=== PATIENT | male | born 1950 | race Caucasian/White ===

== ENCOUNTER 2018-03-05 10:30 | Outpatient (RCR) | payer MEDICARE, BC, SELFPAY ==
--- NOTE | 2018-02-27 09:00 | IE_ITS ---
Date: February 27, 2018 Referring: Shellie Jean DO M.D. Diagnosis: Osteoarthritis R hip, s/p CRISTAL P.T. Diagnosis: Same SUBJECTIVE: History of Present Illness: Adin complains of intermittent discomfort throughout the anteromedial aspect of the R hip. This generally occurs with prolonged weight bearing activities, minimally symptomatic with sitting or lying. He has some mild a.m. stiffness for a few mins and his symptoms improve with walking. More noticeable towards the latter part of an active day. A 67 year old male with osteoarthritis of the knees and R hip, s/p bilateral TKA 's. Most recent on the R in October 2016. He underwent a R CRISTAL on 02/02/18. Doing well post op the first 10 days, then he jumped on his lawn tractor and aggravated his condition. Symptoms increased significantly, then settled back down, but not quite back to where they were. He underwent a CT scan recently to rule out damage to the recent hip and apparently was (-) according to Adin. Pain Ratin-5/10 Pain Location: Throughout the anterolateral aspect of the R hip. Prior Level of Function: Had difficulty standing or walking for any prolonged periods due to R knee pain. Current Level of Function: Is limited to walking a couple 100 yards before fatigue with the sense of his R knee buckling, etc. . . Social: , retired. Comorbidities: BPH, hyperlipidemia and anxiety. S/p bilateral TKAs. Falls in the last year: __X__ No ____Yes - How many? ____ - (if over 2, balance SM needs to be completed) Reported hospitalizations in the last year - ____ No __X__ Yes - Dates of admission/reason: Recent CRISTAL. Medications: Simvastatin, Flomax, Prozac Quality of Life: ____ Excellent __X__ Good ____ Fair ____ Poor Standardized Measures: LEFS score: 72% OBJECTIVE: Posture: Stands slightly anteroflexed, R foot forward to the L. More weight shifted on the L more than R. Observation: (behavior, atrophy, skin color, etc.) Pleasant, no abnormal pain behavior noted. Gait: Enters the clinic using a cane. He was using a walker up until yesterday and is now back to a cane and many times without now since being encouraged to do so by Dr. Jean. When walking with a cane, he places it in his R hand. I change this to improve his gait technique by using it in the L hand. His antalgia is really no different whether he uses the can or not. Gait is characterized by antalgia on the R from mid stance to toe off with poor R knee and hip extension from mid stance to push off, along with excessive pelvic rotation posteriorly on the R. He is able to walk on his heel and toes without weakness. Palpation: Has some mild thickening and tenderness throughout the scar. His incision is healing well. Has eschar throughout the entire length, (-) erythema or odor. ROM: His lumbar movements in the upright position flexion able to touch fingertips to floor with end range drawing throughout the hamstrings. Extension is limited to approximately 0 to 10 degrees with a drawing throughout the anterior aspect of the R hip. He flexes his R hip and knee, he is able to extend 15-20 degrees. His sidebending and sidegliding are non-painful. L hip motion is full and painless with movement. R hip flexion is limited to 105 degrees, abduction initially 30-35 degrees, but with some gentle stretching and muscle energy techniques, and light traction I can get him close to 40-55 degrees. His IR in prone position is at 35-40 degrees and ER is at 30 degrees. His L hip extension is at +20 degrees, R 0 degrees with end range drawing throughout the anterior aspect of the hip. His R knee motion is at -10 to 15 degrees of extension with end range drawing throughout the popliteal fossa. Talocrural, subtalar movements are non-irritable with good functional range. Strength: Has some subtle weakness with performing SLR on the in supine position, lesser degree to abduction in sidelying position. His L hip extension in prone position is 5/5, R 2-3/5. He has decreased muscle tone through the R glut compared to L with glut set, along with poor pelvic stability with compensatory movements when extending the R hip. His external rotators are 2-3/5. Neuro: (-) SLR bilaterally with hamstring length at 60-70 degrees, (-) femoral nerve stretch. Sensation intact and has full Motor control. Special Tests: (-) SLR bilaterally, (-) slump test. Treatment: Consisted of the evaluation along with some gait training, issuing him a written and illustrated home program consisting of strengthening exercises to the R gluts and external rotators along with gentle stretching to the R hip flexor and anterior capsule. Also have him self massage the scar region. Will see him 2x a week for the next 6 weeks for gait training, core and R LE strengthening exercises with emphasis on the hip and knee musculature, stretching the anterior capsule/ hip flexor as well as the R knee. IE: [id number] Therapeutic procedures ([id number]). Direct treatment time: 60 MINS Total treatment time: 60 MINS ASSESSMENT: Patient is a 67-year-old male, referred for PT services with the diagnosis of recent R CRISTAL. Patient presents with clinical signs and symptoms consistent with this diagnosis, following a flare up of being too active, as demonstrated by the following impairment level findings: Limited ROM of R hip into extension, poor R knee extension, weakness of hip external rotators and extensors on the R. Impairments are contributing to the following functional limitations: Gait abnormalities, particularly from mid stance to toe off, along with poor ambulatory endurance and intermittent anterolateral hip discomfort. Patient is assessed as: __X__ Low 80465 ____ Moderate 35126 ____ High 24855 complexity, based on the following: History: (list): Recent R CRISTAL with resolution of his referred R knee pain. See comorbidities and social history. Examination: (list): X See above for functional limitations and impairments. Presentation: Stable . X Evolving Unstable Decision-Making: Low complexity X Moderate complexity X High complexity % Disability based on LEFS of 72% __X__ Patient requires skilled PT intervention to remediate the above functional limitations to return to: __X__ Return to full functional mobility Prognosis: __X__ Excellent __X__ Good ____ Fair ____ Poor G-Codes (fill in modifier after appropriate code): Patient's primary functional limitation is in the category of: __x__ Mobility - walking and moving around : [id number] Projected goal: __x__ Mobility - walking and moving around: [id number] STG: __6__ weeks. 1: Improve gait mechanics. 2: Stretch the anterior capsule and hip flexors to increase dynamic stability of R hip/knee. LTG: __12__ weeks. 1: Return to full, pain-free, functional mobility. 2: Independent with self-maintenance program. PLAN: Treatment: Consisted of the evaluation along with some gait training, issuing him a written and illustrated home program consisting of strengthening exercises to the R gluts and external rotators along with gentle stretching to the R hip flexor and anterior capsule. Also have him self massage the scar region. Will see him 2x a week for the next 6 weeks for gait training, core and R LE strengthening exercises with emphasis on the hip and knee musculature, stretching the anterior capsule/ hip flexor as well as the R knee. Thank you for this referral. Please do not hesitate to contact me with any questions or concerns regarding this patient's plan of care. *Dr. Jean, please sign this evaluation if you are in agreement with the above stated plan of care. cc: Shellie Jean,
--- NOTE | 2018-03-03 10:34 | PTTR_ITS ---
DATE: 03/03/18 SUBJECTIVE: Adin stating he had a fall yesterday when installing a hot water heater. He states that the heater and himself went over forward in slow motion. He did not hurt himself although he was sore throughout the day. He woke up stiff this morning but did feel better after doing his exercises. OBJECTIVE: Pt walking with antalgic gait pattern. I do recommend utilizing his cane if he is sore from his fall until he can normalize his gait some. Pt in agreement with this. We review gait mechanics with the cane in left UE. Manual therapy: ([id number]). Perform scar mobilizations right anterior hip followed by mobilization of the hip into all planes. Provide light distraction with mobilization into hip flexion to approx. 100 degrees. In prone he was stretched into internal and external rotation followed by stretching of his quads and hip flexors. Also provide overpressure stretching into right knee extension where he continues to lack a couple of degrees here. Therapeutic procedures ([id number]). * X HEP review: Review current program and progress to including standing hip flexion strengthening, clam shells, SL hip abduction, SLR and knee extension. Pt does note some discomfort through the anterior hip with SLR and he will hold on these at home if they are bothersome. See scanned documents for the list of exercises. He ends with bicycle x 6 minutes and he can add this to his home program. Direct treatment time: 35 minutes Total treatment time: 35 minutes Bhavana Mathew, PBX REPAIRER
--- NOTE | 2018-03-05 10:30 | PTTR_ITS ---
DATE: 03/05/18 SUBJECTIVE: Adin feels he is making progress each day. Continues to have some intermittent discomfort throughout the anterior aspect of the R hip with stretch and weight bearing. OBJECTIVE: Enters the clinic with a cane, but he is able to walk without. He has some mild antalgia on the R with altered R hip and knee extension from mid stance to toe off. We focused on the proper gait mechanics. His AA R hip motion is non-irritable. Flexion is at around 90 degrees and he tends to externally rotate, so I have him try and keep his leg in neutral position as he is flexing his hip. Rotation is non-irritable. He has some mild weakness with his external rotators when tested in supine position. Hip flexion is non-painful in sitting. I do not have him do a SLR in supine position yet, it causes discomfort throughout the anterior aspect of the hip and also puts added pressure on the prosthetic device, etc. He has mild tenderness to palpation throughout the anterior aspect of the R hip. (+) Alexandre test on the R at about 20 degrees. I add this to his HEP also. Therapeutic procedures ([id number]). Direct treatment time: 30 mins Total treatment time: 30 mins A: Doing well, still has some tightness throughout the anterior capsule/hip flexor resulting in some gait abnormality, but certainly better than it was last week. Will show him some additional stretches for the hip mechanism. P: Upgraded his HEP given him a written and illustrated copy. He as a follow up next week. DLW/dl
--- NOTE | 2018-03-05 14:31 | PTTR_ITS ---
03/05/18 Co-treatment with Mateo Albright PT. Please see his note for specifics: Therapeutic Procedures [id number]: Initiate a therex routine here in the clinic for gentle hip girdle strengthening exercises and general LE strengthening. Provided skilled instruction in exercise performance and proper muscle activation throughout. See flow sheet for specifics. Direct time: 20 minutes Total time: 20 minutes Bhavana Mathew , RUST PROOFER
== END 2018-03-06 23:59 | disposition home or self-care (01) ==
LOC: PT 10:30
PROVIDERS: PCP Family Medicine; Referring Provider Family Medicine; Visit Provider Family Medicine
DX: M25.561 Pain in right knee (principal); M25.551 Pain in right hip; M16.11 Unilateral primary osteoarthritis, right hip; R26.89 Other abnormalities of gait and mobility; Z96.653 Presence of artificial knee joint, bilateral
CPT/HCPCS: 97110; 97140; 97161; G8978

== ENCOUNTER 2018-07-30 15:58 | Inpatient (IN) | payer MEDICARE, BC, SELFPAY ==
[2018-07-30] VITALS (48 sets, daily range): BP systolic 132–158; BP diastolic 56–92; PULSE 66–89; RESP 20–83; TEMP 37; O2SAT 88–96
--- NOTE | 2018-07-30 16:22 | DI.CT_ITS ---
SYMPTOM/DIAGNOSIS: ? FX, TRAUMA, PAIN NONCONTRAST HEAD AND FACIAL CT: The ventricles and sulci are consistent with the patient's age. The ventricles are intact. The basilar cisterns are patent. There is a normal cabrales white matter differentiation. No intracranial hemorrhage, acute midline shift or mass effect is identified. No calvarial fracture is seen. There is a nondisplaced fracture of the right zygomatic arch. There is a minimally depressed fracture involving the lateral wall of the right maxillary sinus and a mildly depressed fracture involving the medial wall of the right maxillary sinus. There is a nondisplaced fracture involving the anterior wall of the right maxillary sinus which extends superiorly medial to the infra- orbital foramen into the floor of the right orbit. No depression is seen. No muscle entrapment is identified. The orbital and retro-orbital soft tissues are unremarkable on the right. There is a fluid level seen in the right maxillary sinus. The remaining visualized paranasal sinuses are clear except for a small fluid level in the sphenoid sinuses. The mastoid air cells are well pneumatized. Post surgical changes are seen in the right globe. IMPRESSION: 1. No acute intracranial process. 2. Fractures involving the right zygoma, the lateral and medial adrian of the right maxilla. 3. Nondisplaced fracture involving the anterior wall of the right maxilla with extension superiorly into the right orbital floor. No orbital floor depression or muscle entrapment is identified. CERVICAL SPINE CT: Multiple contiguous axial images of the cervical spine were obtained. Sagittal and coronal reformatted images were evaluated on the [employer] work station. No acute fracture or subluxation is seen in the cervical spine. There are degenerative changes present. The soft tissues are unremarkable. IMPRESSION: No acute fracture or subluxation in the cervical spine.
--- NOTE | 2018-07-30 16:29 | W.ED.GENAD ---
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 Mr. Mccracken was brought in to the ED by his neighbor after presumably sustaining a fall on the ice. Patient was actually unsure regarding potential transient loss of consciousness as he has had no memory of the event. The fall caused a subsequent trauma to the right side of his face, as well as with an initially noted irregular and unresponsive right pupil. 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 Imaging with a CT of his head, neck and face demonstrated no acute intracranial findings, but a non-displaced fracture of his right zygoma, right lateral orbital wall and anterior and medial right maxillary sinsus adrian were demonstrated. [place] [facility] [place] and advised beginning Augmentin due to the fracture through the maxillary sinus, and to have the patient follow up with ENT as an outpatient, with no surgical needs at this time. However, because of continued nausea and vomiting the patient was admitted. Since his admission a repeat CT was obtained on 07/31 showing no acute IC hemorrhage, including a SDH. Patient appears improved overall, now reported resolved nausea and headache since yesterday. No other events reported. Remains afebrile. Hospital Course: (1) Unwitnessed fall: No evidence of abnormalities by tele again overnight with the exception of mild bradycardia, and ECHO essentially normal. Cardiac Biomarkers checked and negative. Will recommend carotid ultrasound as an outpatient to complete work-up for possible syncope - however, potentially with fall on the ice and post-concussive symptoms that include loss of memory of event. Bradycardia has been intermittent and longstanding per review of prior vitals, going back to minimum of 2010. Will obtain a Zio patch for a more prolonged monitoring. Will also check an EEG per neuro recommendations, but doubt seizure activity as etiology for patient's fall without classic features. Repeat CT unchanged and without acute pathology. (2) Postconcussive syndrome: Noted. Currently nausea appears resolved, as are headaches for over 24 hours. Patient advised to return to the ED or call his doctor's office if symptoms recur or persist. (3) Facial fracture due to fall: Follow-up ENT as outpatient. Continue Augmentin for another 7 days. Currently on modified diet. (4) Head injury, closed, with concussion: Repeat Head CT negative for IC Hemorrhage. (5) Disposition: Patient discharged home with follow-up to be planned for ENT and PCP within 1 week of discharge. An outpatient EEG and Carotid ultrasound will be scheduled as well. Discharge Instructions Instructions: Syncope (DC), Fall Prevention (DC) Forms: Nursing Discharge Form Referrals: Nolvia Lam MD [ [facility] STAFF PHYSICIAN] - (Please call to schedule an appointment with Neurology.) Discharge Data Discharge Date/Time-TO BE ENTERED AT DEPARTURE: 07/30/18 23:45 Medical Decision Making Patient 67-year-old male, brought in by his , with chief complaint of facial trauma. He reports that around 1430, he fell forward striking his face. Patient does not remember the fall. Unknown if loss of consciousness. Patient was with neighbors at 1430 and then contacted his , sounding confused at 1500 making the fall between that span of time. Patient does have a history of stroke, believes this affected his left side. Denies pain elsewhere. feels that his confusion has been improving. Remembers being with neighbors, remembers lunch. A&O at this time. On exam, patient has dried blood in the nares, ecchymosis on the inferior aspect of the right eye around the orbit. The right pupil appears blown, is irregular and unresponsive. The eye is otherwise normal-appearing. Left pupil is round and responsive. Will send patient immediately to CT. Will scan head, face, neck. Strength equal in bilateral upper and lower extremities. No focal deficit noted elsewhere at this time. Patient in a collar, placed by nursing staff. I reviewed the CT quickly, and not do appreciate any large area of bleed I am waiting for radiology report. I did note changes in the left eye, questioning post surgical changes, most consistent with buckle placement. contacted his opthalmologist, she reports he has had 6 surgeries, primarily for retinal detachment. reports that right pupil is typically irregularly shaped, 6mm and fixed. This is consistent with what I am seeing on exam. EKG reviewed by Dr. Shepard. He advised inverted T waves, compared to previous, notes that this is unchanged. No acute ischemic changes noted. NSR rate 72. At the end of my shift, care transitioned to Dr. Shepard with CT and laboratory evaluation pending. HPI General Mode of arrival: ambulatory. Date/Time Provider Initiated Documentation: 07/30/18 16:22. Limitations to Documentation: no limitations. Information obtained by: patient and family (brought in by ). History of Present Illness 67 year old M presents to the emergency department with the chief complaint of head injury, described as moderate, with intensity rated at 5. Quality is described as aching, and is localized to the head and face. Patient reports no radiation. Patient started experiencing this hour(s) (1) and it has been constant. No relieving factors improve symptom(s), No exacerbating factors reported . Patient notes confusion, headaches, rash (ecchymosis), shortness of breath (chronic, reports unchanged) and syncope (unknown if LOC); denies chest pain, cough, fever/chills, malaise and nausea/vomiting. Patient did receive the following treatments prior to arrival, none Related Data Home Medications Medication Instructions Recorded Confirmed acyclovir 400 mg PO BID #180 tab-cap 05/21/16 07/30/18 Durezol 1 drp OPHTHALMIC QID drp 10/03/16 07/30/18 aspirin 325 mg PO DAILY #90 tab-cap 07/10/17 07/30/18 fluoxetine [Prozac] 20 mg PO DAILY #90 tab-cap 12/12/17 07/30/18 simvastatin 1 tab PO HS #90 tab-cap 12/12/17 07/30/18 tamsulosin 0.4 mg capsule 0.8 mg PO HS #180 tab-cap 05/21/18 07/30/18 finasteride 5 mg tablet 5 mg PO HS #90 tab-cap 06/19/18 07/30/18 acetaminophen-codeine 1 - 2 tab PO Q4H PRN PRN #20 tab 08/02/18 [Tylenol-Codeine #3] amoxicillin-pot clavulanate 1 tab PO BID #14 tab 08/02/18 Previous Rx's Medication Instructions Recorded aspirin 325 mg PO DAILY #90 tab-cap 07/10/17 fluoxetine [Prozac] 20 mg PO DAILY #90 tab-cap 12/12/17 simvastatin 1 tab PO HS #90 tab-cap 12/12/17 tamsulosin 0.4 mg capsule 0.8 mg PO HS #180 tab-cap 05/21/18 finasteride 5 mg tablet 5 mg PO HS #90 tab-cap 06/19/18 acetaminophen-codeine 1 - 2 tab PO Q4H PRN PRN #20 tab 08/02/18 [Tylenol-Codeine #3] amoxicillin-pot clavulanate 1 tab PO BID #14 tab 08/02/18 Allergies Allergy/AdvReac Type Severity Reaction Status Date / Time Sulfa (Sulfonamide Allergy Unknown Unverified 07/30/18 16:20 Antibiotics) General Stated Complaint: AMS/LOC SUSAN: 3 Review of Systems Constitutional Reports as per HPI, Denies chills, Reports fatigue, Denies fever(s), Reports headache(s) and Denies weakness Eyes Reports as per HPI, Denies change in vision (chronic right eye visual changes), Denies diplopia and Denies eye discharge ENT Denies ear discharge, Denies otalgia, Reports facial pain (around right eye), Reports headache(s), Denies hearing loss, Denies lip swelling, Reports epistaxis (since resolved), Denies mouth lesions, Denies mouth pain and Denies sore throat Cardiovascular Reports as per HPI, Denies chest pain and Reports dyspnea (chronic, unchanged) Respiratory Denies cough, Denies pain on inspiration, Denies pain with cough and Reports dyspnea (chronic, unchanged) Gastrointestinal Reports as per HPI, Denies abdominal pain, Denies nausea and Denies vomiting Genitourinary Reports as per HPI and Denies urinary incontinence Musculoskeletal Reports as per HPI Integumentary/Breasts Reports as per HPI and Denies rash Neurologic Reports headache(s) and Denies weakness Endocrine Reports fatigue Allergic/Immunologic Denies lip swelling [facility] Medical History Hyperlipidemia (Chronic) BPH (benign prostatic hyperplasia) (Chronic) Osteoarthritis, hip, bilateral (Chronic) Osteoarthritis, knee (Chronic) History of CVA (cerebrovascular accident) (Resolved) History of CVA (cerebrovascular accident) (Resolved) Surgical History H/O cystoscopy (Resolved) H/O: vasectomy (Resolved) History of bilateral knee arthroplasty (Resolved) History of detached retina repair (Resolved) History of tonsillectomy and adenoidectomy (Resolved) History of total right hip arthroplasty (Resolved) Status post removal of Zenker's diverticulum (Resolved) Arthroplasty of knee Cystoscopy Replacement of total knee joint (11/27/16) Tonsillectomy and adenoidectomy Vasectomy Family History Mother Essential hypertension Father Neoplasm Sister No problems noted. Grandfather Cancer Son No problems noted. Daughter No problems noted. Daughter No problems noted. Social History Smoking/Tobacco Use Status: Never Exam Const General: cooperative, healthy appearing, comfortable, no acute distress and well developed Nutritional Appearance: average body habitus and well nourished Orientation: alert, awake and oriented x3 HENMT Head: normal to inspection, no palpable skull fracture, normocephalic and atraumatic Ears: hearing grossly normal bilaterally, external ears normal and TM's normal bilaterally (no hemotympanum noted) General nose exam: nares abnormal (both filled with dried blood, no polyps noted, no active bleeding) Mouth: oral mucosae normal, lip normal and tongue normal Throat: posterior oropharynx normal Eyes General: appearance normal, both eyes and all related structures Alignment and Position: alignment normal Periorbital: periorbital findings normal Eyelids: eyelids normal Conjunctivae: conjunctivae normal Pupils: pupils not ERRL (right pupil is fixed, dialated and irregularly shaped) EOM: EOM intact bilaterally Chest Chest: normal inspection of the chest, normal palpation of entire chest wall, no crepitus and no localized rib tenderness Resp Effort & Inspection: normal respiratory effort, able to speak in complete sentences and no respiratory distress Auscultation: clear to auscultation bilaterally, no rales, no rhonchi and no wheezes Cardio Rate: regular rate Rhythm: regular rhythm Heart Sounds: S1 normal and S2 normal GI Inspection: normal to inspection, no abdominal wall ecchymosis, no edema and non-distended Palpation: soft, no hepatosplenomegaly, not firm, no guarding, no pulsatile masses, not rigid and nontender Auscultation: normal bowel sounds Back/Spine/Pelvis Back: no CVA tenderness Cervical Spine: collar present Thoracic/Lumbar Spine: thoracic and lumbar spine normal to inspection, thoraco-lumbar ROM normal, No thoraco-lumbar ROM limited, No thoraco-lumbar spasm and No thoracic spinal tenderness Pelvis: no pain with anterior-posterior compression and no pain with lateral compression Skin General skin exam: ecchymosis (around right eye) Neuro General: alert, awake, oriented x3, gait normal, tone normal and moves all extremities Cranial Nerves: CN's II-XI intact bilaterally Cognition: normal cognition Speech: speech normal Motor: muscle tone normal throughout, strength 5/5 throughout, no pronator drift and no fasciculations Sensory Exam: no sensory deficits noted (no saddle paresthesias) Extrem General: normal to inspection, full ROM, normal capillary refill, no pedal edema and no calf tenderness Psych Appearance: grossly normal and well kempt Mental Status: mental status grossly normal Speech and Movement: speech and movement normal Course Vital Signs Temperature 37 C 07/30/18 16:18 Pulse 83 07/30/18 16:18 Respiratory Rate 83 H 07/30/18 16:18 Blood Pressure 138/84 07/30/18 16:18 Pulse Oximetry 92 L 07/30/18 16:18 Temperature 37 C 07/30/18 16:18 Temperature Source Skin 07/30/18 16:18 Pulse 83 07/30/18 16:18 Respiratory Rate 83 H 07/30/18 16:18 Blood Pressure 138/84 07/30/18 16:18 Blood Pressure Position Supine 07/30/18 16:18 Pulse Oximetry 92 L 07/30/18 16:18 Oxygen Delivery Method Room Air 07/30/18 16:18 Oxygen Flow Rate 0 07/30/18 16:18 Pain Level 5 07/30/18 16:18
[2018-07-30 17:08] LABS: Absolute Basophil Count 0.03 k/cumm (0.0-0.2); Absolute Eosinophil Count 0.09 k/cumm (0.0-0.7); Absolute Lymphocyte Count 1.29 k/cumm (1.2-3.4); Absolute Monocyte Count 0.65 k/cumm (0.11-0.7); Absolute Neutrophil Count 3.49 k/cumm (1.2-6.7); Basophils % 0.5; Eosinophils % 1.6; HCT 43.7 % (40.0-50.0); HGB 14.8 g/dL (13.5-17.5); Lymphocytes % 23.2; Mean Corp. HGB Concentration 33.9 g/dL (32.0-36.0); Mean Corpuscular Hemoglobin 31.1 pg (27.0-33.0); Mean Corpuscular Volume 91.8 fL (80-95); Mean Platelet Volume 8.6 fL (8.0-11.0); Monocytes % 11.7; Platelet Count 197 x1000/uL (130-400); RBC 4.76 m/cumm (4.50-6.00); RBC Distribution Width 13.1 % (11.8-14.1); White Blood Cell Count 5.55 k/cumm (4.4-10.8)
[2018-07-30] MEDS: Normal Saline 1,000 ML 150 ML IV (17:14)
[2018-07-30 17:23] LABS: ALT 37 U/L (12-78); AST 28 U/L (15-37); Albumin 3.8 g/dL (3.4-5.0); Alkaline Phosphatase 65 U/L (46-116); Anion Gap 7.3 mmol/L (3-11); BUN 22 mg/dL (7-18); Bilirubin, Total 0.4 mg/dL (0.2-1.0); CO2 31.7 mmol/L (21.0-32.0); CREATININE 1.01 mg/dL (0.70-1.30); Calcium 8.9 mg/dL (8.5-10.1); Chloride 103 mmol/L (98-107); Glucose 113 mg/dL (70-100); Magnesium 2.3 mg/dL (1.8-2.4); Potassium 3.9 mmol/L (3.5-5.1); Sodium 142 mmol/L (136-145); Total Protein 7.7 g/dL (6.4-8.2); Troponin I 0.03 ng/mL (0.00-0.06)
--- NOTE | 2018-07-30 17:33 | DI.VRAD_ITS ---
EXAM: CT Head Without Contrast EXAM DATE/TIME: 07/30/2018 4:33 PM CLINICAL HISTORY: 67 years old, male; Pain; Other: Pain trauma; Other: Just facial bones; Other: R/O FX TECHNIQUE: Axial computed tomography images of the head/brain without contrast. COMPARISON: CT CERVICAL SPINE WITHOUT CONTRA 04/08/2014 6:37 AM FINDINGS: Brain: Mild age-related involutional changes. No hemorrhage, mass or other acute findings. Ventricles: Normal. No ventriculomegaly. Bones/joints: Normal. No acute fracture. Sinuses: An air-fluid level is present in the maxillary sinus. Please see the facial bone CT report. Mastoid air cells: Normal as visualized. No mastoid effusion. Orbits: Postsurgical changes of the right globe. Soft tissues: Normal. IMPRESSION: No acute intracranial findings. EXAM: CT Maxillofacial Without Contrast EXAM DATE/TIME: 07/30/2018 4:33 PM CLINICAL HISTORY: 67 years old, male; Pain; Other: Pain trauma; Other: Just facial bones; Other: R/O FX TECHNIQUE: Axial computed tomography images of the face without intravenous contrast. COMPARISON: CT CERVICAL SPINE WITHOUT CONTRA 04/08/2014 6:37 AM FINDINGS: Orbits: No acute intraorbital abnormality. Postsurgical changes of the right globe. Sinuses: Right maxillary sinus air fluid level suggestive of hemorrhage given the fractures. Bones/joints: There is a nondisplaced right zygomatic fracture with minimally displaced fracture of the right lateral orbital wall. A nondisplaced fracture is seen to involve the anterior right maxillary sinus with extension into the adjacent nasal cavity involving the medial right maxillary sinus wall. No significant displacement. Nasal septal deviation is present. Soft tissues: No significant facial soft tissue swelling. IMPRESSION: Nondisplaced fractures involving the right zygoma, right lateral orbital wall, anterior and medial right maxillary sinus adrian. EXAM: CT Cervical Spine Without Contrast EXAM DATE/TIME: 07/30/2018 4:33 PM CLINICAL HISTORY: 67 years old, male; Pain; Other: Pain trauma; Other: Just facial bones; Other: R/O FX TECHNIQUE: Axial computed tomography images of the cervical spine without intravenous contrast. COMPARISON: CT CERVICAL SPINE WITHOUT CONTRA 04/08/2014 6:37 AM FINDINGS: Vertebrae: No acute fracture. Normal alignment. Discs/Spinal canal/Neural foramina: Moderate degenerative changes without severe canal stenosis. Soft tissues: Unremarkable. Lungs: Lung apices are normal. IMPRESSION: No acute findings. Dictated and Authenticated by: Timothy Diaz MD. Ordering:CHIN Henning MD
[2018-07-30] MEDS: HYDROmorphone 2 MG/ML VIAL 1 MG IVP (17:39)
[2018-07-30 17:49] LABS: PTT Activated 21.3 sec (21.0-31.4); Prothrombin Time 9.7 sec (9.3-11.0)
[2018-07-30] MEDS: Ondansetron 4 MG/2 ML VIAL (18:39)
--- NOTE | 2018-07-30 18:55 | DI.RAD_ITS ---
SYMPTOMS/DIAGNOSIS: FALL, RT HIP PAIN RIGHT HIP AND PELVIS: No acute fracture or dislocation is seen. There is a right hip prosthesis which appears stable. IMPRESSION: No acute fracture or dislocation.
--- NOTE | 2018-07-30 19:39 | DI.VRAD_ITS ---
EXAM: XR Right Hip with Pelvis when Performed, 2 or 3 Views EXAM DATE/TIME: 07/30/2018 7:04 PM CLINICAL HISTORY: 67 years old, male; Pain; Hip pain; Right hip; Prior surgery; Surgery date: 6+ months; Surgery type: Hip replacement. Right hip pain. TECHNIQUE: XR Right hip with pelvis when performed, 2 or 3 views COMPARISON: CR RT HIP COMPLETE AP PELVIS 03/14/2015 10:09 AM FINDINGS: Bones/joints: Patient status post complete right hip arthroplasty with satisfactory anatomic alignment. No discrete evidence for hardware complications. No acute skeletal pathology otherwise noted. Soft tissues: Unremarkable. Vasculature: Pelvic phleboliths incidentally seen. IMPRESSION: Status post complete right hip arthroplasty with satisfactory anatomic alignment and no discrete evidence of complications at this time. Dictated and Authenticated by: Roque Villanueva MD. Ordering:CHIN Henning MD
[2018-07-30] MEDS: Metoclopramide 10 MG/2 ML VIAL (21:03)
--- NOTE | 2018-07-30 21:10 | DI.RAD_ITS ---
SYMPTOMS/DIAGNOSIS: MILD HYPOXEMIA PORTABLE AP CHEST: Comparison is 03/22/11. The heart size is difficult to evaluate due to the elevated right hemidiaphragm and patient positioning. The pulmonary vasculature appears within normal limits. There is marked elevation of the right hemidiaphragm. No definite focal consolidating infiltrates, effusions or pneumothoraces are identified. There are increased interstitial lung markings which may be due to crowding of the pulmonary vasculature due to the low lung volumes. Mild interstitial infiltrate/edema can not be excluded. IMPRESSION: 1. Low lung volumes and marked elevation of the right hemidiaphragm. 2. Prominent interstitial markings. This may be due to crowding of the pulmonary vasculature due to the low lung volumes. Interstitial infiltrate/edema can not be excluded. Please correlate clinically.
--- NOTE | 2018-07-30 21:24 | DI.VRAD_ITS ---
EXAM: XR Chest, 1 View EXAM DATE/TIME: 07/30/2018 8:59 PM CLINICAL HISTORY: 67 years old, male; Signs and symptoms; Other: Mild hypoxia; Patient HX: Mild hypoxia. PT sts diaphragm issue diagnosed 10 yrs ago. TECHNIQUE: XR of the chest, 1 view. COMPARISON: CTA THORAX 09/17/2016 12:28 PM FINDINGS: Lungs: There is poor ventilation of the lungs, accounting for mild diffuse increase in pulmonary parenchymal density. Increased haziness in the left lung base is favored to be related to superimposition of soft tissues. Slight prominence of interstitial markings diffusely could be related to low lung volumes, however early acute interstitial disease is also a possibility. Elevation of the right hemidiaphragm with associated compressive atelectasis. Pleural space: Unremarkable. No pleural effusion. No pneumothorax. Heart/Mediastinum: Cardiomediastinal silhouette is difficult to evaluate due to silhouetting. Bones/joints: No acute skeletal abnormality. IMPRESSION: Low lung volumes causes crowding of the bronchovascular structures, however mild acute interstitial disease (interstitial edema) could be present as well. Increased haziness in the left lung base is felt to be related to superimposition of soft tissues. Followup advised. Dictated and Authenticated by: Roque Villanueva MD. Ordering:CHIN Henning MD
--- NOTE | 2018-07-30 21:35 | W.ED.GENAD ---
Discharge Plan Disposition Patient Disposition: [facility] INPATIENT Condition: Good Discharge Details Chief Complaint: Trauma Clinical Impression: Concussion, Vomiting, Zygoma fracture, Fracture of maxillary sinus, Closed fracture of lateral wall of orbit Primary Care Provider: Tiago Demarco ED Provider: Juvencio Shepard Home Meds and New Rx's Prescriptions: No Action acyclovir 400 MG tablet 400 mg PO BID Qty: 180 RF: 4 difluprednate [Durezol] 5 ML drops 1 drp Ophthalmic QID RF: 0 aspirin 325 MG tablet 325 mg PO DAILY Qty: 90 RF: 4 simvastatin 40 MG tablet 1 tab PO HS Qty: 90 RF: 4 fluoxetine [Prozac] 20 MG capsule 20 mg PO DAILY Qty: 90 RF: 4 tamsulosin 0.4 mg capsule 0.8 mg PO HS Qty: 180 RF: 3 finasteride 5 mg tablet 5 mg PO HS Qty: 90 RF: 4 Medical Decision Making The patient was signed out to be my my colleague Lata Gardner. We are pending CT results at that time. CT results have returned of the face and demonstrate evidence of a nondisplaced fracture involving the right zygoma, right lateral orbital wall, anterior and medial right maxillary sinus adrian. I did go and reevaluate the patient myself, the patient demonstrates consistent chronic vision in his right eye, a consistently chronic oblong and unreactive pupil secondary to multiple surgeries in his right eye, and normal planes of vision, with no clinical evidence of entrapment. I did contact ENT/OMFS at [facility] and spoke with Dr. Perez, he reviewed the CT scan images, and felt that there was no need for surgical intervention, especially in regards to the absence of clinical signs of entrapment. OMFS recommends discharge, follow-up with ENT, and antibiotics/Augmentin. I did go in and reassessed the patient again, at this time he was complaining of slight hip pain which she was not endorsing previously. Hip and pelvis is stable on exam, negative logroll, no evidence of significant abnormality. Additionally his oxygen saturations are between 88-92. He has no history of tobacco abuse or oxygen use. Lung sounds are clear my exam. We will get an x-ray though. 9:46 PM X-ray results of the hip have returned and is negative for any acute process, the patients chest x-ray does demonstrate a notable right-sided hemidiaphragm, which is chronic. Minimal atelectasis, no signs of significant focal pneumonia. Unfortunately in spite of the benign imaging workup aside for the CT face the patient has had persistent nausea and vomiting here. Repeat abdominal exam demonstrates no abdominal tenderness or distention. Laboratory workup demonstrates no significant abnormality, electrolyte abnormalities, renal function abnormalities, he has a normal bilirubin, normal AST and ALT, and no white count. Patient's vomiting was resistant to Zofran, and seems to be slightly better controlled with Reglan however he does have consistent nausea, and occasional gagging. I feel the symptoms are most likely secondary to a relatively severe concussion. Repeat neurologic exam is normal and included below his mental status has improved, he still does have a mild confusion, however with the patient's multiple facial fractures, persistent nausea and vomiting in spite of antiemetics, the nature of his symptoms, in addition to the fact that family does not feel comfortable with him at this time I do feel that 24-hour observation is indicated. Initially there were no beds available here at the hospital as we have been told, we did contact [facility], in [facility], none of which were available to accept the patient. A room did open up here at the hospital and we have contacted hospitalist for potential admission. 10:04 PM I discussed the case with Dr. Mercado. I have extensively reviewed the treatment plan and discharge instructions with the patient. I have addressed all patient concerns at this time. The patient was made aware of what symptoms to monitor for that would warrant a return to the emergency department. Discussed the plan with the patient, they demonstrate verbal understanding and agreement with our assessment and plan at this time. FINDINGS: Brain: Mild age-related involutional changes. No hemorrhage, mass or other acute findings. Ventricles: Normal. No ventriculomegaly. Bones/joints: Normal. No acute fracture. Sinuses: An air-fluid level is present in the maxillary sinus. Please see the facial bone CT report. Mastoid air cells: Normal as visualized. No mastoid effusion. Orbits: Postsurgical changes of the right globe. Soft tissues: Normal. IMPRESSION: No acute intracranial findings. FINDINGS: Orbits: No acute intraorbital abnormality. Postsurgical changes of the right globe. Sinuses: Right maxillary sinus air fluid level suggestive of hemorrhage given the fractures. Bones/joints: There is a nondisplaced right zygomatic fracture with minimally displaced fracture of the right lateral orbital wall. A nondisplaced fracture is seen to involve the anterior right maxillary sinus with extension into the adjacent nasal cavity involving the medial right maxillary sinus wall. No significant displacement. Nasal septal deviation is present. Soft tissues: No significant facial soft tissue swelling. IMPRESSION: Nondisplaced fractures involving the right zygoma, right lateral orbital wall, anterior and medial right maxillary sinus adrian. FINDINGS: Vertebrae: No acute fracture. Normal alignment. Discs/Spinal canal/Neural foramina: Moderate degenerative changes without severe canal stenosis. Soft tissues: Unremarkable. Lungs: Lung apices are normal. IMPRESSION: No acute findings. Thank you for allowing us to participate in the care of your patient. Dictated and Authenticated by: Timothy Diaz MD FINDINGS: Lungs: There is poor ventilation of the lungs, accounting for mild diffuse increase in pulmonary parenchymal density. Increased haziness in the left lung base is favored to be related to superimposition of soft tissues. Slight prominence of interstitial markings diffusely could be related to low lung volumes, however early acute interstitial disease is also a possibility. Elevation of the right hemidiaphragm with associated compressive atelectasis. Pleural space: Unremarkable. No pleural effusion. No pneumothorax. Heart/Mediastinum: Cardiomediastinal silhouette is difficult to evaluate due to silhouetting. Bones/joints: No acute skeletal abnormality. IMPRESSION: Low lung volumes causes crowding of the bronchovascular structures, however mild acute interstitial disease (interstitial edema) could be present as well. Increased haziness Dictated and Authenticated by: Roque Lazaro MD COMPARISON: CR RT HIP COMPLETE AP PELVIS 03/14/2015 10:09 AM FINDINGS: Bones/joints: Patient status post complete right hip arthroplasty with satisfactory anatomic alignment. No discrete evidence for hardware complications. No acute skeletal pathology otherwise noted. Soft tissues: Unremarkable. Vasculature: Pelvic phleboliths incidentally seen. IMPRESSION: Status post complete right hip arthroplasty with satisfactory anatomic alignment and no discrete evidence of complications at this time. Thank you for allowing us to participate in the care of your patient. Dictated and Authenticated by: Roque Lazaro MD [facility] General Mode of arrival: ambulatory. Date/Time Provider Initiated Documentation: 07/30/18 16:22. Limitations to Documentation: no limitations. Information obtained by: patient and family (brought in by ). History of Present Illness with intensity rated at 5. Quality is described as aching, and is localized to the head and face. No relieving factors improve symptom(s), No exacerbating factors reported . Patient notes confusion, headaches, rash (ecchymosis), shortness of breath (chronic, reports unchanged) and syncope (unknown if LOC); denies chest pain, cough, fever/chills, malaise and nausea/vomiting. Patient did receive the following treatments prior to arrival, none Related Data Home Medications Medication Instructions Recorded Confirmed acyclovir 400 mg PO BID #180 tab-cap 05/21/16 difluprednate [Durezol] 1 drp OPHTHALMIC QID drp 10/03/16 aspirin 325 mg PO DAILY #90 tab-cap 07/10/17 fluoxetine [Prozac] 20 mg PO DAILY #90 tab-cap 12/12/17 simvastatin 1 tab PO HS #90 tab-cap 12/12/17 tamsulosin 0.4 mg capsule 0.8 mg PO HS #180 tab-cap 05/21/18 finasteride 5 mg tablet 5 mg PO HS #90 tab-cap 06/19/18 Previous Rx's Medication Instructions Recorded aspirin 325 mg PO DAILY #90 tab-cap 07/10/17 fluoxetine [Prozac] 20 mg PO DAILY #90 tab-cap 12/12/17 simvastatin 1 tab PO HS #90 tab-cap 12/12/17 tamsulosin 0.4 mg capsule 0.8 mg PO HS #180 tab-cap 18 finasteride 5 mg tablet 5 mg PO HS #90 tab-cap 18 Allergies Allergy/AdvReac Type Severity Reaction Status Date / Time Sulfa (Sulfonamide Allergy Unknown Unverified 07/30/18 16:20 Antibiotics) General Stated Complaint: AMS/LOC SUSAN: 3 PFSH Surgical History Arthroplasty of knee Cystoscopy Replacement of total knee joint (11/27/16) Tonsillectomy and adenoidectomy Vasectomy Family History Mother Essential hypertension Father Neoplasm Sister No problems noted. Grandfather Cancer Son No problems noted. Daughter No problems noted. Daughter No problems noted. Social History Smoking/Tobacco Use Status: Never Course Vital Signs Temperature 37 C 07/30/18 16:18 Pulse 83 07/30/18 16:18 Respiratory Rate 83 H 07/30/18 16:18 Blood Pressure 138/84 07/30/18 16:18 Pulse Oximetry 92 L 07/30/18 16:18 Temperature 37 C 07/30/18 16:18 Temperature Source Skin 07/30/18 16:18 Pulse 68 07/30/18 20:41 Respiratory Rate 83 H 07/30/18 16:18 Respiratory Effort 07/30/18 18:16 Blood Pressure 158/87 H 07/30/18 20:41 Blood Pressure Mean 105 07/30/18 20:41 Blood Pressure Position Supine 07/30/18 16:18 Pulse Oximetry 95 07/30/18 21:10 Oxygen Delivery Method Room Air 07/30/18 16:18 Oxygen Flow Rate 0 07/30/18 16:18 Pain Level 5 07/30/18 16:18 Lab/Test Results Lab/Test Results: Laboratory Tests Range/Units 07/30/18 07/30/18 07/30/18 16:50 16:50 16:50 WBC (4.4-10.8) k/cumm 5.55 RBC (4.50-6.00) m/cumm 4.76 Hgb (13.5-17.5) g/dL 14.8 Hct (40.0-50.0) % 43.7 MCV (80-95) fL 91.8 MCH (27.0-33.0) pg 31.1 MCHC (32.0-36.0) g/dL 33.9 RDW (11.8-14.1) % 13.1 Plt Count (130-400) x1000/uL 197 MPV (8.0-11.0) fL 8.6 Immature Gran % 0.0 Neutrophils % 63.0 Lymphocytes % 23.2 Monocytes % 11.7 Eosinophils % 1.6 Basophils % 0.5 Absolute Neutrophils (1.2-6.7) k/cumm 3.49 Absolute Lymphocytes (1.2-3.4) k/cumm 1.29 Absolute Monocytes (0.11-0.7) k/cumm 0.65 Absolute Eosinophils (0.0-0.7) k/cumm 0.09 Absolute Basophils (0.0-0.2) k/cumm 0.03 PT (9.3-11.0) sec 9.7 INR (0.9-1.1) 1.0 APTT (21.0-31.4) sec 21.3 Sodium (136-145) mmol/L 142 Potassium (3.5-5.1) mmol/L 3.9 Chloride (98-107) mmol/L 103 Carbon Dioxide (21.0-32.0) mmol/L 31.7 Anion Gap (3-11) mmol/L 7.3 BUN (7-18) mg/dL 22 H Creatinine (0.70-1.30) mg/dL 1.01 Estimated GFR/1.73 m2 (mL/min/1.73m2) >= 60.00 Glucose (70-100) mg/dL 113 H Calcium (8.5-10.1) mg/dL 8.9 Magnesium (1.8-2.4) mg/dL 2.3 Total Bilirubin (0.2-1.0) mg/dL 0.4 AST (15-37) U/L 28 ALT (12-78) U/L 37 Alkaline Phosphatase (46-116) U/L 65 Troponin I (0.00-0.06) ng/mL 0.03 Total Protein (6.4-8.2) g/dL 7.7 Albumin (3.4-5.0) g/dL 3.8
--- NOTE | 2018-07-30 21:39 | ED.GENADUL_ITS ---
Discharge Plan Disposition Patient Disposition: [facility] INPATIENT Condition: Good Discharge Details Chief Complaint: Trauma Clinical Impression: Concussion, Vomiting, Zygoma fracture, Fracture of maxillary sinus, Closed fracture of lateral wall of orbit Primary Care Provider: Tiago Demarco ED Provider: Juvencio Shepard Home Meds and New Rx's Prescriptions: No Action acyclovir 400 MG tablet 400 mg PO BID Qty: 180 RF: 4 difluprednate [Durezol] 5 ML drops 1 drp Ophthalmic QID RF: 0 aspirin 325 MG tablet 325 mg PO DAILY Qty: 90 RF: 4 simvastatin 40 MG tablet 1 tab PO HS Qty: 90 RF: 4 fluoxetine [Prozac] 20 MG capsule 20 mg PO DAILY Qty: 90 RF: 4 tamsulosin 0.4 mg capsule 0.8 mg PO HS Qty: 180 RF: 3 finasteride 5 mg tablet 5 mg PO HS Qty: 90 RF: 4 Medical Decision Making The patient was signed out to be my my colleague Lata Gardner. We are pending CT results at that time. CT results have returned of the face and demonstrate evidence of a nondisplaced fracture involving the right zygoma, right lateral orbital wall, anterior and medial right maxillary sinus adrian. I did go and reevaluate the patient myself, the patient demonstrates consistent chronic vision in his right eye, a consistently chronic oblong and unreactive pupil secondary to multiple surgeries in his right eye, and normal planes of vision, with no clinical evidence of entrapment. I did contact ENT/OMFS at [facility] and spoke with Dr. Perez, he reviewed the CT scan images, and felt that there was no need for surgical intervention, especially in regards to the absence of clinical signs of entrapment. OMFS recommends discharge, follow-up with ENT, and antibiotics/Augmentin. I did go in and reassessed the patient again, at this time he was complaining of slight hip pain which she was not endorsing previously. Hip and pelvis is stable on exam, negative logroll, no evidence of significant abnormality. Additionally his oxygen saturations are between 88-92. He has no history of tobacco abuse or oxygen use. Lung sounds are clear my exam. We will get an x-ray though. 9:46 PM X-ray results of the hip have returned and is negative for any acute process, the patients chest x-ray does demonstrate a notable right-sided hemidiaphragm, which is chronic. Minimal atelectasis, no signs of significant focal pneumonia. Unfortunately in spite of the benign imaging workup aside for the CT face the patient has had persistent nausea and vomiting here. Repeat abdominal exam demonstrates no abdominal tenderness or distention. Laboratory workup demonstrates no significant abnormality, electrolyte abnormalities, renal function abnormalities, he has a normal bilirubin, normal AST and ALT, and no white count. Patient's vomiting was resistant to Zofran, and seems to be slightly better controlled with Reglan however he does have consistent nausea, and occasional gagging. I feel the symptoms are most likely secondary to a relatively severe concussion. Repeat neurologic exam is normal and included below his mental status has improved, he still does have a mild confusion, however with the patient's multiple facial fractures, persistent nausea and vomiting in spite of antiemetics, the nature of his symptoms, in addition to the fact that family does not feel comfortable with him at this time I do feel that 24-hour observation is indicated. Initially there were no beds available here at the hospital as we have been told, we did contact [facility], in [facility], none of which were available to accept the patient. A room [facility] and we have contacted hospitalist for potential admission. 10:04 PM I discussed the case with Dr. Mercado. I have extensively reviewed the t reatment plan and discharge instructions with the patient. I have addressed all patient concerns at this time. The patient was made aware of what symptoms to monitor for that would warrant a return to the emergency department. Discussed the plan with the patient, they demonstrate verbal understanding and agreement with our assessment and plan at this time. FINDINGS: Brain: Mild age-related involutional changes. No hemorrhage, mass or other acute findings. Ventricles: Normal. No ventriculomegaly. Bones/joints: Normal. No acute fracture. Sinuses: An air-fluid level is present in the maxillary sinus. Please see the facial bone CT report. Mastoid air cells: Normal as visualized. No mastoid effusion. Orbits: Postsurgical changes of the right globe. Soft tissues: Normal. IMPRESSION: No acute intracranial findings. FINDINGS: Orbits: No acute intraorbital abnormality. Postsurgical changes of the right globe. Sinuses: Right maxillary sinus air fluid level suggestive of hemorrhage given the fractures. Bones/joints: There is a nondisplaced right zygomatic fracture with minimally displaced fracture of the right lateral orbital wall. A nondisplaced fracture is seen to involve the anterior right maxillary sinus with extension into the adjacent nasal cavity involving the medial right maxillary sinus wall. No significant displacement. Nasal septal deviation is present. Soft tissues: No significant facial soft tissue swelling. IMPRESSION: Nondisplaced fractures involving the right zygoma, right lateral orbital wall, anterior and medial right maxillary sinus adrian. FINDINGS: Vertebrae: No acute fracture. Normal alignment. Discs/Spinal canal/Neural foramina: Moderate degenerative changes without severe canal stenosis. Soft tissues: Unremarkable. Lungs: Lung apices are normal. IMPRESSION: No acute findings. Thank you for allowing us to participate in the care of your patient. Dictated and Authenticated by: Timothy Diaz MD FINDINGS: Lungs: There is poor ventilation of the lungs, accounting for mild diffuse increase in pulmonary parenchymal density. Increased haziness in the left lung base is favored to be related to superimposition of soft tissues. Slight prominence of interstitial markings diffusely could be related to low lung volumes, however early acute interstitial disease is also a possibility. Elevation of the right hemidiaphragm with associated compressive atelectasis. Pleural space: Unremarkable. No pleural effusion. No pneumothorax. Heart/Mediastinum: Cardiomediastinal silhouette is difficult to evaluate due to silhouetting. Bones/joints: No acute skeletal abnormality. IMPRESSION: Low lung volumes causes crowding of the bronchovascular structures, however mild acute interstitial disease (interstitial edema) could be present as well. Increased haziness Dictated and Authenticated by: Roque Lazaro MD COMPARISON: CR RT HIP COMPLETE AP PELVIS 03/14/2015 10:09 AM FINDINGS: Bones/joints: Patient status post complete right hip arthroplasty with satisfactory anatomic alignment. No discrete evidence for hardware complications. No acute skeletal pathology otherwise noted. Soft tissues: Unremarkable. Vasculature: Pelvic phleboliths incidentally seen. IMPRESSION: Status post complete right hip arthroplasty with satisfactory anatomic alignment and no discrete evidence of complications at this time. Thank you for allowing us to participate in the care of your patient. Dictated and Authenticated by: Roque Lazaro MD [facility] General Mode of arrival: ambulatory . Date/Time Provider Initiated Documentation: 07/30/18 16:22 . Limitations to Documentation: no limitations . Information obtained by: patient and family (brought in by ) . History of Present Illness with intensity rated at 5. Quality is described as aching, and is localized to the head and face. No relieving factors improve symptom(s), No exacerbating factors reported . Patient notes confusion, headaches, rash (ecchymosis), shortness of breath (chronic, reports unchanged) and syncope (unknown if LOC); denies chest pain, cough, fever/chills, malaise and nausea/vomiting. Patient did receive the following treatments prior to arrival, none Related Data Home Medications Medication Instructions Recorded Confirmed acyclovir 400 mg PO BID #180 tab-cap 05/21/16 difluprednate [Durezol] 1 drp OPHTHALMIC QID drp 10/03/16 aspirin 325 mg PO DAILY #90 tab-cap 07/10/17 fluoxetine [Prozac] 20 mg PO DAILY #90 tab-cap 12/12/17 simvastatin 1 tab PO HS #90 tab-cap 12/12/17 tamsulosin 0.4 mg capsule 0.8 mg PO HS #180 tab-cap 05/21/18 finasteride 5 mg tablet 5 mg PO HS #90 tab-cap 06/19/18 Previous Rx's Medication Instructions Recorded aspirin 325 mg PO DAILY #90 tab-cap 07/10/17 fluoxetine [Prozac] 20 mg PO DAILY #90 tab-cap 12/12/17 simvastatin 1 tab PO HS #90 tab-cap 12/12/17 tamsulosin 0.4 mg capsule 0.8 mg PO HS #180 tab-cap 18 finasteride 5 mg tablet 5 mg PO HS #90 tab-cap 06/19/18 Allergies Allergy/AdvReac Type Severity Reaction Status Date / Time Sulfa (Sulfonamide Allergy Unknown Unverified 07/30/18 16:20 Antibiotics) General Stated Complaint: AMS/LOC SUSAN: 3 PFSH Surgical History Arthroplasty of knee Cystoscopy Replacement of total knee joint (11/27/16) Tonsillectomy and adenoidectomy Vasectomy Family History Mother Essential hypertension Father Neoplasm Sister No problems noted. Grandfather Cancer Son No problems noted. Daughter No problems noted. Daughter No problems noted. Social History Smoking/Tobacco Use Status: Never Course Vital Signs Temperature 37 C 07/30/18 16:18 Pulse 83 07/30/18 16:18 Respiratory Rate 83 H 07/30/18 16:18 Blood Pressure 138/84 07/30/18 16:18 Pulse Oximetry 92 L 07/30/18 16:18 Temperature 37 C 07/30/18 16:18 Temperature Source Skin 07/30/18 16:18 Pulse 68 07/30/18 20:41 Respiratory Rate 83 H 07/30/18 16:18 Respiratory Effort 07/30/18 18:16 Blood Pressure 158/87 H 07/30/18 20:41 Blood Pressure Mean 105 07/30/18 20:41 Blood Pressure Position Supine 07/30/18 16:18 Pulse Oximetry 95 07/30/18 21:10 Oxygen Delivery Method Room Air 07/30/18 16:18 Oxygen Flow Rate 0 07/30/18 16:18 Pain Level 5 07/30/18 16:18 Lab/Test Results Lab/Test Results: Laboratory Tests Range/Units 07/30/18 07/30/18 07/30/18 16:50 16:50 16:50 WBC (4.4-10.8) k/cumm 5.55 RBC (4.50-6.00) m/cumm 4.76 Hgb (13.5-17.5) g/dL 14.8 Hct (40.0-50.0) % 43.7 MCV (80-95) fL 91.8 MCH (27.0-33.0) pg 31.1 MCHC (32.0-36.0) g/dL 33.9 RDW (11.8-14.1) % 13.1 Plt Count (130-400) x1000/uL 197 MPV (8.0-11.0) fL 8.6 Immature Gran % 0.0 Neutrophils % 63.0 Lymphocytes % 23.2 Monocytes % 11.7 Eosinophils % 1.6 Basophils % 0.5 Absolute Neutrophils (1.2-6.7) k/cumm 3.49 Absolute Lymphocytes (1.2-3.4) k/cumm 1.29 Absolute Monocytes (0.11-0.7) k/cumm 0.65 Absolute Eosinophils (0.0-0.7) k/cumm 0.09 Absolute Basophils (0.0-0.2) k/cumm 0.03 PT (9.3-11.0) sec 9.7 INR (0.9-1.1) 1.0 APTT (21.0-31.4) sec 21.3 Sodium (136-145) mmol/L 142 Potassium (3.5-5.1) mmol/L 3.9 Chloride (98-107) mmol/L 103 Carbon Dioxide (21.0-32.0) mmol/L 31.7 Anion Gap (3-11) mmol/L 7.3 BUN (7-18) mg/dL 22 H Creatinine (0.70-1.30) mg/dL 1.01 Estimated GFR/1.73 m2 (mL/min/1.73m2) >= 60.00 Glucose (70-100) mg/dL 113 H Calcium (8.5-10.1) mg/dL 8.9 Magnesium (1.8-2.4) mg/dL 2.3 Total Bilirubin (0.2-1.0) mg/dL 0.4 AST (15-37) U/L 28 ALT (12-78) U/L 37 Alkaline Phosphatase (46-116) U/L 65 Troponin I (0.00-0.06) ng/mL 0.03 Total Protein (6.4-8.2) g/dL 7.7 Albumin (3.4-5.0) g/dL 3.8
[2018-07-30] MEDS: Amoxicillin 875/Clav. 125 TAB PO (21:50)
--- NOTE | 2018-07-30 23:20 | HPE_ITS ---
Date of service: 07/30/18 Time of Service: 23:17 Assessment and Plan (1) Head injury, closed, with concussion: Current visit: Yes Status: Acute monitor neurologic status overnight; treat symptoms of concussion i.e. nausea, vomting and headache. Avoid NSAID/ASA due to closed head injury, increased risk of bleeding. Will give prn reglan and zofran for nausea. treat headache w/ Tylenol or Tylenol #3. refer to ENT upon discharge and continue oral Augmentin for prevention of infection from maxillary sinus fracture. Qualifiers: Encounter type: initial encounter Loss of consciousness presence/dur ation: with LOC of unspecified duration Qualified Code(s): S06.0X9A - Concussion with loss of consciousness of unspecified duration, initial encounter (2) Facial fracture due to fall: Current visit: Yes Status: Acute as above. May also need follow up holter monitoring but sounds like probably mechanical fall rather than arrhythmia and none were seen on prolonged monitoring in the ER Qualifiers: Encounter type: initial encounter Fracture type: closed Qualified Code(s): S02.92XA - Unspecified fracture of facial bones, initial encounter for closed fracture; W19.XXXA - Unspecified fall, initial encounter History of Present Illness Chief Complaint: facial trauma Narrative: 67 yr old male brought to the ER by his nieghbor after he sustained a fall on ice between 1430 and 1500 today. Patient unsure if he lost consciousness or not and has been amnestic to the details of the fall. Patient had been with neighbors around 1430 and called his at 1500 sounding confused. She called the neighbor with whom he had just visited and had the neighbor check on the patient and bring him to the ER. The was away with a friend at a cond in [place] at the time of the patient's fall. The patient denies any feelings of dizziness or palpitations or chest pain prior to the fall and thinks that he slipped on ice in his drive. He sustained trauma to the right side of his face with ecchymosis over right inferior orbit with dried blood from his nares. He was noted to have irregular and unresponsive right pupil. However notes that he has had multiple surgeries to right eye including treatment of detached retina and confirmation with his opthalmologist confirmed that his right pupil is irregularly shaped, [address] of his head, neck and face demonstrated no acute intracranial findings, but non- displaced fractures of his right zygoma, right lateral orbital wall and anterior and medial right maxillary sinsus adrian. Xrays of his right hip and pelvis showed prior right hip arthroplasty with normal alignment and no fractures. CXR demonstrated mild diffuse pulmonary parenchymal density and haziness of left lung base, possible early interstitial lung disease. Dr. Juvencio Shepard, emergency room attending, spoke with ENT at [facility] who advised beginning Augmentin due to the fracture through the maxillary sinus and to have the patient follow up with ENT. However, because of repeated nausea and vomiting requiring multiple medications in the ER, Dr. Shepard felt it best that the pat ient be observed overnight in the hospital and given iv fluids and antiemetics and monitored due to the concussion. If worsening neurologic signs develope then it would be appropriate to repeat his CT of his head to rule out subdural bleed. According to his he is now talking normal and seems to be back to his baseline of cognition. Review of Systems Review of Systems All systems reviewed & are unremarkable except as noted in HPI and below PFSH Medical History Hyperlipidemia (Chronic) BPH (benign prostatic hyperplasia) (Chronic) Osteoarthritis, hip, bilateral (Chronic) Osteoarthritis, knee (Chronic) History of CVA (cerebrovascular accident) (Resolved) History of CVA (cerebrovascular accident) (Resolved) Surgical History H/O cystoscopy (Resolved) H/O: vasectomy (Resolved) History of bilateral knee arthroplasty (Resolved) History of detached retina repair (Resolved) History of tonsillectomy and adenoidectomy (Resolved) History of total right hip arthroplasty (Resolved) Status post removal of Zenker's diverticulum (Resolved) Arthroplasty of knee Cystoscopy Replacement of total knee joint (11/27/16) Tonsillectomy and adenoidectomy Vasectomy Family History Mother Essential hypertension Father Neoplasm Sister No problems noted. Grandfather Cancer Son No problems noted. Daughter No problems noted. Daughter No problems noted. Social History Smoking/Tobacco Use Status: Never Meds Home Medications Medication Instructions Recorded Confirmed Type acyclovir 400 mg PO BID #180 tab-cap 05/21/16 07/30/18 History difluprednate [Durezol] 1 drp OPHTHALMIC QID drp 10/03/16 07/30/18 History aspirin 325 mg PO DAILY #90 tab-cap 07/10/17 07/30/18 Rx fluoxetine [Prozac] 20 mg PO DAILY #90 tab-cap 12/12/17 07/30/18 Rx simvastatin 1 tab PO HS #90 tab-cap 12/12/17 07/30/18 Rx tamsulosin 0.4 mg capsule 0.8 mg PO HS #180 tab-cap 05/21/18 07/30/18 Rx finasteride 5 mg tablet 5 mg PO HS #90 tab-cap 06/19/18 07/30/18 Rx Allergies Allergy/AdvReac Type Severity Reaction Status Date / Time Sulfa (Sulfonamide Allergy Unknown Unverified 07/30/18 16:20 Antibiotics) Exam Const General: cooperative and ill appearing acutely Nutritional Appearance: overweight Orientation: alert, awake and oriented x3 HENMT Head: no Farooq's sign, contusion right temporal and no raccoon eyes Ears: TM's normal bilaterally General nose exam: epistaxis bilaterally dried blood present Face and sinus: ecchymosis on the right periorbital and maxilla and tenderness on the right maxilla Mouth: oral mucosae normal and oropharynx normal Teeth and gingiva: dentition normal Throat: posterior oropharynx normal Eyes Alignment and Position: alignment normal Periorbital: periorbital findings abnormal right periorbital tenderness and periorbital ecchymosis Eyelids: eyelids normal Conjunctivae: conjunctivae normal Sclera: sclerae normal Cornea: corneas normal Pupils: anisocoria (6 mm irregular and nonreactive) right pupil size greater than left, irregular on the right and not reactive on the right EOM: EOM intact bilaterally Neck Neck: full ROM, no lymphadenopathy, trachea midline, supple and other (scar over left base of anterior neck) Thyroid: thyroid normal Carotids: normal carotid upstroke Chest Chest: normal inspection of the chest and normal palpation of entire chest wall Resp Effort & Inspection: normal respiratory effort and able to speak in complete se ntences Auscultation: clear to auscultation bilaterally Cardio Jugular venous pressure: no JVD Palpation: normal PMI Rate: regular rate Rhythm: regular rhythm Heart Sounds: S1 normal, S2 normal and normal, physiologic split S2 Pulses: normal peripheral pulses GI Inspection: normal to inspection Palpation: soft and no hepatosplenomegaly Percussion: normal to percussion Auscultation: normal bowel sounds Back/Spine/Pelvis Back: no CVA tenderness Cervical Spine: normal cervical lordosis Thoracic/Lumbar Spine: thoracic and lumbar spine normal to inspection Pelvis: no pain with anterior-posterior compression Skin General skin exam: ecchymosis (right face; periorbital) Trauma: abrasion (right temporal) Neuro General: alert, awake, oriented x3, moves all extremities and no focal motor deficits Cranial Nerves: EOM intact bilaterally, no nystagmus, gag reflex normal and able to elevate shoulders bilaterally Cognition: normal cognition Speech: speech normal Motor: muscle tone normal throughout, strength 5/5 throughout and no movement abnormalities noted Sensory Exam: no sensory deficits noted Pupils: Normal pupillary reactivity/response: left, Dilated: right and Fixed/non-reactive: right (6 mm) Extrem General: normal to inspection, full ROM, normal capillary refill, no joint enlargement, no clubbing, cyanosis or edema and no calf tenderness Psych Appearance: grossly normal and well kempt Mental Status: mental status grossly normal Speech and Movement: speech and movement normal Mood: congruent mood Affect: normal affect Attitude: cooperative Thought Process: normal Thought Content: normal Insight: insight good Judgment: judgment good Results Imaging Additional studies: Noncontrast CT scan of the head and cervical spine and maxillofacial bones: FINDINGS: Brain: Mild age-related involutional changes. No hemorrhage, mass or other acute findings. Ventricles: Normal. No ventriculomegaly. Bones/joints: Normal. No acute fracture. Sinuses: An air-fluid level is present in the maxillary sinus. Please see the facial bone CT report. Mastoid air cells: Normal as visualized. No mastoid effusion. Orbits: Postsurgical changes of the right globe. Soft tissues: Normal. IMPRESSION: No acute intracranial findings. FINDINGS: Orbits: No acute intraorbital abnormality. Postsurgical changes of the right globe. Sinuses: Right maxillary sinus air fluid level suggestive of hemorrhage given the fractures. Bones/joints: There is a nondisplaced right zygomatic fracture with minimally displaced fracture of the right lateral orbital wall. A nondisplaced fracture is seen to involve the anterior right maxillary sinus with extension into the adjacent nasal cavity involving the medial right maxillary sinus wall. No significant displacement. Nasal septal deviation is present. Soft tissues: No significant facial soft tissue swelling. IMPRESSION: Nondisplaced fractures involving the right zygoma, right lateral orbital wall, anterior and medial right maxillary sinus adrian. FINDINGS: Vertebrae: No acute fracture. Normal alignment. Discs/Spinal canal/Neural foramina: Moderate degenerative changes without severe canal stenosis. Soft tissues: Unremarkable. Lungs: Lung apices are normal. IMPRESSION: No acute findings. Dictated and Authenticated by: Timothy Diaz MD. Labs : 07/30/18 16:50 07/30/18 16:50 Laboratory Results - last 24 hr 07/30/18 07/30/18 07/30/18 16:50 16:50 16:50 WBC 5.55 RBC 4.76 Hgb 14.8 Hct 43.7 MCV 91.8 MCH 31.1 MCHC 33.9 RDW 13.1 Plt Count 197 MPV 8.6 Immature Gran % 0.0 Neutrophils % 63.0 Lymphocytes % 23.2 Monocytes % 11.7 Eosinophils % 1.6 Basophils % 0.5 Absolute Neutrophils 3.49 Absolute Lymphocytes 1.29 Absolute Monocytes 0.65 Absolute Eosinophils 0.09 Absolute Basophils 0.03 PT 9.7 INR 1.0 APTT 21.3 Sodium 142 Potassium 3.9 Chloride 103 Carbon Dioxide 31.7 Anion Gap 7.3 BUN 22 H Creatinine 1.01 Estimated GFR/1.73 m2 >= 60.00 Glucose 113 H Calcium 8.9 Magnesium 2.3 Total Bilirubin 0.4 AST 28 ALT 37 Alkaline Phosphatase 65 Troponin I 0.03 Total Protein 7.7 Albumin 3.8 Last Vital Signs Temp 37 C 07/30/18 22:49 Pulse 68 07/30/18 22:49 Resp 83 H 07/30/18 22:49 BP 132/58 L 07/30/18 22:49 Pulse Ox 94 L 07/30/18 22:49
--- NOTE | 2018-07-30 23:32 | NUR.NOTE ---
Patient was brought to the unit from the ER accompanied by the nurse, and . The patient and his gave history of patient falling in the drive way at home. They are uncertain if he slide on the ice. On assessment pt state he is dizzy and having a very mild headache 1/10 at the moment, he denies any chest pain. On examination male in no CP distress at this time, utilizing 2L oxygen via nasal canula. Right eye is non accommodative to light due to patient previous history of retinal defect. Left eye accommodative. Chest clear throughout on the left side but diminishes on the right side. Abdomen soft and non-tender when palpated with active bowel sounds. No abnormalities noted to the lower extremities and good pedal pulses felt. 18G noted to the right AC. Patient placed in bed with the upper rails elevated for safety, bed alarms
[2018-07-31] VITALS (11 sets, daily range): BP systolic 115–144; BP diastolic 70–78; PULSE 57–80; RESP 18–19; TEMP 36.7–37.3; O2SAT 90–98
[2018-07-31] MEDS: Ondansetron 4 MG/2 ML VIAL IVP (01:09)
[2018-07-31] MEDS: Metoclopramide 10 MG/2 ML VIAL IVP (01:10)
[2018-07-31] MEDS: Normal Saline Flush 10 ML SYR IVP (01:10)
[2018-07-31] MEDS: Normal Saline 1,000 ML 85 ML IV ×2 (01:20→13:24)
[2018-07-31] MEDS: Amoxicillin 875/Clav. 125 TAB PO ×2 (08:48→20:24)
[2018-07-31] MEDS: Acetaminophen 325 MG TAB PO ×3 (08:59→23:18)
--- NOTE | 2018-07-31 12:13 | PHARADMIT ---
Admission Pharmacy Clinical Review Concussion, Facial, orbit fracture, rib bruising from fall on ice Code Status full Current Weight Wgt- 107.1 kg Renally Cleared and Narrow Therapeutic Index Meds CrCl~ 83mL/min Meds-OK QTc Value / Action Taken QTc-451 na BP Control, Fever BP- 129/75 Tmax- 37.0C Electrolytes reviewed Na- 142 K+3.9 Mag-2.3 DVT Prophylaxis none ( head trauma (??Bleed) Opiate Usage / Scheduled Bowel Regimen Ordered Yes Yes Plt/SCr for Heparin / Enoxaparin Plts-197 SCr-1.01 INR for Warfarin inr-1.1 H/H stable, WBC/Bands H&H- 14.8/43.7 WBC- 5.55 Antibiotic appropriateness Augmentin Cultures and Sensitivities none Surgical ABX d/c within 24 hr na DM control / Insulin Dosing BG- 113 Heart Failure (Check EF%) (RICHARD's, B-Block, Diuretics) none IV to PO Switch no Home Meds Reviewed Yes Home Meds Not Ordered Acyclovir, ASA, Finaseride, Prozac, Zoocor, Flomax, Durezol eye drops Comments
--- NOTE | 2018-07-31 15:20 | MERGE_ITS ---
*[facility]* *[facility]* [address] [place] [address] Date of study: 07/31/2018 Transthoracic Echocardiography M-mode, complete 2D, complete spectral Doppler, and color Doppler *STUDY CONCLUSIONS* Summary: 1. Left ventricle: The cavity size was normal. Systolic function was normal. The estimated ejection fraction was 60-65%. There was no evidence of elevated ventricular filling pressure by Doppler parameters. 2. Aortic valve: There was very mild stenosis. Peak velocity (S): 1.9m/sec. Mean gradient (S): 7.4mm Hg. VTI ratio of LVOT to aortic valve: 0.67. Valve area (VTI): 1.8cm^2. 3. Mitral valve: There was mild regurgitation. 4. Right ventricle: The cavity size was normal. Wall thickness was normal. Systolic function was normal. 5. Pulmonary arteries: Pulmonary systolic pressure was >= 30mm Hg. 6. Inferior vena cava: Poorly visualized. *PATIENT PRESENTATION* Height: 188cm ((74in) ) S/D Pressure: 124 / 70 Weight: 107kg ((235.5lb) ) BSA: 2.39m^2 Test start time: 03:20 PM. Test stop time: 04:20 PM. PERFORMING Unknown CONSULTING Tiago Demarco SIDE GUIDER Sera Burnett [facility] ORDERING Kogan, Yelena A REFERRING Kogan, Yelena A *PROCEDURE DATA* Procedure information: This study was interpreted by [facility]. Pertinent images and digital data are archived for permanent storage and are available for subsequent review. Comparison was made to the study of 09/18/2016. Study status: Routine. Transthoracic echocardiography. M-mode, complete 2D, complete spectral Doppler, and color Doppler. A Transthoracic Echocardiogram was performed. Scanning was performed from the parasternal, apical, subcostal, and suprasternal notch acoustic windows. Images were obtained using an [id number] cardiac ultrasound machine. Image quality was poor. Study completion: The patient tolerated the procedure well. History: PMH: Syncope. *CARDIAC ANATOMY* Left ventricle: The cavity size was normal. Systolic function was normal. The estimated ejection fraction was 60-65%. There was no evidence of elevated ventricular filling pressure by Doppler parameters. Aortic valve: Doppler: There was very mild stenosis. There was no regurgitation. VTI ratio of LVOT to aortic valve: 0.67. Valve area (VTI): 1.8cm^2. Indexed valve area (VTI): 0.8cm^2/m^2. Peak velocity ratio of LVOT to aortic valve: 0.63. Valve area (Vmax): 1.7cm^2. Indexed valve area (Vmax): 0.7cm^2/m^2. Mean velocity ratio of LVOT to aortic valve: 0.63. Valve area (Vmean): 1.7cm^2. Indexed valve area (Vmean): 0.7cm^2/m^2. Mean gradient (S): 7.4mm Hg. Peak gradient (S): 15mm Hg. Aorta: Aortic root: The aortic root was normal in size. Mitral valve: Doppler: There was no evidence for stenosis. There was mild regurgitation. Valve area by pressure half-time: 4cm^2. Indexed valve area by pressure half-time: 1.7cm^2/m^2. Peak gradient (D): 3.5mm Hg. Left atrium: Poorly visualized. Atrial septum: Poorly visualized. Right ventricle: The cavity size was normal. Wall thickness was normal. Systolic function was normal. Pulmonic valve: Doppler: There was no evidence for stenosis. There was no significant regurgitation. Tricuspid valve: Poorly visualized. Pulmonary artery: Poorly visualized. Pulmonary systolic pressure was >= 30mm Hg. Right atrium: Poorly visualized. Pericardium: There was no significant pericardial effusion. Systemic veins: Inferior vena cava: Poorly visualized. Measurements Left ventricle Value 09/18/2016 Reference LV ID, ED, PLAX 5.6 cm 5.5 3.5 - 6.0 LV ID, ES, PLAX 3.7 cm 3.8 2.1 - 4.0 LV PW thickness, ED, PLAX 1.1 cm 1.6 LV e', lateral 0.097 m/sec LV E/e', lateral 10 LV e', medial 0.088 m/sec LV E/e', medial 11 LV e', average 0.092 m/sec LV E/e', average 10 Ventricular septum Value 09/18/2016 Reference IVS thickness, ED, PLAX 1.1 cm 1.4 LVOT Value 09/18/2016 Reference LVOT ID, A-P 1.9 cm 2.3 LVOT area 2.7 cm^2 4 LVOT peak velocity, S 1.23 m/sec 1.14 LVOT mean velocity, S 0.8 m/sec LVOT VTI, S 24.7 cm 25.3 LVOT peak gradient, S 6 mm Hg 5.2 LVOT mean gradient, S 3 mm Hg 2.7 Stroke volume (SV), LVOT 67 ml DP Stroke index (SV/bsa), 28 ml/m^2 LVOT DP Aortic valve Value 09/18/2016 Reference Aortic valve peak 1.9 m/sec velocity, S Aortic valve mean 1.27 m/sec velocity, S Aortic valve VTI, S 37.0 cm Aortic mean gradient, S 7.4 mm Hg 5 Aortic peak gradient, S 15 mm Hg 16 VTI ratio, LVOT/AV 0.67 0.7 Aortic valve area, VTI 1.8 cm^2 Velocity ratio, peak, 0.63 0.84 LVOT/AV Aortic valve area, peak 1.7 cm^2 velocity Velocity ratio, mean, 0.63 LVOT/AV Aortic valve area, mean 1.7 cm^2 velocity Aortic valve area/bsa, 0.7 cm^2/m^2 mean velocity Aorta Value 09/18/2016 Reference Aortic root ID, ED 2.9 cm 3.2 Left atrium Value 09/18/2016 Reference LA ID, A-P, ES 4.3 cm LA ID/bsa, A-P 1.8 cm/m^2 <=2.2 LA area, ES, A4C 21.4 cm^2 17 8.8 - 23.4 LA area, ES, A2C 20 cm^2 LA volume, ES, 2-p 61 ml LA volume/bsa, ES, 2-p 25 ml/m^2 LA/aortic root ratio 1.49 Mitral valve Value 09/18/2016 Reference Mitral E-wave peak 0.93 m/sec 0.56 velocity Mitral A-wave peak 0.87 m/sec 1 velocity Mitral deceleration time 191 ms 150 - 230 Mitral pressure half-time 55 ms 105 Mitral peak gradient, D 3.5 mm Hg Mitral E/A ratio, peak 1.07 0.56 Mitral valve area, PHT, DP 4 cm^2 Tricuspid valve Value 09/18/2016 Reference Tricuspid regurg peak 2.9 m/sec 2.3 velocity Tricuspid peak RV-RA 33.7 mm Hg 20.8 gradient Legend: (L) and (H) amado values outside specified reference range. I have personally reviewed the images and have reviewed and edited the reported findings. Electronically signed by Ernst Corbett MD 07/31/2018 17:55
--- NOTE | 2018-07-31 15:38 | CHAPLAIN ---
Adin's and other friends/relatives were with him when I stopped in this morning. I introduced myself, explained my role and offered support. Adin said he is feeling much better than yesterday.
[2018-07-31 16:29] LABS: Troponin I 0.02 ng/mL (0.00-0.06)
--- NOTE | 2018-07-31 19:11 | DI.CT_ITS ---
SYMPTOM/DIAGNOSIS: CONCUSSION, HEAD TRAUMA, R/O HEAD BLEED NONCONTRAST HEAD CT: Comparison is made with 30 July 2018. No intracranial hemorrhage, or skull fracture is seen. The ventricles remain normal in size. Mild atrophy is again noted. There has been previous surgery on the right globe. There is mild sinus disease. IMPRESSION: No acute abnormality.
--- NOTE | 2018-07-31 19:33 | DI.VRAD_ITS ---
EXAM: CT Head Without Contrast EXAM DATE/TIME: 07/31/2018 6:27 PM CLINICAL HISTORY: 67 years old, male; Injury or trauma; Injury history: Concussion, head trauma, R/O head blled TECHNIQUE: Axial computed tomography images of the head/brain without contrast. Coronal and sagittal reformatted images were created and reviewed. COMPARISON: CT Head^HEAD ROUTINE (Adult) 09/17/2016 11:08 AM FINDINGS: Brain: No acute intracranial hemorrhage. There is mild diffuse heterogeneity of the white matter attenuation, consistent with chronic white matter ischemic changes. Mild cerebral atrophy Ventricles: Normal. No ventriculomegaly. Bones/joints: Normal. No acute fracture. Sinuses: Mucosal thickening in the ethmoid sinuses, right maxillary sinus, and sphenoid sinuses may represent sinusitis Mastoid air cells: Normal as visualized. No mastoid effusion. Orbits: Surgery of the right globe Soft tissues: Normal. IMPRESSION: No acute intracranial hemorrhage. Dictated and Authenticated by: Susanna Escobar MD. Ordering:ARIELLE Santo MD
--- NOTE | 2018-07-31 20:17 | PDOC.CMIN ---
Care Management Initial Assess REASON FOR HOSPITALIZATION:: Concussion (fall on ice) PAST MEDICAL HISTORY/PAST SURGICAL HISTORY:: BPH, CVA, Hyperlipidemia, Ostarthritis, bilat TKA, cystoscopy, vasectomy, detached retina repair, T&A, R CRISTAL, removal of Zenker's diverticulum PREVIOUS FUNCTIONAL STATUS/SOCIAL/FAMILY SUPPORTS:: Adin resides with his , Bud Quinonez in [place], [place]. They have several adult children. 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 He states it was a good job and shares that since retiring he has struggled with multiple health issues. He is independent with ADLs in the community. He does not remember falling or calling his from his cell phone afterward. CURRENT FUNCTIONAL STATUS:: Adin was pleasant in interaction and fully engaged with this press writer. His and friend were at his bedside. They used good humor when answering questions and Adin shared he was feeling better at this time and was only curious about discharge timing; notified MD. ADVANCE DIRECTIVES:: On file at [facility], Bud as agent, Evelio as alternate. Has patient been provided with information about the portal?: Yes Did the patient sign up for the portal?: Yes CODE STATUS:: Full Code INSURANCE COVERAGE / FINANCIAL ISSUES:: Medicare, BC/BS CURRENT HOME/COMMUNITY SERVICES/EQUIPMENT:: Adin shares having past equipment, but none at this time. PRIMARY CARE PHYSICIAN:: Dr. Tiago Demarco POTENTIAL DISCHARGE NEEDS:: Follow up appointment. PATIENT/FAMILY EDUCATION NEEDS:: Discharge instructions, activity limitations. ANTICIPATED BARRIERS TO DISCHARGE:: None identified. TRANSPORTATION:: Via private vehicle with his . PLAN:: Adin will continue to be monitored at this time. Anticipate he will discharge home with no additional services and follow up with his PCP. He will transport via private vehicle.
--- NOTE | 2018-07-31 20:32 | INITIAL_ITS ---
Care Management Initial Assess REASON FOR HOSPITALIZATION:: Concussion (fall on ice) PAST MEDICAL HISTORY/PAST SURGICAL HISTORY:: BPH, CVA, Hyperlipidemia, Ostarthritis, bilat TKA, cystoscopy, vasectomy, detached retina repair, T&A, R CRISTAL, removal of Zenker's diverticulum PREVIOUS FUNCTIONAL STATUS/SOCIAL/FAMILY SUPPORTS:: Adin resides with his , Bud Quinonez in [place], [place]. They have several adult children. 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 He states it was a good job and shares that since retiring he has struggled with multiple health issues. He is independent with ADLs in the community. He does not remember falling or calling his from his cell phone afterward. CURRENT FUNCTIONAL STATUS:: Adin was pleasant in interaction and fully engaged with this publications writer. His and friend were at his bedside. They used good humor when answering questions and Adin shared he was feeling better at this time and was only curious about discharge timing; notified MD. ADVANCE DIRECTIVES:: On file at [facility], Bud as agent, Evelio as alternate. Has patient been provided with information about the portal?: Yes Did the patient sign up for the portal?: Yes CODE STATUS:: Full Code INSURANCE COVERAGE / FINANCIAL ISSUES:: Medicare, BC/BS CURRENT HOME/COMMUNITY SERVICES/EQUIPMENT:: Adin shares having past equipment, but none at this time. PRIMARY CARE PHYSICIAN:: Dr. Tiago Demarco POTENTIAL DISCHARGE NEEDS:: Follow up appointment. PATIENT/FAMILY EDUCATION NEEDS:: Discharge instructions, activity limitations. ANTICIPATED BARRIERS TO DISCHARGE:: None identified. TRANSPORTATION:: Via private vehicle with his . PLAN:: Adin will continue to be monitored at this time. Anticipate he will discharge home with no additional services and follow up with his PCP. He will transport via private vehicle.
--- NOTE | 2018-07-31 21:33 | W.PM.PROGNOT ---
Date of Service Date of service: 07/31/18 Time of Service: 15:00 Assessment and Plan (1) Unwitnessed fall: Current visit: Yes Status: Acute Will monitor on tele overnight. Echo done - of note, there is some degree of pulmonary hypertension, but no other significant abnormalities. Troponin negative. Would recommend outpatient carotid ultrasound to complete a possible syncope workup and to monitor on tele overnight. (2) Postconcussive syndrome: Current visit: Yes Status: Acute Already improving. Can likely be discharged home tomorrow. (3) Facial fracture due to fall: Current visit: Yes Status: Acute Follow up with ENT/OMFS. Continue prophylactic augmentin (maxillary fx). Soft diet. Qualifiers: Encounter type: initial encounter Fracture type: closed Fracture healing: Qualified Code(s): S02.92XA - Unspecified fracture of facial bones, initial encounter for closed fracture; W19.XXXA - Unspecified fall, initial encounter (4) Head injury, closed, with concussion: Current visit: Yes Status: Acute Improving. Continue neuro checks. Can likely be discharged home tomorrow. Repeat CT head is negative for a bleed. Qualifiers: Encounter type: initial encounter Loss of consciousness presence/duration: with LOC of unspecified duration Qualified Code(s): S06.0X9A - Concussion with loss of consciousness of unspecified duration, initial encounter (5) BPH (benign prostatic hyperplasia): Current visit: No Status: Chronic Continue flomax. (6) Hyperlipidemia: Current visit: No Status: Chronic F/u as outpatient (7) Osteoarthritis, knee: Current visit: No Status: Chronic Avoid NSAIDs (8) Osteoarthritis, hip, bilateral: Current visit: No Status: Chronic Avoid NSAIDs Subjective Interval history since last seen: Feels a lot better today and actually requests to go home. However, then he tells me that he does not remember the circumstances of his fall, and his fall was unwitnessed. He denies pain, dizziness, chest pressure, shortness of breath, nausea, vomiting (n/v overnight, but now resolved). Exam Narrative Exam Narrative: General: very pleasant male, laying comfortably in bed, in a good mood, conversant/appropriate; A&Ox3 HEENT: EOMI with slight horizontal nystagmus B; MMM; ecchymoses R side of the face Heart: RRR, no m/r/g Lungs: CTAB GI: abdomen is soft, nontender, nondistended Extremities: no e/c/c BLE's Objective Objective Clinical Data: Vital Signs Temperature 37.3 C 07/31/18 19:00 Temperature Source Tympanic 07/31/18 19:00 Pulse 64 07/31/18 19:00 Pulse Rhythm Regular 07/31/18 08:50 Respiratory Rate 18 07/31/18 19:00 Respiratory Effort Non-Labored 07/31/18 08:50 Respiratory Depth Normal 07/31/18 08:50 Respiratory Pattern Normal 07/31/18 08:50 Blood Pressure 136/76 07/31/18 19:00 Blood Pressure Mean 74 07/30/18 22:21 Blood Pressure Position Supine 07/30/18 16:18 Pulse Oximetry 92 L 07/31/18 19:00 Oxygen Delivery Method Room Air 07/31/18 19:00 Oxygen Flow Rate 0 07/31/18 19:00 Pain Level 1 07/31/18 17:24 Comment 07/30/18 23:04 Intake & Output 07/30/18 07/31/18 07/31/18 23:59 11:59 23:59 Intake Total 1000 / 1000 386 / 2464.500 2078.500 / 2464.500 Output Total 475 / 475 Balance 1000 / 1000 -89 / 1115.470 3188.500 / 1989.500 Weight 108.5 kg 107.1 kg Intake: IV 1000 / 1000 26 / 5938.998 3649.500 / 1504.500 Oral 360 / 960 600 / 960 Output: Urine 475 / 475 Other: Urine Color Yellow Urine Appearance Clear Urine Odor Normal Voiding Methods Urinal Toilet Laboratory Results WBC 5.55 k/cumm (4.4-10.8) 07/30/18 16:50 RBC 4.76 m/cumm (4.50-6.00) 07/30/18 16:50 Hgb 14.8 g/dL (13.5-17.5) 07/30/18 16:50 Hct 43.7 % (40.0-50.0) 07/30/18 16:50 MCV 91.8 fL (80-95) 07/30/18 16:50 MCH 31.1 pg (27.0-33.0) 07/30/18 16:50 MCHC 33.9 g/dL (32.0-36.0) 07/30/18 16:50 RDW 13.1 % (11.8-14.1) 07/30/18 16:50 Plt Count 197 x1000/uL (130-400) 07/30/18 16:50 MPV 8.6 fL (8.0-11.0) 07/30/18 16:50 Immature Gran % 0.0 07/30/18 16:50 Neutrophils % 63.0 07/30/18 16:50 Lymphocytes % 23.2 07/30/18 16:50 Monocytes % 11.7 07/30/18 16:50 Eosinophils % 1.6 07/30/18 16:50 Basophils % 0.5 07/30/18 16:50 Absolute Neutrophils 3.49 k/cumm (1.2-6.7) 07/30/18 16:50 Absolute Lymphocytes 1.29 k/cumm (1.2-3.4) 07/30/18 16:50 Absolute Monocytes 0.65 k/cumm (0.11-0.7) 07/30/18 16:50 Absolute Eosinophils 0.09 k/cumm (0.0-0.7) 07/30/18 16:50 Absolute Basophils 0.03 k/cumm (0.0-0.2) 07/30/18 16:50 PT 9.7 sec (9.3-11.0) 07/30/18 16:50 INR 1.0 (0.9-1.1) 07/30/18 16:50 APTT 21.3 sec (21.0-31.4) 07/30/18 16:50 Sodium 142 mmol/L (136-145) 07/30/18 16:50 Potassium 3.9 mmol/L (3.5-5.1) 07/30/18 16:50 Chloride 103 mmol/L (98-107) 07/30/18 16:50 Carbon Dioxide 31.7 mmol/L (21.0-32.0) 07/30/18 16:50 Anion Gap 7.3 mmol/L (3-11) 07/30/18 16:50 BUN 22 mg/dL (7-18) H 07/30/18 16:50 Creatinine 1.01 mg/dL (0.70-1.30) 07/30/18 16:50 Estimated GFR/1.73 m2 >= 60.00 (mL/min/1.73m2) 07/30/18 16:50 Glucose 113 mg/dL (70-100) H 07/30/18 16:50 Calcium 8.9 mg/dL (8.5-10.1) 07/30/18 16:50 Magnesium 2.3 mg/dL (1.8-2.4) 07/30/18 16:50 Total Bilirubin 0.4 mg/dL (0.2-1.0) 07/30/18 16:50 AST 28 U/L (15-37) 07/30/18 16:50 ALT 37 U/L (12-78) 07/30/18 16:50 Alkaline Phosphatase 65 U/L (46-116) 07/30/18 16:50 Troponin I 0.02 ng/mL (0.00-0.06) 07/31/18 16:05 Total Protein 7.7 g/dL (6.4-8.2) 07/30/18 16:50 Albumin 3.8 g/dL (3.4-5.0) 07/30/18 16:50 CT head: No acute intracranial hemorrhage.
--- NOTE | 2018-07-31 22:55 | NUR.NOTE ---
Nursing Note: Report received from off-going nurse, patient is currently sitting up in bed with no report of pain or discomfort at this time, the bed is in the low and locked position, side rails up x2, call light within reach.
[2018-07-31] MEDS: Normal Saline 1,000 ML 125 ML IV (23:14)
[2018-08-01] VITALS (14 sets, daily range): BP systolic 125–163; BP diastolic 71–94; PULSE 50–76; RESP 17–20; TEMP 36.3–37.5; O2SAT 90–95
[2018-08-01 06:38] LABS: Abs Immature Grans 0.01 k/cumm (0.0-0.09); Absolute Basophil Count 0.02 k/cumm (0.0-0.2); Absolute Eosinophil Count 0.09 k/cumm (0.0-0.7); Absolute Lymphocyte Count 1.47 k/cumm (1.2-3.4); Absolute Monocyte Count 0.49 k/cumm (0.11-0.7); Basophils % 0.4; Eosinophils % 1.8; HCT 40.7 % (40.0-50.0); HGB 13.6 g/dL (13.5-17.5); Immature Grans % 0.2; Lymphocytes % 28.9; Mean Corp. HGB Concentration 33.4 g/dL (32.0-36.0); Mean Corpuscular Volume 92.7 fL (80-95); Mean Platelet Volume 8.7 fL (8.0-11.0); Monocytes % 9.6; Neutrophils % 59.1; Platelet Count 169 x1000/uL (130-400); RBC 4.39 m/cumm (4.50-6.00); RBC Distribution Width 12.9 % (11.8-14.1); White Blood Cell Count 5.08 k/cumm (4.4-10.8)
[2018-08-01 06:46] LABS: Anion Gap 3.8 mmol/L (3-11); BUN 15 mg/dL (7-18); CO2 30.2 mmol/L (21.0-32.0); CREATININE 0.81 mg/dL (0.70-1.30); Chloride 106 mmol/L (98-107); Glucose 103 mg/dL (70-100); Magnesium 1.9 mg/dL (1.8-2.4); Potassium 4.1 mmol/L (3.5-5.1); Sodium 140 mmol/L (136-145)
--- NOTE | 2018-08-01 06:51 | NUR.NOTE ---
Nursing Note: Called to bedside by patient, small amount of blood tinged sputum in tissue. Vitals taken and are stable, will report to day shift nurse.
[2018-08-01] MEDS: Normal Saline 1,000 ML 125 ML IV ×2 (07:16→15:18)
[2018-08-01] MEDS: Ondansetron 4 MG/2 ML VIAL IVP ×2 (08:01→16:51)
[2018-08-01] MEDS: Polyethylene Glycol 3350 17 GM PACKET PO (08:02)
[2018-08-01] MEDS: Amoxicillin 875/Clav. 125 TAB PO ×2 (09:53→21:38)
[2018-08-01] MEDS: Milk of Magnesia 30 ML CUP PO (09:53)
[2018-08-01] MEDS: Docusate Sodium 100 MG CAP PO ×2 (09:53→17:10)
[2018-08-01] MEDS: Normal Saline Flush 10 ML SYR IVP (16:52)
--- NOTE | 2018-08-01 17:26 | PDOC.CMPRO ---
- If Service Date Differs Date of service: 08/01/18 Time of Service: 17:26 Care Management Progress Note S/O: CM met with Adin and his spouse at the bedside. He is alert he complains of little sleep and constipation. CM educated Adin on post concussion and treatment related to supportive care. CM reviewed plan for discharged including self management after discharge. Plan will be for Adin to spend an additional night for nausea, pain control and symptom management. Spouse will plan to be here around 0900 to meet with provider on Friday. A: Adin is a 67 year old male admitted after a fall on the ice resulting in a concussion, and facial fracture P: Adin will continue to be monitored at this time. He is being treated for nausea, and headache. He remains on telemetry. Anticipate he will discharge home with no additional services and follow up with his PCP. He will transport via private vehicle.
[2018-08-01] MEDS: Acetaminophen 325 MG TAB PO (21:38)
--- NOTE | 2018-08-01 21:54 | PGE_ITS ---
Date of Service Date of service: 08/01/18 Time of Service: 21:40 Assessment and Plan (1) Unwitnessed fall: Current visit: Yes Status: Acute No evidence of abnormalities by tele overnight, and ECHO essentially normal. Cardiac Biomarkers checked and negative. Will recommend carotid ultrasound, potentially as an outpatient to complete work-up for possible syncope - however, potentially with fall on the ice and post-concussive symptoms that include loss of memory of event. Monitor. (2) Postconcussive syndrome: Current visit: Yes Status: Acute Noted. However, with continued nausea - given facial fractures will monitor an additional day to ensure symptoms do not worsen prior to discharge. (3) Facial fracture due to fall: Current visit: Yes Status: Acute Follow-up ENT as outpatient. Continue Augmentin, modified diet. Qualifiers: Encounter type: initial encounter Fracture type: closed Fracture healing: Qualified Code(s): S02.92XA - Unspecified fracture of facial bones, initial encounter for closed fracture; W19.XXXA - Unspecified fall, initial encounter (4) Head injury, closed, with concussion: Current visit: Yes Status: Acute Repeat Head CT negative for IC Hemorrhage. Qualifiers: Encounter type: initial encounter Loss of consciousness presence/duration: with LOC of unspecified duration Qualified Code(s): S06.0X9A - Concussion with loss of consciousness of unspecified duration, initial encounter (5) Hyperlipidemia: Current visit: No Status: Chronic Continue statin therapy. Subjective Interval history since last seen: 67 year old man with a past history significant for dyslipidemia, BPH, and OA, and potential prior TIA in 2017, admitted from [facility] Emergency Department on 07/30 with a diagnosis of facial fracture. Mr. Mccracken was brought in to the ED by his nieghbor after presumably sustaining a fall on the ice. Patient was actually unsure regarding potential transient loss of consciousness as he has had no memory of the event. The fall caused a subsequent trauma to the right side of his face with an initially noted irregular and unresponsive right pupil. 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 Imaging with a CT of his head, neck and face demonstrated no acute intracranial findings, but a non-displaced fracture of his right zygoma, right lateral orbital wall and anterior and medial right maxillary sinsus adrian were shown. ENT at [facility] was initially consulted and advised beginning Augmentin due to the fracture through the maxillary sinus, and to have the patient follow up with ENT as an outpatient. However, because of continued nausea and vomiting the patient was admitted. Since his admission a repeat CT was obtained on 07/31 showing no acute IC hemorrhage, including a SDH. Patient appears improved overall, but with continued nausea this morning. No other events reported. Remains afebrile. Exam Narrative Exam Narrative: General: Patient appears comfortable, AAOX3, NAD Neck: Supple Skin: Noted Ecchymosis overlying the right eye and upper face CV: Regular, nontachycardic, S1S2, No rubs, murmurs, or gallops. Pulmonary: Clear to auscultation bilaterally, no crackles, wheezing, or rhonchi Abdomen: + Bowel Sounds, soft, nontender, nondistended Vascular: No lower extremity edema Neurologic: CN II-XII grossly intact. No focal deficits. Psych: Normal mood and affect. Objective Objective Clinical Data: Abnormal lab results 08/01/18 08/01/18 Range/Units 06:10 06:10 RBC 4.39 L (4.50-6.00) m/cumm Glucose 103 H (70-100) mg/dL Calcium 8.0 L (8.5-10.1) mg/dL Vital Signs Temperature 36.6 C 08/01/18 15:16 Temperature Source Tympanic 08/01/18 15:16 Pulse 51 L 08/01/18 15:22 Pulse Rhythm Regular 08/01/18 08:20 Respiratory Rate 18 08/01/18 15:16 Respiratory Effort Non-Labored 08/01/18 08:20 Respiratory Depth Normal 08/01/18 08:20 Respiratory Pattern Normal 08/01/18 08:20 Blood Pressure 125/74 08/01/18 15:16 Blood Pressure Mean 74 07/30/18 22:21 Blood Pressure Position Supine 07/30/18 16:18 Pulse Oximetry 93 L 08/01/18 15:16 Oxygen Delivery Method Room Air 08/01/18 15:16 Oxygen Flow Rate 0 08/01/18 15:16 Pain Level 4 08/01/18 08:01 Comment 07/30/18 23:04 Intake & Output 07/31/18 08/01/18 08/01/18 23:59 11:59 23:59 Intake Total 207.500 / 2464.500 1300 / 3087.5 1787.5 / 3087.5 Output Total 900 / 900 Balance 8.500 / 1989.500 400 / 2187.5 1787.5 / 2187.5 Weight 108.7 kg Intake: IV 1478.500 / 0662.689 5055 / 2787.5 1787.5 / 2787.5 Oral 600 / 960 300 / 300 Output: Urine 900 / 900 Other: Urine Color Yellow Urine Appearance Clear Clear Urine Odor Normal Comment pt voiding independently in toilet Voiding Methods Toilet Urinal Toilet Laboratory Results WBC 5.08 k/cumm (4.4-10.8) 08/01/18 06:10 RBC 4.39 m/cumm (4.50-6.00) L 08/01/18 06:10 Hgb 13.6 g/dL (13.5-17.5) 08/01/18 06:10 Hct 40.7 % (40.0-50.0) 08/01/18 06:10 MCV 92.7 fL (80-95) 08/01/18 06:10 MCH 31.0 pg (27.0-33.0) 08/01/18 06:10 MCHC 33.4 g/dL (32.0-36.0) 08/01/18 06:10 RDW 12.9 % (11.8-14.1) 08/01/18 06:10 Plt Count 169 x1000/uL (130-400) 08/01/18 06:10 MPV 8.7 fL (8.0-11.0) 08/01/18 06:10 Immature Gran % 0.2 08/01/18 06:10 Neutrophils % 59.1 08/01/18 06:10 Lymphocytes % 28.9 08/01/18 06:10 Monocytes % 9.6 08/01/18 06:10 Eosinophils % 1.8 08/01/18 06:10 Basophils % 0.4 08/01/18 06:10 Absolute Neutrophils 3.00 k/cumm (1.2-6.7) 08/01/18 06:10 Absolute Lymphocytes 1.47 k/cumm (1.2-3.4) 08/01/18 06:10 Absolute Monocytes 0.49 k/cumm (0.11-0.7) 08/01/18 06:10 Absolute Eosinophils 0.09 k/cumm (0.0-0.7) 08/01/18 06:10 Absolute Basophils 0.02 k/cumm (0.0-0.2) 08/01/18 06:10 PT 9.7 sec (9.3-11.0) 07/30/18 16:50 INR 1.0 (0.9-1.1) 07/30/18 16:50 APTT 21.3 sec (21.0-31.4) 07/30/18 16:50 Sodium 140 mmol/L (136-145) 08/01/18 06:10 Potassium 4.1 mmol/L (3.5-5.1) 08/01/18 06:10 Chloride 106 mmol/L (98-107) 08/01/18 06:10 Carbon Dioxide 30.2 mmol/L (21.0-32.0) 08/01/18 06:10 Anion Gap 3.8 mmol/L (3-11) 08/01/18 06:10 BUN 15 mg/dL (7-18) D 08/01/18 06:10 Creatinine 0.81 mg/dL (0.70-1.30) 08/01/18 06:10 Estimated GFR/1.73 m2 >= 60.00 (mL/min/1.73m2) 08/01/18 06:10 Glucose 103 mg/dL (70-100) H 08/01/18 06:10 Calcium 8.0 mg/dL (8.5-10.1) L 08/01/18 06:10 Magnesium 1.9 mg/dL (1.8-2.4) 08/01/18 06:10 Total Bilirubin 0.4 mg/dL (0.2-1.0) 07/30/18 16:50 AST 28 U/L (15-37) 07/30/18 16:50 ALT 37 U/L (12-78) 07/30/18 16:50 Alkaline Phosphatase 65 U/L (46-116) 07/30/18 16:50 Troponin I 0.02 ng/mL (0.00-0.06) 07/31/18 16:05 Total Protein 7.7 g/dL (6.4-8.2) 07/30/18 16:50 Albumin 3.8 g/dL (3.4-5.0) 07/30/18 16:50
[2018-08-02] MEDS: Magnesium Citrate 300 ML BTL PO (07:01)
[2018-08-02 07:16] VITALS: PULSE 53
[2018-08-02 07:25] VITALS: BP 134/83; PULSE 54; RESP 20; TEMP 36.9; O2SAT 92
[2018-08-02] MEDS: Amoxicillin 875/Clav. 125 TAB PO (09:18)
[2018-08-02] MEDS: Tamsulosin 0.4 MG CAPCR PO (09:18)
--- NOTE | 2018-08-02 13:55 | DSE_ITS ---
Date of service: 08/02/18 Time of Service: 13:50 DS: Diagnosis Discharge Diagnosis (1) Unwitnessed fall: Status: Acute (2) Postconcussive syndrome: Status: Acute (3) Facial fracture due to fall: Status: Acute (4) Head injury, closed, with concussion: Status: Acute (5) Hyperlipidemia: Status: Chronic Discharge Plan Disposition Patient Disposition: HOME Condition: Improving Discharge Details Reason For Visit: CONCUSSION Admit Date/Time: 08/01/18 09:05 Admit Provider: Jr Mercado Attending Provider: Jr Mercado Primary Care Provider: Tiago Demarco [facility] Course Hospital Course: CC: Fall HPI: 67 year old man with a past history significant for dyslipidemia, BPH, and OA, and 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 Mr. Mccracken was brought in to the ED by his neighbor after presumably sustaining a fall on the ice. Patient was actually unsure regarding potential transient loss of consciousness as he has had no memory of the event. The fall caused a subsequent trauma to the right side of his face, as well as with an initially noted irregular and unresponsive right pupil. 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 Imaging with a CT of his head, neck and face demonstrated no acute intracranial findings, but a non-displaced fracture of his right zygoma, right lateral orbital wall and anterior and medial right maxillary sinsus adrian were demonstrated. ENT at [facility] was initially consulted and advised beginning Augmentin due to the fracture through the maxillary sinus, and to have the patient follow up with ENT as an outpatient, with no surgical needs at this time. However, because of continued nausea and vomiting the patient was admitted. Since his admission a repeat CT was obtained on 07/31 showing no acute IC hemorrhage, including a SDH. Patient appears improved overall, now reported resolved nausea and headache since yesterday. No other events reported. Remains afebrile. Hospital Course: (1) Unwitnessed fall: No evidence of abnormalities by tele again overnight with the exception of mild bradycardia, and ECHO essentially normal. Cardiac Biomarkers checked and negative. Will recommend carotid ultrasound as an outpatient to complete work-up for possible syncope - however, potentially with fall on the ice and post- concussive symptoms that include loss of memory of event. Bradycardia has been intermittent and longstanding per review of prior vitals, going back to minimum of 2010. Will obtain a Zio patch for a more prolonged monitoring. Will also check an EEG per neuro recommendations, but doubt seizure activity as etiology for patient's fall without classic features. Repeat CT unchanged and without acute pathology. (2) Postconcussive syndrome: Noted. Currently nausea appears resolved, as are headaches for over 24 hours. Patient advised to return to the ED or call his doctor's office if symptoms recur or persist. (3) Facial fracture due to fall: Follow-up ENT as outpatient. Continue Augmentin for another 7 days. Currently on modified diet. (4) Head injury, closed, with concussion: Repeat Head CT negative for IC Hemorrhage. (5) Disposition: Patient discharged home with follow-up to be planned for ENT and PCP within 1 week of discharge. An outpatient EEG and Carotid ultrasound will be scheduled as well. Home Meds and New Rx's Prescriptions: New acetaminophen-codeine [Tylenol-Codeine #3] 300-30 mg Tablet 1 - 2 tab PO Q4H PRN PRN (Reason: pain) Qty: 20 RF: 0 amoxicillin-pot clavulanate 875-125 mg Tablet 1 tab PO BID Qty: 14 RF: 0 Continued acyclovir 400 MG tablet 400 mg PO BID Qty: 180 RF: 4 Durezol 5 ML drops 1 drp Ophthalmic QID RF: 0 aspirin 325 MG tablet 325 mg PO DAILY Qty: 90 RF: 4 simvastatin 40 MG tablet 1 tab PO HS Qty: 90 RF: 4 fluoxetine [Prozac] 20 MG capsule 20 mg PO DAILY Qty: 90 RF: 4 tamsulosin 0.4 mg capsule 0.8 mg PO HS Qty: 180 RF: 3 finasteride 5 mg tablet 5 mg PO HS Qty: 90 RF: 4 Discharge Instructions Activity:: No Strenuous Activity Equipment/Supplies:: No Equipment Needed Diet:: Soft Discharge Orders Discharge Orders: Discharge Order (Routine); Ordered 08/02/18 Ordered By: Geovany Judd Other Ambulatory Orders: EEG (Outpt) (ONCE) (1) Location: Determined by Patient Ordered By: Geovany Judd US carotid (Routine) Location: Determined by Patient Ordered By: Geovany Judd DS: Data Vitals/I&O Vitals and I&O: Vital Signs Temperature 36.9 C 08/02/18 07:25 Temperature Source Tympanic 08/02/18 07:25 Pulse 54 L 08/02/18 07:25 Pulse Rhythm Regular 08/02/18 04:00 Respiratory Rate 20 08/02/18 07:25 Respiratory Effort Non-Labored 08/02/18 04:00 Respiratory Depth Normal 08/02/18 04:00 Respiratory Pattern Normal 08/02/18 04:00 Blood Pressure 134/83 08/02/18 07:25 Blood Pressure Mean 74 07/30/18 22:21 Blood Pressure Position Supine 07/30/18 16:18 Pulse Oximetry 92 L 08/02/18 07:25 Oxygen Delivery Method Room Air 08/02/18 07:25 Oxygen Flow Rate 0 08/02/18 07:25 Pain Level 0 08/02/18 07:25 Comment 07/30/18 23:04 Intake & Output 08/01/18 08/02/18 08/02/18 23:59 11:59 23:59 Intake Total 1797.5 / 3097.5 250 / 250 Balance 1797.5 / 2197.5 250 / 250 Weight 108.7 kg Intake: IV 1797.5 / 2797.5 Oral 250 / 250 Other: Comment pt voiding independently in toilet Voiding independently in toilet, urine not seen. Voiding Methods Toilet Toilet Completed studies during hospitalization [Text1]: Exam(s) 07/[address]:CT head cerv spine & facial wo SYMPTOM/DIAGNOSIS: ? FX, TRAUMA, PAIN NONCONTRAST HEAD AND FACIAL CT: The ventricles and sulci are consistent with the patient's age. The ventricles are intact. The basilar cisterns are patent. There is a normal cabrales white matter differentiation. No intracranial hemorrhage, acute midline shift or mass effect is identified. No calvarial fracture is seen. There is a nondisplaced fracture of the right zygomatic arch. There is a minimally depressed fracture involving the lateral wall of the right maxillary sinus and a mildly depressed fracture involving the medial wall of the right maxillary sinus. There is a nondisplaced fracture involving the anterior wall of the right maxillary sinus which extends superiorly medial to the infra- orbital foramen into the floor of the right orbit. No depression is seen. No muscle entrapment is identified. The orbital and retro-orbital soft tissues are unremarkable on the right. There is a fluid level seen in the right maxillary sinus. The remaining visualized paranasal sinuses are clear except for a small fluid level in the sphenoid sinuses. The mastoid air cells are well pneumatized. Post surgical changes are seen in the right globe. IMPRESSION: 1. No acute intracranial process. 2. Fractures involving the right zygoma, the lateral and medial adrian of the right maxilla. 3. Nondisplaced fracture involving the anterior wall of the right maxilla with extension superiorly into the right orbital floor. No orbital floor depression or muscle entrapment is identified. CERVICAL SPINE CT: Multiple contiguous axial images of the cervical spine were obtained. Sagittal and coronal reformatted images were evaluated on the [employer] work station. No acute fracture or subluxation is seen in the cervical spine. There are degenerative changes present. The soft tissues are unremarkable. IMPRESSION: No acute fracture or subluxation in the cervical spine. Exam(s) 07/30 a RAD:XR hip RT complete & AP pelvis SYMPTOMS/DIAGNOSIS: FALL, RT HIP PAIN RIGHT HIP AND PELVIS: No acute fracture or dislocation is seen. There is a right hip prosthesis which appears stable. IMPRESSION: No acute fracture or dislocation. Exam(s) 07/30 a RAD:XR portable chest AP SYMPTOMS/DIAGNOSIS: MILD HYPOXEMIA PORTABLE AP CHEST: Comparison is 03/22/11. The heart size is difficult to evaluate due to the elevated right hemidiaphragm and patient positioning. The pulmonary vasculature appears within normal limits. There is marked elevation of the right hemidiaphragm. No definite focal consolidating infiltrates, effusions or pneumothoraces are identified. There are increased interstitial lung markings which may be due to crowding of the pulmonary vasculature due to the low lung volumes. Mild interstitial infiltrate/edema can not be excluded. IMPRESSION: 1. Low lung volumes and marked elevation of the right hemidiaphragm. 2. Prominent interstitial markings. This may be due to crowding of the pulmonary vasculature due to the low lung volumes. Interstitial infiltrate/edema can not be excluded. Please correlate clinically. Exam(s) a US:US echocardiogram Date of study: 07/31/2018 Transthoracic Echocardiography M-mode, complete 2D, complete spectral Doppler, and color Doppler *STUDY CONCLUSIONS* Summary: 1. Left ventricle: The cavity size was normal. Systolic function was normal. The estimated ejection fraction was 60-65%. There was no evidence of elevated ventricular filling pressure by Doppler parameters. 2. Aortic valve: There was very mild stenosis. Peak velocity (S): 1.9m/sec. Mean gradient (S): 7.4mm Hg. VTI ratio of LVOT to aortic valve: 0.67. Valve area (VTI): 1.8cm^2. 3. Mitral valve: There was mild regurgitation. 4. Right ventricle: The cavity size was normal. Wall thickness was normal. Systolic function was normal. 5. Pulmonary arteries: Pulmonary systolic pressure was >= 30mm Hg. 6. Inferior vena cava: Poorly visualized. EXAM: 07/31 CT Head Without Contrast EXAM DATE/TIME: 07/31/2018 6:27 PM CLINICAL HISTORY: 67 years old, male; Injury or trauma; Injury history: Concussion, head trauma, R/O head blled TECHNIQUE: Axial computed tomography images of the head/brain without contrast. Coronal and sagittal reformatted images were created and reviewed. COMPARISON: CT Head^HEAD ROUTINE (Adult) 09/17/2016 11:08 AM FINDINGS: Brain: No acute intracranial hemorrhage. There is mild diffuse heterogeneity of the white matter attenuation, consistent with chronic white matter ischemic changes. Mild cerebral atrophy Ventricles: Normal. No ventriculomegaly. Bones/joints: Normal. No acute fracture. Sinuses: Mucosal thickening in the ethmoid sinuses, right maxillary sinus, and sphenoid sinuses may represent sinusitis Mastoid air cells: Normal as visualized. No mastoid effusion. Orbits: Surgery of the right globe Soft tissues: Normal. IMPRESSION: No acute intracranial hemorrhage. [facility] Medical History Hyperlipidemia (Chronic) BPH (benign prostatic hyperplasia) (Chronic) Osteoarthritis, hip, bilateral (Chronic) Osteoarthritis, knee (Chronic) History of CVA (cerebrovascular accident) (Resolved) History of CVA (cerebrovascular accident) (Resolved) Surgical History H/O cystoscopy (Resolved) H/O: vasectomy (Resolved) History of bilateral knee arthroplasty (Resolved) History of detached retina repair (Resolved) History of tonsillectomy and adenoidectomy (Resolved) History of total right hip arthroplasty (Resolved) Status post removal of Zenker's diverticulum (Resolved) Arthroplasty of knee Cystoscopy Replacement of total knee joint (11/27/16) Tonsillectomy and adenoidectomy Vasectomy Family History Mother Essential hypertension Father Neoplasm Sister No problems noted. Grandfather Cancer Son No problems noted. Daughter No problems noted. Daughter No problems noted. Social History Smoking/Tobacco Use Status: Never
[2018-08-02 14:41] VITALS: PULSE 54
[2018-08-02 16:02] VITALS: BP 167/97; PULSE 58; RESP 18; TEMP 36.7; O2SAT 93
--- NOTE | 2018-08-02 19:18 | PDOC.CMDIS ---
- If Service Date Differs Date of service: 08/02/18 Time of Service: 19:18 LACE Index Scoring Tool - Questions: Length of Stay (in days): 3 Acuity (Admit via E.D.?): Yes Comorbidities: Cerebrovascular Disease E.D. Visits: 1 - Answers: Total Score: 8 Risk of Readmission: Low Risk Care Management Discharge Reason for Hospitalization: Concussion (fall on ice) Discharge Plan: Adin is being discharged home today with his spouse. He has a plan to manage pain he will follow up with with primary care and ENT as directed. He is being discharged home on antibiotics related to facila fractures. No additional services at time of discharge. His spouse will transport him home. Patient/Family Education Needs: Discharge education, limitations, follow-up plan of care asked me 3 and self-management.
--- NOTE | 2018-08-27 09:32 | ZIOP_ITS ---
ZIO PATCH CARDIAC MONITORING DEVICE DATE OF DICTATION August 27, 2018 INDICATION Syncope. ANALYISIS TIME - 13 Days and 20 hours. Predominant underlying rhythm is sinus rhythm. Average heart rate 70 beats per minute. Minimum heart rate 49 beats per minute, and max heart rate 182 beats per minute. 54 short bursts of SVT. The fastest in total lasting 5 beats with a max heart rate of 182 beats per minute. The longest lasting 13.5 seconds with an average heart rate of 119 beats per minute. Otherwise rare isolated atrial ectopy. Rare isolated ventricular ectopy. No nonsustained VT. No significant pauses or bradyarrhythmias. 9 patient triggered events all correspond to sinus rhythm. No diary entries. Overall sinus rhythm with short bursts of asymptomatic SVT. Rambo Adler M.D. MELISSA/connor T - 08/27/2018
== END 2018-08-02 16:22 | disposition home or self-care (01) | DRG 90 ==
LOC: ER 22:18 → MS 23:04
PROVIDERS: Internal Medicine; Physician Assistant; Admitting Provider Internal Medicine; Emergency Provider Student in an Organized Health Care Education/Training Program; PCP Family Medicine; Visit Provider Internal Medicine
DX: S09.90XA Unspecified injury of head, initial encounter (principal); S06.0X9A Concussion with loss of consciousness of unspecified duration, initial encounter; S02.40EA Zygomatic fracture, right side, initial encounter for closed fracture; S02.40CA Maxillary fracture, right side, initial encounter for closed fracture; S02.81XA Fracture of other specified skull and facial bones, right side, initial encounter for closed fracture; W00.0XXA Fall on same level due to ice and snow, initial encounter; F07.81 Postconcussional syndrome; G44.309 Post-traumatic headache, unspecified, not intractable; R11.2 Nausea with vomiting, unspecified; R41.3 Other amnesia; N40.0 Benign prostatic hyperplasia without lower urinary tract symptoms; I27.20 Pulmonary hypertension, unspecified; R00.1 Bradycardia, unspecified; Z96.641 Presence of right artificial hip joint
CPT/HCPCS: 36415; 80048; 80053; 93005; 93225; 93306; 96361; 96374; 96375; 99223; 99232; 99239; 99285; 70450; 70486; 71045; 72125; 73502; 83735; 84484; 85025; 85610; 85730; 93010; 99220; G0378; J2405; J2765; L0172

== ENCOUNTER 2018-08-03 11:35 | Outpatient (CLI) | payer MEDICARE, BC, SELFPAY ==
--- NOTE | 2018-08-03 13:23 | DI.US_ITS ---
SYMPTOM/DIAGNOSIS: CONCUSSION WITH LOSS OF CONSCIOUSNESS, S06.0X9A, ? SEIZURE, ? SYNCOPE R55 CAROTID ULTRASOUND: There is minimal calcific plaque in both common carotid bulbs. Velocity measurements obtained are in the normal range. There is no significant visible stenosis. Vertebral arteries show antegrade flow. IMPRESSION: No significant internal carotid artery stenosis. During the exam a mildly irregular heart rate was noted.
== END 2018-08-03 11:55 ==
PROVIDERS: PCP Family Medicine; Visit Provider Internal Medicine
DX: R55 Syncope and collapse (principal); S06.0X9D Concussion with loss of consciousness of unspecified duration, subsequent encounter; R00.8 Other abnormalities of heart beat
CPT/HCPCS: 93880

== ENCOUNTER 2018-08-04 01:59 | Outpatient (CLI) | payer MEDICARE, BC, SELFPAY ==
--- NOTE | 2018-08-05 11:03 | PDOC.EEG_ITS ---
EEG: [facility] Department of Neurology EEG REPORT Date of Recordin08/05/18 Interpreting Physician: Dr. Nolvia Lam PCP/Referring Provider: Dr. Demarco/Dr. Judd Reason for study: Mr. Mccracken is a 67 year-old man with a recent unwitnessed fall resulting in a facial fracture. Current Medications: acyclovir 400 mg PO BID #180 tab-cap 05/21/16 Durezol 1 drp OPHTHALMIC QID drp 10/03/16 aspirin 325 mg PO DAILY #90 tab-cap 07/10/17 fluoxetine [Prozac] 20 mg PO DAILY #90 tab-cap 12/12/17 simvastatin 1 tab PO HS #90 tab-cap 12/12/17 tamsulosin 0.4 mg capsule 0.8 mg PO HS #180 tab-cap 05/21/18 finasteride 5 mg tablet 5 mg PO HS #90 tab-cap 06/19/18 amoxicillin-pot clavulanate 1 tab PO BID #14 tab 08/02/18 METHODS: A 21 channel digitized electroencephalogram was performed in the [facility] Clinical Neurophysiology Laboratory. The 10/20 international system of electrode placement was used and bipolar and referential electrode montages were recorded. In addition to EEG the patient was monitored for EKG and lateral/vertical eye movements. Activation procedures of photic stimulation and hyperventilation were performed if applicable. Video was used during activation procedures and during events where applicable. The duration of the recording was 30 minutes. DESCRIPTION OF EEG: The patient was noted to be awake, drowsy, and asleep during the recording. During maximal wakefulness a 9-Hz posterior background rhythm was present which was well-modulated, symmetrical, reactive to eye opening, and of moderate volt age. With eye opening the background activity changed to a low voltage mixture of alpha, beta, and occasional theta range frequencies. Faster frequencies were present in the bilateral anterior head regions. There was a normal anterior- posterior voltage gradient. During drowsiness, there was attenuation of the posterior dominant background rhythm and vertex waves. Stage II sleep was present with symmetrical sleep spindles, K-complexes, and vertex waves. Activating Procedures: Photic stimulation was performed which produced a symmetrical posterior driving response at various flash frequencies. Hyperventilation was not performed. EKG: EKG revealed normal sinus rhythm. INTERPRETATION: This EEG is normal during the awake and sleep states as well as during photic stimulation and hyperventilation. PRIOR EEG: none CLINICAL CORRELATION: No focal regions of cerebral dysfunction or epileptiform activity was present. Epilepsy remains a clinical diagnosis and a normal EEG does not rule out epilepsy. Clinical correlation is advised. Nolvia Lam MD
== END 2018-08-04 02:19 ==
PROVIDERS: PCP Family Medicine; Visit Provider Internal Medicine
DX: S06.0X9D Concussion with loss of consciousness of unspecified duration, subsequent encounter (principal); R55 Syncope and collapse; W19.XXXD Unspecified fall, subsequent encounter
CPT/HCPCS: 95819

== ENCOUNTER → 2018-08-05 13:48 | Outpatient (BNVA) | payer MEDICARE, BC, SELFPAY | PROVIDERS: PCP Family Medicine; Visit Provider Psychiatry & Neurology Neurology | DX: R69 Illness, unspecified (principal) ==

== ENCOUNTER → 2018-08-26 12:23 | Outpatient (BNVA) | payer MEDICARE, BC, SELFPAY | PROVIDERS: PCP Family Medicine; Visit Provider Nurse Practitioner Adult Health | DX: S06.0X9A Concussion with loss of consciousness of unspecified duration, initial encounter (principal); W19.XXXA Unspecified fall, initial encounter; I10 Essential (primary) hypertension | CPT/HCPCS: 99204; 99215 ==

== ENCOUNTER 2018-08-27 08:30 | Outpatient (CLI) | payer MEDICARE, BC, SELFPAY | END 2018-08-27 08:50 | PROVIDERS: PCP Family Medicine; Referring Provider Internal Medicine; Visit Provider Internal Medicine Cardiovascular Disease | DX: R55 Syncope and collapse (principal); I47.1 Supraventricular tachycardia | CPT/HCPCS: 0298T ==

== ENCOUNTER → 2019-06-22 08:28 | Outpatient (BNVA) | payer MEDICARE, BC, SELFPAY | PROVIDERS: PCP Family Medicine; Referring Provider Family Medicine; Visit Provider Nurse Practitioner Gerontology | DX: N40.1 Benign prostatic hyperplasia with lower urinary tract symptoms (principal); N13.8 Other obstructive and reflux uropathy; N32.81 Overactive bladder | CPT/HCPCS: 99204; 99215 ==

== ENCOUNTER 2019-07-08 14:47 | Outpatient (CLI) | payer MEDICARE, BC, SELFPAY ==
[2019-07-08 16:33] LABS: Anion Gap 7.4 mmol/L (3-11); BUN 18 mg/dL (7-18); CO2 31.6 mmol/L (21.0-32.0); CREATININE 0.78 mg/dL (0.70-1.30); Chloride 105 mmol/L (98-107); Glucose 83 mg/dL (74-106); Potassium 4.7 mmol/L (3.5-5.1); Sodium 144 mmol/L (136-145)
[2019-07-09 10:15] LABS: PSA, Screening 0.4 ng/mL (0.0-4.5)
== END 2019-07-08 15:07 ==
PROVIDERS: PCP Family Medicine; Visit Provider Nurse Practitioner Gerontology
DX: I10 Essential (primary) hypertension (principal); N13.8 Other obstructive and reflux uropathy; N40.1 Benign prostatic hyperplasia with lower urinary tract symptoms; Z12.5 Encounter for screening for malignant neoplasm of prostate
CPT/HCPCS: 36415; 80048; 84153

== ENCOUNTER 2019-08-12 09:02 | Inpatient (IN) | payer MEDICARE, BC, SELFPAY ==
[2019-08-12] VITALS (13 sets, daily range): BP systolic 118–137; BP diastolic 59–86; PULSE 55–67; RESP 11–18; TEMP 36.2–36.6; O2SAT 88–98
--- NOTE | 2019-08-12 09:31 | HPE_ITS ---
Date of service: 08/12/19 Time of Service: 09:32 Assessment and Plan Assessment and plan (1) BPH w urinary obs/LUTS: Status: Acute Assessment and plan: For cystoscopy with TURP. We will plan on keeping him in the hospital overnight for continuous bladder irrigation. Since his hip replacement occurred within the past 2 years, we will give a broad spectrum antibiotic preoperatively History of Present Illness History of Present Illness Chief Complaint: Lower urinary tract symptoms Narrative: This is a 68-year-old gentleman who has progressive worsening of lower urinary tract symptoms, presumably due to bladder outlet obstruction. He is currently on maximal medical therapy but his symptoms progress. He has not gone into urinary retention. He has no history of gross hematuria or urinary tract infections. He is especially bothered by slowing of his urinary stream, urgency and nocturia 1-3 times. His AUA symptom score is 22 out of 35 while on maximal medical therapy. Because of his progressive symptoms, he presents for transurethral resection of the prostate. Review of Systems Narrative: No fevers or chills No vision change or dysphasia. Decreased hearing No diabetes or thyroid No shortness of breath, cough or hemoptysis No chest pain. Hx bundle branch block No nausea, vomiting, hepatitis, ulcers, jaundice, diarrhea or constipation No seizures, strokes or peripheral neuropathy. Hx concussion No bleeding disorders or anemia No gout. Multiple fractures. Bilateral knee replacement > 2 years ago. [facility] Social History (Updated 05/17/19 @ 11:31 by Bud Mota) Smoking/Tobacco Use Status: Never Alcohol Intake: current Alcohol Intake frequency: 0-2 drinks per day Alcohol type: beer Drug use: Never Substance use type: does not use Caregiver/Support person: No Household members: spouse Housing: house Communication Needs: Hard of Hearing Pets and animals: Yes Pets and animals: dog(s) Sexually active: No Do you think of yourself as: straight/heterosexual Current gender identity: decline to answer What is your relationship status?: How often do you talk on the phone with friends or family?: three or more times per week How often do you get together with friends or relatives?: three or more times per week How often do you attend cheondoism or christian services?: decline to answer Do you belong to any clubs or organized social groups?: yes Panel score (0-1 are the most socially isolated patients): 3 What type of physical activity do you participate in: none Liv/Scientology: Congregation Special liv needs: No Seatbelt use: always Helmet use: No 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 Do you feel safe at home: Yes Do you feel safe in your relationship?: Yes Meds Home Medications and Allergies Home Medications Medication Instructions Recorded Confirmed Type acyclovir 400 mg PO BID #180 tab-cap 05/21/16 08/12/19 History aspirin 325 mg PO DAILY #90 tab-cap 07/10/17 08/12/19 Rx finasteride 5 mg tablet 5 mg PO HS #90 tab-cap 06/19/18 08/12/19 Rx fluoxetine 20 mg capsule 20 mg PO DAILY #90 tab-cap 03/11/19 08/12/19 Rx simvastatin 40 mg tablet 40 mg PO HS #90 tab-cap 03/11/19 08/12/19 Rx tamsulosin 0.4 mg capsule 0.8 mg PO HS #180 tab-cap 03/11/19 08/12/19 Rx difluprednate 0.05 % eye drops 1 drp OPHTHALMIC .3 X weekly drp 07/27/19 08/12/19 History Allergies Allergy/AdvReac Type Severity Reaction Status Date / Time Sulfa (Sulfonamide Allergy Unknown Unverified 08/12/19 09:31 Antibiotics) Exam Const General: cooperative, comfortable and no acute distress Neck Neck: supple Resp Effort & Inspection: normal respiratory effort Auscultation: clear to auscultation bilaterally Cardio Rate: regular rate Rhythm: regular rhythm GI Inspection: normal to inspection Palpation: soft and no masses Neuro General: alert, awake and oriented x3 Results Last Vital Signs Temp 36.2 C L 08/12/19 09:18 Pulse 63 08/12/19 09:18 Resp 16 08/12/19 09:18 BP 136/86 08/12/19 09:18 Pulse Ox 94 L 08/12/19 09:18
[2019-08-12] MEDS: Lactated Ringers 1,000 ML 80 ML IV ×3 (09:45→22:54)
[2019-08-12] MEDS: ceFAZolin 2 GM/50 ML BAG IVPB (10:40)
[2019-08-12] MEDS: GENTAMICIN 120 MG in Normal Saline 100 ML 200 MG IVPB (10:45)
[2019-08-12] MEDS: Lidocaine 2% Jelly 6 ML SYR (10:48)
--- NOTE | 2019-08-12 11:00 | PROST_PTH ---
PATIENT: Adin Mccracken LOC: ICU U#:[id number] AGE/SX: 68/M ROOM: ICU.220 RE08/12/[address]: Holland Cruz MD : [id number] BED: A DIS: 08/14/2019 SPEC #: [id number] RECD: 08/12/19 16:13 STATUS: SOUT REQ #: [id number] LEONARD: 08/12/19 11:[address]: Holland Cruz DEPT: Surgical Specimen RECD BY: Betsy Lyon ENTERED: 08/12/19 16:14 SP TYPE: PROST OTHR DR: Tiago Demarco MD Tissues: 1 - PROSTATE CURRETTINGS Procedures: GROSS AND MICRO LEVEL 4 Comments: [id number]
--- NOTE | 2019-08-12 15:01 | NUR.NOTE ---
Nursing Note: PACU nurse brought up Pt to room 225. Pt stand pivot to bed from stretcher. VSS, see worklist. Pt A&Ox3. denies pain. CBI runnning. no c/o pain @ this time. Will continue to monitor.
[2019-08-12] MEDS: ceFAZolin 1 GM/50 ML BAG IVPB ×2 (16:21→23:28)
[2019-08-12] MEDS: Ketorolac 15 MG/ML VIAL IVP ×2 (16:21→22:04)
[2019-08-12] MEDS: Docusate Sodium 100 MG CAP PO (20:29)
[2019-08-12] MEDS: Acyclovir 400 MG TAB PO (20:29)
[2019-08-12] MEDS: Finasteride 5 MG TAB PO (22:05)
[2019-08-12] MEDS: Tamsulosin 0.4 MG CAPCR 0.8 MG PO (22:05)
[2019-08-13] VITALS (129 sets, daily range): BP systolic 67–128; BP diastolic 42–87; PULSE 57–104; RESP 11–30; TEMP 35.7–37; O2SAT 90–99
[2019-08-13] MEDS: Ketorolac 15 MG/ML VIAL IVP ×2 (03:15→10:39)
[2019-08-13] MEDS: Normal Saline Flush 10 ML SYR IV ×2 (03:16→10:40)
[2019-08-13 06:50] LABS: HCT 32.5 % (40.0-50.0); HGB 10.7 g/dL (13.5-17.5); Mean Corp. HGB Concentration 32.9 g/dL (32.0-36.0); Mean Corpuscular Hemoglobin 30.5 pg (27.0-33.0); Mean Corpuscular Volume 92.6 fL (80-95); Mean Platelet Volume 8.8 fL (8.0-11.0); Platelet Count 207 x1000/uL (130-400); RBC 3.51 m/cumm (4.50-6.00); RBC Distribution Width 12.4 % (11.8-14.1); White Blood Cell Count 10.19 k/cumm (4.4-10.8)
[2019-08-13 07:01] LABS: Anion Gap 5.5 mmol/L (3-11); BUN 26 mg/dL (7-18); CO2 28.5 mmol/L (21.0-32.0); CREATININE 0.91 mg/dL (0.70-1.30); Calcium 7.6 mg/dL (8.5-10.1); Chloride 107 mmol/L (98-107); Glucose 142 mg/dL (74-106); Potassium 4.3 mmol/L (3.5-5.1); Sodium 141 mmol/L (136-145)
[2019-08-13] MEDS: Acyclovir 400 MG TAB PO ×2 (07:51→19:55)
[2019-08-13] MEDS: Docusate Sodium 100 MG CAP PO ×2 (07:51→19:55)
[2019-08-13] MEDS: Milk of Magnesia 30 ML CUP PO (07:56)
--- NOTE | 2019-08-13 08:44 | W.PM.PROGNOT ---
Date of Service Date of service: 08/13/19 Time of Service: 08:44 Assessment and Plan Assessment and plan (1) BPH w urinary obs/LUTS: Status: Acute Assessment and plan: We will discontinue his bladder irrigation and Hep-Lock his IV fluids. We will increase his activity. If the urine becomes more bloody, we can always restart the bladder irrigation. If the urine remains relatively transparent, we can let this gentleman go home later today with his catheter in place. He will come back to our office early next week to have his catheter removed. Subjective Subjective Interval history since last seen: Chief complaint: Postoperative day #1 The patient had a reasonably good night with no episodes of clot retention. He is tolerating p.o. intake. He denies any fevers or chills. Exam Narrative Exam Narrative: He looks well. His vital signs are documented elsewhere in the chart His abdomen is soft with no bladder distention His urine is clear with light bladder irrigation He is awake and alert His labs are reviewed and his hemoglobin and renal function are both stable. Objective Objective Clinical Data: Abnormal lab results 08/13/19 08/13/19 Range/Units 06:15 06:15 RBC 3.51 L (4.50-6.00) m/cumm Hgb 10.7 L (13.5-17.5) g/dL Hct 32.5 L (40.0-50.0) % BUN 26 H (7-18) mg/dL Glucose 142 H (74-106) mg/dL Calcium 7.6 L (8.5-10.1) mg/dL Vital Signs Temperature 36.4 C L 08/13/19 07:59 Temperature Source Tympanic 08/13/19 07:59 Pulse 86 08/13/19 07:59 Pulse Rhythm Irregular 08/13/19 03:15 Respiratory Rate 18 08/13/19 07:59 Respiratory Effort Non-Labored 08/13/19 03:15 Respiratory Depth Normal 08/13/19 03:15 Respiratory Pattern Normal 08/13/19 03:15 Blood Pressure 108/74 08/13/19 07:59 Pulse Oximetry 98 08/13/19 08:27 Respiratory End-tidal CO2 46 08/12/19 12:54 Oxygen Delivery Method Nasal Cannula 08/13/19 08:27 Oxygen Flow Rate 1 08/13/19 08:27 Pain Level 0 08/13/19 07:59 Intake & Output 08/12/19 08/12/19 08/13/19 11:59 23:59 11:59 Intake Total 853 / 3481.666 2628.666 / 3481.666 Balance 853 / 3481.666 2628.666 / 3481.666 Weight 108.2 kg Intake: IV 853 / 2721.666 1868.666 / 2721.666 Oral 760 / 760 Other: Urine Color Castro Castro Urine Appearance Hematuria Hematuria Comment CBI running on full rate. CBI running on full rate. Emesis Description None Laboratory Results WBC 10.19 k/cumm (4.4-10.8) 08/13/19 06:15 RBC 3.51 m/cumm (4.50-6.00) L 08/13/19 06:15 Hgb 10.7 g/dL (13.5-17.5) L 08/13/19 06:15 Hct 32.5 % (40.0-50.0) L 08/13/19 06:15 MCV 92.6 fL (80-95) 08/13/19 06:15 MCH 30.5 pg (27.0-33.0) 08/13/19 06:15 MCHC 32.9 g/dL (32.0-36.0) 08/13/19 06:15 RDW 12.4 % (11.8-14.1) 08/13/19 06:15 Plt Count 207 x1000/uL (130-400) 08/13/19 06:15 MPV 8.8 fL (8.0-11.0) 08/13/19 06:15 Sodium 141 mmol/L (136-145) 08/13/19 06:15 Potassium 4.3 mmol/L (3.5-5.1) 08/13/19 06:15 Chloride 107 mmol/L (98-107) 08/13/19 06:15 Carbon Dioxide 28.5 mmol/L (21.0-32.0) 08/13/19 06:15 Anion Gap 5.5 mmol/L (3-11) 08/13/19 06:15 BUN 26 mg/dL (7-18) H 08/13/19 06:15 Creatinine 0.91 mg/dL (0.70-1.30) 08/13/19 06:15 Estimated GFR/1.73 m2 >= 60.00 (mL/min/1.73m2) 08/13/19 06:15 Glucose 142 mg/dL (74-106) H 08/13/19 06:15 Calcium 7.6 mg/dL (8.5-10.1) L 08/13/19 06:15
[2019-08-13] MEDS: Normal Saline 1,000 ML 1000 ML IV ×2 (08:45→11:40)
--- NOTE | 2019-08-13 09:02 | ROE_ITS ---
REPORT OF OPERATIVE PROCEDURE DATE OF PROCEDURE August 12, 2019 PREOPERATIVE DIAGNOSES BPH with lower urinary tract symptoms. POSTOPERATIVE DIAGNOSES BPH with lower urinary tract symptoms. PROCEDURE Cystoscopy with transurethral resection of the prostate. SURGEON Holland Cruz M.D. ANESTHESIA General. COMPLICATIONS None. ESTIMATED BLOOD LOSS 200 cc. HISTORY This is a 68-year-old gentleman who has a history of progressive lower urinary tract symptoms. He has slowing of his urinary stream and postvoid dribbling. He has urgency and nocturia. He has already fa iled maximal medical therapy. He presents for transurethral resection of the prostate. OPERATIVE REPORT The patient was brought to the operating room on 08/12/2019 after successful induction of general ane sthesia. He was placed in the dorsal lithotomy position. His genitalia was prepped and draped steri brenda. 2% Xylocaine jelly was then instilled into the urethra. A #24-Chinese resectoscope sheath was passed through the urethra into the bladder. We used a visual o bturator to view the urethra and bladder. The pendulous, bulbous, and membranous urethras all appeared normal with no strictures. The prostatic urethra was not overly elongated, but there was quite a bit of tissue at the bladder neck with some elevation of the bladder neck. No significant median lobe was identified. The bladder neck was then entered and the bladder mucosa w as inspected. No bladder lesions were seen. Specifically, no papillary or nodular tumors were visual ized. No diverticula or cellules were seen; although, the bladder was quite trabeculated. We then used bipolar cautery to resect the prostate from the bladder neck out to the verumontanum. Th e depth of the resection was down to the prosthetic capsule. A large number of prosthetic calculi wer e identified and were evacuated along with the remainder of the resected tissue. As we neared the prosthetic capsule visually, we switched over to a vaporization button and vaporized the tissue back to the capsule. At the completion of the procedure, hemostasis appeared good. We filled the bladder with irrigant and removed the cystoscope. We then passed a #22-Chinese hematuria catheter through the urethra into to t he bladder. The catheter balloon was inflated with 30 cc of sterile water and continuous bladder irri gation was started. Traction was placed on the catheter balloon until the irrigant became clear. The patient tolerated this procedure with no complications. He was taken to the Recovery Room in sta ble condition. He will be kept overnight for continuous bladder irrigation through his catheter.
[2019-08-13 09:54] LABS: HCT 29.2 % (40.0-50.0); HGB 9.8 g/dL (13.5-17.5)
[2019-08-13 10:10] LABS: Troponin I < 0.05 ng/Ml (<0.06)
--- NOTE | 2019-08-13 10:47 | PHARADMIT ---
Admission Pharmacy Clinical Review BPT w/ LUTS Code Status full Current Weight Wgt-108.2 kg Renally Cleared and Narrow Therapeutic Index Meds CrCl~ 91 mL/min Meds-OK QTc Value / Action Taken QTc-456 na BP Control, Fever BP- 128/78 Tmax- 36.3C Electrolytes reviewed Na- 141 K+4.3 DVT Prophylaxis na Opiate Usage / Scheduled Bowel Regimen Ordered Yes Yes Plt/SCr for Heparin / Enoxaparin Plts- 20 SCr-0.91 INR for Warfarin na H/H stable, WBC/Bands H&H- 9.8/29.2 WBC- 10.19 Antibiotic appropriateness Zovirax, Cultures and Sensitivities none Surgical ABX d/c within 24 hr Yes DM control / Insulin Dosing BG- 142 Heart Failure (Check EF%) (RICHARD's, B-Block, Diuretics) none IV to PO Switch No Home Meds Reviewed Yes Home Meds Not Ordered ASA, Durezol, Zocor, Comments
--- NOTE | 2019-08-13 11:00 | PDOC.CMIN ---
Care Management Initial Assess REASON FOR HOSPITALIZATION:: BPT with LUTS PAST MEDICAL HISTORY/PAST SURGICAL HISTORY:: BPH, CVA, Hyperlipidemia, Ostarthritis, bilat TKA, cystoscopy, vasectomy, detached retina repair, T&A, R CRISTAL, removal of Zenker's diverticulum PREVIOUS FUNCTIONAL STATUS/SOCIAL/FAMILY SUPPORTS:: Adin resides with his , Bud Quinonez in [place], [place]. They have several adult children. 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 He states it was a good job and shares that since retiring he has struggled with multiple health issues. He is independent with ADLs in the community. He reports his leaves for weeks at a time, skiing in [place], he does not enjoy traveling and likes to stay home with their dog. CURRENT FUNCTIONAL STATUS:: Adin had a CODE BLUE response this morning. He reports having a syncopal episode and waking up surrounded by people. He reports it was scary, but he is feeling much better now. Adin is lying in bed, now in the ICU, on his computer pre-planning woodworking projects which is his hobby. ADVANCE DIRECTIVES:: On file at [facility], Bud as agent, Evelio as alternate. Has patient been provided with information about the portal?: Yes Did the patient sign up for the portal?: Yes CODE STATUS:: Full Code INSURANCE COVERAGE / FINANCIAL ISSUES:: Medicare, BC/BS CURRENT HOME/COMMUNITY SERVICES/EQUIPMENT:: Adin shares having past equipment, but none at this time. PRIMARY CARE PHYSICIAN:: Dr. Tiago Demarco POTENTIAL DISCHARGE NEEDS:: Follow up appointments. PATIENT/FAMILY EDUCATION NEEDS:: Discharge instructions, activity limitations, discuss Ask Me Three. ANTICIPATED BARRIERS TO DISCHARGE:: None identified. TRANSPORTATION:: Via private vehicle with his . PLAN:: Adin will continue to be closely monitored at this time. Anticipate he will discharge home with no additional services and follow up with his PCP and plan of care as prescribed. He will transport via private vehicle with family.
--- NOTE | 2019-08-13 11:11 | W.PM.PROGNOT ---
Date of Service Date of service: 08/13/19 Time of Service: 11:11 Subjective Subjective Interval history since last seen: Responded to linda mo called overhead. The patient, in fact, never lost his pulse or stopped breathing, but he did syncopize while nursing was attempting to unclog his three-way catheter, and there is no doubt in my mind that the mechanism of his syncope was vasovagal. When I arrived to the room to assess the patient, he was pale, alert, stating he already felt better. He denied chest pain. The patient's HR was initially in the 50's (sinus), and BP in 110's. I ordered the patient's head to be put down and legs elevated, a bolus of 1 L of NS, EKG, stat H/H and troponin. BP's and HR started to come up within 2-3 minutes. EKG is unchanged from prior and shows an incomplete RBBB, HR 76, no acute ischemia. H/H did drop from 10.7 this morning at 06:15 to 9.8 at 09:47. Troponin is negative, and suspicion for ACS is low. Objective Objective Clinical Data: Abnormal lab results 08/13/19 08/13/19 08/13/19 Range/Units 06:15 06:15 09:47 RBC 3.51 L (4.50-6.00) m/cumm Hgb 10.7 L 9.8 L (13.5-17.5) g/dL Hct 32.5 L 29.2 L (40.0-50.0) % BUN 26 H (7-18) mg/dL Glucose 142 H (74-106) mg/dL Calcium 7.6 L (8.5-10.1) mg/dL Vital Signs Temperature 35.7 C L 08/13/19 09:30 Temperature Source Temporal Artery Scan 08/13/19 09:30 Pulse 69 08/13/19 09:35 Pulse Rhythm Irregular 08/13/19 03:15 Respiratory Rate 16 08/13/19 09:35 Respiratory Effort Non-Labored 08/13/19 03:15 Respiratory Depth Normal 08/13/19 03:15 Respiratory Pattern Normal 08/13/19 03:15 Blood Pressure 128/78 08/13/19 09:35 Pulse Oximetry 95 08/13/19 09:35 Respiratory End-tidal CO2 46 08/12/19 12:54 Oxygen Delivery Method Room Air 08/13/19 09:35 Oxygen Flow Rate 0 08/13/19 09:35 Pain Level 0 08/13/19 07:59 Comment 08/13/19 09:35 Intake & Output 08/12/19 08/12/19 08/13/19 11:59 23:59 11:59 Intake Total 853 / 3481.666 2628.666 / 3481.666 480 / 480 Balance 853 / 3481.666 2628.666 / 3481.666 480 / 480 Weight 108.2 kg Intake: IV 853 / 2721.666 1868.666 / 2721.666 Oral 760 / 760 480 / 480 Other: Urine Color Castro Castro Urine Appearance Hematuria Hematuria Comment CBI running on full rate. CBI running on full rate. Emesis Description None Laboratory Results WBC 10.19 k/cumm (4.4-10.8) 08/13/19 06:15 RBC 3.51 m/cumm (4.50-6.00) L 08/13/19 06:15 Hgb 9.8 g/dL (13.5-17.5) L 08/13/19 09:47 Hct 29.2 % (40.0-50.0) L 08/13/19 09:47 MCV 92.6 fL (80-95) 08/13/19 06:15 MCH 30.5 pg (27.0-33.0) 08/13/19 06:15 MCHC 32.9 g/dL (32.0-36.0) 08/13/19 06:15 RDW 12.4 % (11.8-14.1) 08/13/19 06:15 Plt Count 207 x1000/uL (130-400) 08/13/19 06:15 MPV 8.8 fL (8.0-11.0) 08/13/19 06:15 Sodium 141 mmol/L (136-145) 08/13/19 06:15 Potassium 4.3 mmol/L (3.5-5.1) 08/13/19 06:15 Chloride 107 mmol/L (98-107) 08/13/19 06:15 Carbon Dioxide 28.5 mmol/L (21.0-32.0) 08/13/19 06:15 Anion Gap 5.5 mmol/L (3-11) 08/13/19 06:15 BUN 26 mg/dL (7-18) H 08/13/19 06:15 Creatinine 0.91 mg/dL (0.70-1.30) 08/13/19 06:15 Estimated GFR/1.73 m2 >= 60.00 (mL/min/1.73m2) 08/13/19 06:15 Glucose 142 mg/dL (74-106) H 08/13/19 06:15 Calcium 7.6 mg/dL (8.5-10.1) L 08/13/19 06:15 Troponin I < 0.05 ng/Ml (<0.06) 08/13/19 09:47
[2019-08-13 12:07] LABS: HCT 29.5 % (40.0-50.0); HGB 9.8 g/dL (13.5-17.5)
[2019-08-13] MEDS: Normal Saline 1,000 ML 999 ML IV (13:00)
--- NOTE | 2019-08-13 13:46 | MCONE_ITS ---
Date of service: 08/13/19 Time of Service: 13:46 Assessment and Plan Assessment and plan (1) Vasovagal syncope: Status: Acute Assessment and plan: In setting of clotting off of the urinary catheter, symptomatic anemia, orthostasis. Monitor in the ICU. Will transfuse 1 unit pRBC's and hydrate intravenously. D/c flomax. (2) Anemia due to acute blood loss: Status: Acute Assessment and plan: Due to hematuria. Transfuse 1 unit pRBC's as clearly symptomatic. Monitor serial H/H's. (3) Hematuria: Status: Acute Assessment and plan: Expected finding. Defer to Dr Cruz. (4) Orthostatic hypotension: Status: Acute Assessment and plan: Multifactorial - due to symptomatic anemia, vagal stimulus of having a urinary catheter/clotting off of the catheter, flomax therapy. D/c flomax. Transfuse 1 unit pRBC's and hydrate aggressively. Monitor in the ICU. (5) Symptomatic anemia: Status: Acute Assessment and plan: As above (6) DVT prophylaxis: Status: Acute Assessment and plan: Chemical DVT ppx contraindicated in setting of acute bleeding. Continue SCDs. Add TEDs. History of Present Illness History of Present Illness Chief Complaint: 2 episodes of syncope Narrative: Mr Mccracken is a 68 year old male who just underwent cystoscopy/TURP by Dr Cruz on 08/12/2019 for BPH with LUTS and has been on CBI on medical surgical floor with expected hematuria. He had his first syncopal episode this morning, for which Kisha Young was called overhead. When I came to assess the patient as part of the response, the patient was already awake, talking, stating he was dizzy but already feeling better. His BP's were in 110's and HR's in 50's. He denied chest pain. Notably, his three-way catheter was occluded by a blood clot, likely serving as a vagal stimulus to the original event. However, the patient also did look quite pale, and his Hgb had dropped from his baseline of about 15 to 10.7 on this am's draw and 9.8 at the time of the first event. His EKG revealed no changes and troponin was negative. At the time of the event, the patient's legs were elevated and he was given a bolus of 1 L of NS with improvement in BPs and symptoms. His second event occurred circa 11:30 while having his orthostatic vital signs checked. His BP did go down to 67/42 in the standing position. SBP improved back to 110's-120's once he was laid down and the patient's consciousness returned almost immediately. He was transferred to ICU for closer monitoring. He will be transfused 1 unit of pRBC's and was bolused 2 more L of NS. He denies h/o CHF or heart problems. Consults Consult date: 08/13/19 Requesting physician: Holland Curz Review of Systems All systems reviewed & are unremarkable except as noted in HPI and below PFSH Social History (Updated 05/17/19 @ 11:31 by Bud Mota) Smoking/Tobacco Use Status: Never Alcohol Intake: current Alcohol Intake frequency: 0-2 drinks per day Alcohol type: beer Drug use: Never Substance use type: does not use Caregiver/Support person: No Household members: spouse Housing: house Communication Needs: Hard of Hearing Pets and animals: Yes Pets and animals: dog(s) Sexually active: No Do you think of yourself as: straight/heterosexual Current gender identity: decline to answer What is your relationship status?: How often do you talk on the phone with friends or family?: three or more times per week How often do you get together with friends or relatives?: three or more times per week How often do you attend yarsani or amish services?: decline to answer Do you belong to any clubs or organized social groups?: yes Panel score (0-1 are the most socially isolated patients): 3 What type of physical activity do you participate in: none Liv/Hindu: Restoration Special liv needs: No Seatbelt use: always Helmet use: No Drive intox or ride w/intox furniture mover driver: No Do you feel safe at home: Yes Do you feel safe in your relationship?: Yes Exam Narrative Exam Narrative: General: obese male, A&Ox3, awake, pale with very pale mucosa Neuro: A&Ox3, no focal deficits Psych: appropriate speech pattern/content Skin: visible skin intact; pale HEENT: Atraumatic, normocephalic, EOMI, MMM Heart: RRR, no m/r/g Lungs: CTAB GI: abdomen is soft, nontender, nondsitended : has a 3-way catheter with hematuria Extremities: no e/c/c BLE's Results Last Vital Signs Temp 36.6 C 08/13/19 12:56 Pulse 74 08/13/19 13:31 Resp 19 08/13/19 13:40 BP 103/62 08/13/19 13:31 Pulse Ox 93 L 08/13/19 13:40 Labs Result diagrams: 08/13/19 11:56 08/13/19 06:15 Labs: Laboratory Results - last 24 hr 08/13/19 08/13/19 08/13/19 06:15 06:15 09:47 WBC 10.19 RBC 3.51 L Hgb 10.7 L 9.8 L Hct 32.5 L 29.2 L MCV 92.6 MCH 30.5 MCHC 32.9 RDW 12.4 Plt Count 207 MPV 8.8 Sodium 141 Potassium 4.3 Chloride 107 Carbon Dioxide 28.5 Anion Gap 5.5 BUN 26 H Creatinine 0.91 Estimated GFR/1.73 m2 >= 60.00 Glucose 142 H Calcium 7.6 L Troponin I Crossmatch 08/13/19 08/13/19 08/13/19 09:47 11:56 13:32 WBC RBC Hgb 9.8 L Hct 29.5 L MCV MCH MCHC RDW Plt Count MPV Sodium Potassium Chloride Carbon Dioxide Anion Gap BUN Creatinine Estimated GFR/1.73 m2 Glucose Calcium Troponin I < 0.05 Crossmatch See Detail EKG is unchanged from prior and shows an incomplete RBBB, HR 76, no acute ischemia.
[2019-08-13 14:30] LABS: Troponin I < 0.05 ng/Ml (<0.06)
[2019-08-13] MEDS: Normal Saline 1,000 ML 150 ML IV (14:47)
[2019-08-13] MEDS: Normal Saline 500 ML IV (16:59)
[2019-08-13 22:13] LABS: HCT 26.4 % (40.0-50.0); HGB 8.9 g/dL (13.5-17.5)
[2019-08-14] VITALS (55 sets, daily range): BP systolic 105–141; BP diastolic 47–74; PULSE 66–104; RESP 13–27; TEMP 36.8–37.3; O2SAT 91–96
[2019-08-14 06:37] LABS: Abs Immature Grans 0.01 k/cumm (0.0-0.09); Absolute Basophil Count 0.02 k/cumm (0.0-0.2); Absolute Eosinophil Count 0.12 k/cumm (0.0-0.7); Absolute Lymphocyte Count 1.67 k/cumm (1.2-3.4); Absolute Monocyte Count 0.76 k/cumm (0.11-0.7); Basophils % 0.3; Eosinophils % 1.7; HCT 26.7 % (40.0-50.0); HGB 8.8 g/dL (13.5-17.5); Immature Grans % 0.1 %; Lymphocytes % 24.3; Mean Corpuscular Hemoglobin 30.7 pg (27.0-33.0); Mean Platelet Volume 8.9 fL (8.0-11.0); Neutrophils % 62.6; Platelet Count 151 x1000/uL (130-400); RBC 2.87 m/cumm (4.50-6.00); RBC Distribution Width 12.7 % (11.8-14.1); White Blood Cell Count 6.88 k/cumm (4.4-10.8)
[2019-08-14 06:43] LABS: Absolute Neutrophil Count 4.31 k/cumm (1.2-6.7)
[2019-08-14 06:49] LABS: Anion Gap 6.5 mmol/L (3-11); BUN 15 mg/dL (7-18); CO2 29.5 mmol/L (21.0-32.0); CREATININE 0.72 mg/dL (0.70-1.30); Calcium 7.3 mg/dL (8.5-10.1); Chloride 109 mmol/L (98-107); Glucose 101 mg/dL (74-106); Magnesium 1.8 mg/dL (1.8-2.4); Potassium 3.9 mmol/L (3.5-5.1); Sodium 145 mmol/L (136-145)
[2019-08-14] MEDS: Docusate Sodium 100 MG CAP PO (08:41)
[2019-08-14] MEDS: FLUoxetine 20 MG CAP PO (08:41)
[2019-08-14] MEDS: Normal Saline 1,000 ML 150 ML IV (08:42)
[2019-08-14] MEDS: Acyclovir 400 MG TAB PO (08:42)
--- NOTE | 2019-08-14 08:55 | W.PM.PROGNOT ---
Date of Service Date of service: 08/14/19 Time of Service: 08:55 Assessment and Plan Assessment and plan (1) BPH w urinary obs/LUTS: Status: Acute Assessment and plan: He has improved with the excellent care of our hospitalists. I think it is safe for him to be discharged with his catheter in place. He will follow up in my office early next week for catheter removal. (2) Orthostatic hypotension: Status: Acute (3) Anemia due to acute blood loss: Status: Acute (4) Vasovagal syncope: Status: Acute Subjective Subjective Interval history since last seen: CC: Post operative day #2 He feels and looks better this morning without dizzyness. His urine has remained clear without irrigation. Exam Narrative Exam Narrative: He looks well His urine is light pink without irrigation for several hours He is awake and alert Objective Objective Clinical Data: Abnormal lab results 08/13/19 08/13/19 08/13/19 Range/Units 09:47 11:56 13:32 RBC (4.50-6.00) m/cumm Hgb 9.8 L 9.8 L (13.5-17.5) g/dL Hct 29.2 L 29.5 L (40.0-50.0) % Absolute Monocytes (0.11-0.7) k/cumm Chloride (98-107) mmol/L Calcium (8.5-10.1) mg/dL Crossmatch See Detail 08/13/19 08/14/19 08/14/19 Range/Units 22:03 05:55 05:55 RBC 2.87 L (4.50-6.00) m/cumm Hgb 8.9 L 8.8 L (13.5-17.5) g/dL Hct 26.4 L 26.7 L (40.0-50.0) % Absolute Monocytes 0.76 H (0.11-0.7) k/cumm Chloride 109 H (98-107) mmol/L Calcium 7.3 L (8.5-10.1) mg/dL Crossmatch Vital Signs Temperature 37.3 C 08/14/19 08:33 Temperature Source Temporal Artery Scan 08/13/19 12:56 Pulse 98 H 08/14/19 08:12 Pulse Rhythm Regular 08/13/19 07:30 Pulse 101 H 08/14/19 08:12 Respiratory Rate 22 02/08/20 08:33 Respiratory Effort 08/14/19 08:33 Respiratory Depth Normal 08/14/19 08:33 Respiratory Pattern Normal 08/14/19 08:33 Blood Pressure 118/72 08/14/19 08:33 Blood Pressure Mean 87 08/14/19 08:33 Pulse Oximetry 93 L 08/14/19 08:33 Respiratory End-tidal CO2 46 08/12/19 12:54 Oxygen Delivery Method Room Air 08/13/19 19:34 Oxygen Flow Rate 0 08/13/19 19:34 Pain Level 0 08/14/19 08:33 Comment 08/13/19 09:35 Intake & Output 08/13/19 08/13/19 08/14/19 11:59 23:59 11:59 Intake Total 480 / 5435.0 4955.0 / 5435.0 892.5 / 892.5 Balance 480 / 5435.0 4955.0 / 5435.0 892.5 / 892.5 Weight 108.2 kg Intake: IV 4215.0 / 4215.0 892.5 / 892.5 Oral 480 / 720 240 / 720 Blood Product 400 / 400 Rbc Leuko Reduced Unit 400 / 400 [id number] Other 100 / 100 Rbc Leuko Reduced Unit 100 / 100 [id number] Other: Urine Color Castro Culbertson Culbertson Urine Appearance Hematuria Clear Comment CBI running on full rate. pt tolerating CBI well pt tolerating CBI well. [address] is clamped since start of shift. Stool Occult Blood Negative Stool Size Small Stool Characteristics Soft Formed Laboratory Results WBC 6.88 k/cumm (4.4-10.8) D 08/14/19 05:55 RBC 2.87 m/cumm (4.50-6.00) L 08/14/19 05:55 Hgb 8.8 g/dL (13.5-17.5) L 08/14/19 05:55 Hct 26.7 % (40.0-50.0) L 08/14/19 05:55 MCV 93.0 fL (80-95) 08/14/19 05:55 MCH 30.7 pg (27.0-33.0) 08/14/19 05:55 MCHC 33.0 g/dL (32.0-36.0) 08/14/19 05:55 RDW 12.7 % (11.8-14.1) 08/14/19 05:55 Plt Count 151 x1000/uL (130-400) 08/14/19 05:55 MPV 8.9 fL (8.0-11.0) 08/14/19 05:55 Immature Gran % 0.1 % 08/14/19 05:55 Neutrophils % 62.6 08/14/19 05:55 Lymphocytes % 24.3 08/14/19 05:55 Monocytes % 11.0 08/14/19 05:55 Eosinophils % 1.7 08/14/19 05:55 Basophils % 0.3 08/14/19 05:55 Absolute Neutrophils 4.31 k/cumm (1.2-6.7) 08/14/19 05:55 Absolute Lymphocytes 1.67 k/cumm (1.2-3.4) 08/14/19 05:55 Absolute Monocytes 0.76 k/cumm (0.11-0.7) H 08/14/19 05:55 Absolute Eosinophils 0.12 k/cumm (0.0-0.7) 08/14/19 05:55 Absolute Basophils 0.02 k/cumm (0.0-0.2) 08/14/19 05:55 Sodium 145 mmol/L (136-145) 08/14/19 05:55 Potassium 3.9 mmol/L (3.5-5.1) 08/14/19 05:55 Chloride 109 mmol/L (98-107) H 08/14/19 05:55 Carbon Dioxide 29.5 mmol/L (21.0-32.0) 08/14/19 05:55 Anion Gap 6.5 mmol/L (3-11) 08/14/19 05:55 BUN 15 mg/dL (7-18) D 08/14/19 05:55 Creatinine 0.72 mg/dL (0.70-1.30) 08/14/19 05:55 Estimated GFR/1.73 m2 >= 60.00 (mL/min/1.73m2) 08/14/19 05:55 Glucose 101 mg/dL (74-106) 08/14/19 05:55 Calcium 7.3 mg/dL (8.5-10.1) L 08/14/19 05:55 Magnesium 1.8 mg/dL (1.8-2.4) 08/14/19 05:55 Troponin I < 0.05 ng/Ml (<0.06) 08/13/19 14:00 Patient ABO/Rh A Positive 08/13/19 13:32 Antibody Screen Negative 08/13/19 13:32 Crossmatch See Detail 08/13/19 13:32
--- NOTE | 2019-08-14 09:14 | DSE_ITS ---
Date of service: 08/14/19 Time of Service: 09:14 DS: Diagnosis Discharge Diagnosis (1) BPH w urinary obs/LUTS: Status: Acute (2) Orthostatic hypotension: Status: Acute (3) Anemia due to acute blood loss: Status: Acute (4) Vasovagal syncope: Status: Acute Discharge Plan Disposition Patient Disposition: HOME Condition: Stable Discharge Details Reason For Visit: BPT WITH LUTS Admit Date/Time: 08/12/19 09:02 Admit Provider: Holland Cruz Attending Provider: Holland Cruz Primary Care Provider: Tiago Demarco [facility] Hospital Course: The patient was admitted for an elective transurethral resection of the prostate. Prior to the surgery, he had been on maximal medical therapy. He was kept in the hospital overnight for bladder irrigation. We discontinued the irrigation on postoperative day #1. The patient experienced an episode of hypotension which was thought to be related to a vasovagal reaction because he returned to baseline very quickly. Later that day, he had another episode of hypotension and tachycardia. We felt this was due to acute blood loss anemia in addition to hypotensive side effects related to his morning dose of tamsulosin. He was transferred to the intensive care unit and monitored more closely. He was given fluid resuscitation and his tamsulosin was discontinued. On postoperative day #2, he felt much better. His blood pressure was stable. He was having no episodes of hypotension. He is felt to be stable for discharge at this time. Home Meds and New Rx's Prescriptions: New oxycodone 5 mg capsule 5 mg PO Q6H PRN (Reason: pain) Qty: 12 RF: 0 Continued acyclovir 400 MG tablet 400 mg PO BID Qty: 180 RF: 4 finasteride 5 mg tablet 5 mg PO HS Qty: 90 RF: 4 simvastatin 40 mg tablet 40 mg PO HS Qty: 90 RF: 4 fluoxetine [Prozac] 20 mg capsule 20 mg PO DAILY Qty: 90 RF: 4 Durezol 0.05 % drops 1 drp Ophthalmic .3 X weekly RF: 0 Discontinued aspirin 325 MG tablet 325 mg PO DAILY Qty: 90 RF: 4 tamsulosin 0.4 mg capsule 0.8 mg PO HS Qty: 180 RF: 3 Discharge Instructions Additional Instructions: May restart aspirin once urine becomes clear and yellow Do not restart Tamsulosin but continue with Finasteride Arita to leg bag during the day - may switch to larger drainage bag at night OK to shower catheter plug to irrigation port F/U in my office Friday or Friday for catheter removal (can walk in anytime after 8AM) Will need formal followup with me about 1 week later to review pathology report Activity:: no straining or lifting over 10 pounds Equipment/Supplies:: arita to drainage bags Diet:: As Tolerated Discharge Orders Discharge Orders: Discharge Order (Routine); Ordered 08/14/19 Ordered By: Holland Cruz DS: Summary Status at Discharge Functional status at discharge: independent ambulation Overall status at discharge: patient is back to baseline Mental Status: mental status grossly normal Speech and Movement: speech and movement normal Mood: congruent mood Affect: normal affect Time Spent with Patient providing and/or coordinating discharge services: Less than 30 minutes Exam Narrative Exam Narrative: At the time of discharge, the patient looks well His vital signs are documented elsewhere in the chart of note is that he is no longer showing orthostatic hypotension. He still has some increased heart rate with change of position His lungs are clear Cardiac exam shows a regular rate and rhythm His abdomen is soft. His bladder is not distended His urine is pink-colored but transparent with his bladder irrigation discontinued He is awake and alert Psych Mental Status: mental status grossly normal Speech and Movement: speech and movement normal Mood: congruent mood Affect: normal affect DS: Data Vitals/I&O Vitals and I&O: Vital Signs Temperature 37.3 C 08/14/19 08:33 Temperature Source Temporal Artery Scan 08/13/19 12:56 Pulse 98 H 08/14/19 08:12 Pulse Rhythm Regular 08/13/19 07:30 Pulse 101 H 08/14/19 08:12 Respiratory Rate 22 08/14/19 08:33 Respiratory Effort 08/14/19 08:33 Respiratory Depth Normal 08/14/19 08:33 Respiratory Pattern Normal 08/14/19 08:33 Blood Pressure 118/72 08/14/19 08:33 Blood Pressure Mean 87 08/14/19 08:33 Pulse Oximetry 93 L 08/14/19 08:33 Respiratory End-tidal CO2 46 08/12/19 12:54 Oxygen Delivery Method Room Air 08/13/19 19:34 Oxygen Flow Rate 0 08/13/19 19:34 Pain Level 0 08/14/19 08:33 Comment 08/13/19 09:35 Intake & Output 08/13/19 08/13/19 08/14/19 11:59 23:59 11:59 Intake Total 480 / 5435.0 4955.0 / 5435.0 892.5 / 892.5 Balance 480 / 5435.0 4955.0 / 5435.0 892.5 / 892.5 Weight 108.2 kg Intake: IV 4215.0 / 4215.0 892.5 / 892.5 Oral 480 / 720 240 / 720 Blood Product 400 / 400 Rbc Leuko Reduced Unit 400 / 400 [id number] Other 100 / 100 Rbc Leuko Reduced Unit 100 / 100 [id number] Other: Urine Color Castro Arial Arial Urine Appearance Hematuria Clear Comment CBI running on full rate. pt tolerating CBI well pt tolerating CBI well. [address] is clamped since start of shift. Stool Occult Blood Negative Stool Size Small Stool Characteristics Soft Formed Data Completed and Pending Labs on day of discharge: Labs from last 24 hours 08/14/19 08/14/19 08/13/19 05:55 05:55 22:03 WBC 6.88 D RBC 2.87 L Hgb 8.8 L 8.9 L Hct 26.7 L 26.4 L MCV 93.0 MCH 30.7 MCHC 33.0 RDW 12.7 Plt Count 151 MPV 8.9 Immature Gran % 0.1 Neutrophils % 62.6 Lymphocytes % 24.3 Monocytes % 11.0 Eosinophils % 1.7 Basophils % 0.3 Absolute Neutrophils 4.31 Absolute Lymphocytes 1.67 Absolute Monocytes 0.76 H Absolute Eosinophils 0.12 Absolute Basophils 0.02 Sodium 145 Potassium 3.9 Chloride 109 H Carbon Dioxide 29.5 Anion Gap 6.5 BUN 15 D Creatinine 0.72 Estimated GFR/1.73 m2 >= 60.00 Glucose 101 Calcium 7.3 L Magnesium 1.8 Troponin I Patient ABO/Rh Antibody Screen Crossmatch 08/13/19 08/13/19 08/13/19 20:00 16:00 14:00 WBC RBC Hgb Cancelled Cancelled Hct Cancelled Cancelled MCV MCH MCHC RDW Plt Count MPV Immature Gran % Neutrophils % Lymphocytes % Monocytes % Eosinophils % Basophils % Absolute Neutrophils Absolute Lymphocytes Absolute Monocytes Absolute Eosinophils Absolute Basophils Sodium Potassium Chloride Carbon Dioxide Anion Gap BUN Creatinine Estimated GFR/1.73 m2 Glucose Calcium Magnesium Troponin I < 0.05 Patient ABO/Rh Antibody Screen Crossmatch 08/13/19 08/13/19 08/13/19 13:32 11:56 09:47 WBC RBC Hgb 9.8 L Hct 29.5 L MCV MCH MCHC RDW Plt Count MPV Immature Gran % Neutrophils % Lymphocytes % Monocytes % Eosinophils % Basophils % Absolute Neutrophils Absolute Lymphocytes Absolute Monocytes Absolute Eosinophils Absolute Basophils Sodium Potassium Chloride Carbon Dioxide Anion Gap BUN Creatinine Estimated GFR/1.73 m2 Glucose Calcium Magnesium Troponin I < 0.05 Patient ABO/Rh A Positive Antibody Screen Negative Crossmatch See Detail 08/13/19 09:47 WBC RBC Hgb 9.8 L Hct 29.2 L MCV MCH MCHC RDW Plt Count MPV Immature Gran % Neutrophils % Lymphocytes % Monocytes % Eosinophils % Basophils % Absolute Neutrophils Absolute Lymphocytes Absolute Monocytes Absolute Eosinophils Absolute Basophils Sodium Potassium Chloride Carbon Dioxide Anion Gap BUN Creatinine Estimated GFR/1.73 m2 Glucose Calcium Magnesium Troponin I Patient ABO/Rh Antibody Screen Crossmatch [facility] Medical History Acne (Inactive) 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 Closed fracture of ankle (Inactive) Facial trauma (Resolved) Head injury (Resolved) History of CVA (cerebrovascular accident) (Resolved) History of CVA (cerebrovascular accident) (Resolved) Hyperlipidemia (Chronic) Osteoarthritis, hip, bilateral (Chronic) Osteoarthritis, knee (Chronic) Postoperative surgical complication involving right eye (Resolved) Surgical History Arthroplasty of knee bilateral Cystoscopy H/O cystoscopy (Resolved) H/O: vasectomy (Resolved) History of arthroscopy of knee (Inactive) History of bilateral knee arthroplasty (Resolved) History of detached retina repair (Resolved) History of excision of Zenker's diverticulum (Inactive 08/14/15) History of tonsillectomy and adenoidectomy (Resolved) History of total right hip arthroplasty (Resolved) Replacement of total knee joint (11/27/16) B/L Status post cystoscopy (Inactive) Status post removal of Zenker's diverticulum (Resolved) surgery done at [facility] Status post tonsillectomy (Inactive) Status post vasectomy (Inactive) Tonsillectomy and adenoidectomy AGE 7 Vasectomy Family History Mother , age 92 Essential hypertension Father , age 69 Neoplasm LUNG AND THROAT Lung cancer Throat cancer Sister No problems noted. Maternal Grandfather , age 72 Colon cancer Son No problems noted. Daughter No problems noted. Daughter No problems noted. Paternal Grandfather No problems noted. Maternal Grandmother No problems noted. Paternal Grandmother No problems noted. Social History Smoking/Tobacco Use Status: Never Alcohol Intake: current Alcohol Intake frequency: 0-2 drinks per day Alcohol type: beer Drug use: Never Substance use type: does not use Caregiver/Support person: No Household members: spouse Housing: house Communication Needs: Hard of Hearing Pets and animals: Yes Pets and animals: dog(s) Sexually active: No Do you think of yourself as: straight/heterosexual Current gender identity: decline to answer What is your relationship status?: How often do you talk on the phone with friends or family?: three or more times per week How often do you get together with friends or relatives?: three or more times per week How often do you attend baptism or restorationist services?: decline to answer Do you belong to any clubs or organized social groups?: yes Panel score (0-1 are the most socially isolated patients): 3 What type of physical activity do you participate in: none Liv/Islam: Jew Special liv needs: No Seatbelt use: always Helmet use: No Drive intox or ride w/intox flatbed truck driver: No Do you feel safe at home: Yes Do you feel safe in your relationship?: Yes
--- NOTE | 2019-08-14 10:23 | PDOC.CMDIS ---
- If Service Date Differs Date of service: 08/14/19 Time of Service: 10:23 LACE Index Scoring Tool - Questions: Length of Stay (in days): 3 Acuity (Admit via E.D.?): No E.D. Visits: 0 - Answers: Total Score: 3 Risk of Readmission: Low Risk Care Management Discharge Reason for Hospitalization: BPT with LUTS Discharge Plan: Adin is being discharged home today he will have the arita in place and follow up with on Friday.Adin states that he does not need any addtional services and feels comfortable going home with the arita. Family will transport home at time of discharge. Patient/Family Education Needs: Discharge education, limitations and follow up plan of care including ask me three and self management.
== END 2019-08-14 10:30 | disposition home or self-care (01) | DRG 713 ==
LOC: PDS 09:03 → MS 13:47 → ICU 08-13 12:06
PROVIDERS: Internal Medicine; Admitting Provider Urology; PCP Family Medicine; Visit Provider Urology
PROC: 0VT08ZZ Resection of Prostate, Via Natural or Artificial Opening Endoscopic (ICD-10-PCS; CPT 52601; principal; 2019-08-12 09:45)
DX: N40.1 Benign prostatic hyperplasia with lower urinary tract symptoms (principal); N13.8 Other obstructive and reflux uropathy; D62 Acute posthemorrhagic anemia; N41.1 Chronic prostatitis; I95.1 Orthostatic hypotension; Y83.8 Other surgical procedures as the cause of abnormal reaction of the patient, or of later complication, without mention of misadventure at the time of the procedure; R55 Syncope and collapse; E78.5 Hyperlipidemia, unspecified; Z96.653 Presence of artificial knee joint, bilateral
CPT/HCPCS: 52601; 36415; 80048; 85027; 86850; 86900; 86901; 86920; 88305; 99255; NC; 83735; 84484; 85014; 85018; 85025; 93005; 93010; 99223; J0131; J0690; J1100; J1580; J1885; J2001; J2250; J2405; J3010; P9016

== ENCOUNTER 2019-08-15 15:31 | Emergency (ER) | payer MEDICARE, BC, SELFPAY ==
[2019-08-15 15:34] VITALS: BP 131/74; PULSE 72; RESP 16; TEMP 36.5; O2SAT 96
[2019-08-15] MEDS: Lidocaine 2% Jelly 6 ML SYR (15:50)
--- NOTE | 2019-08-15 15:56 | ED.GENADUL_ITS ---
Discharge Plan Disposition Patient Disposition: HOME Condition: Stable Discharge Details Chief Complaint: Urinary Clinical Impression: Encounter for Keller catheter replacement Primary Care Provider: Tiago Demarco ED Provider: Evelyne Hamilton Home Meds and New Rx's Prescriptions: Continued acyclovir 400 MG tablet 400 mg PO BID Qty: 180 RF: 4 finasteride 5 mg tablet 5 mg PO HS Qty: 90 RF: 4 simvastatin 40 mg tablet 40 mg PO HS Qty: 90 RF: 4 fluoxetine [Prozac] 20 mg capsule 20 mg PO DAILY Qty: 90 RF: 4 Durezol 0.05 % drops 1 drp Ophthalmic .3 X weekly RF: 0 oxycodone 5 mg capsule 5 mg PO Q6H PRN (Reason: pain) Qty: 12 RF: 0 Discharge Instructions Instructions: Keller Catheter Placement and Care (ED) Additional Instructions: Follow up with primary care provider in 3-5 days. Return to ED sooner if any worsening or concerns. Increase oral fluids. Follow-up with Dr. Cruz as scheduled or sooner if any problems. If any increased bladder fullness or abdominal pain or decreased urinary output and always come back to the ED we are here 27/01. Referrals: Holland Cruz MD [ [facility] STAFF PHYSICIAN] - Tiago Demarco MD [Primary Care Provider] - Discharge Data Discharge Date/Time-TO BE ENTERED AT DEPARTURE: 08/15/19 16:50 Medical Decision Making 1604: At this time RN has replaced Keller catheter noted small amount of grossly bloody hematuria. Instructed to flush Keller to improve output. 1629: Irrigated with additional 60 mils of normal saline, clear pink return. Instructed patient on how to irrigate Keller at home he states he feels comfortable doing that and instructed to keep as sterile as possible. To return if any bladder fullness or decreased urine output. Verbalized understanding. Patient discharged with leg bag and instructed on use by staff nurse midwife. Keller was draining adequately prior to discharge. Did have red urine output, no clots visualized. This text was generated using [employer] system, please disregard any oddities of phrase or misspellings. HPI General Date/Time Provider Initiated Documentation: 08/15/19 15:35 . Information obtained by: patient . HPI Narrative: 68-year-old male status post TURP procedure presents with Keller complaint. States that dog stepped on Keller on Friday afternoon dislodged catheter. At this time RN is replacing the Keller catheter. Grossly bloody return noted very minimal amount, patient does not report any abdominal pressure or bladder pressure. He denies any pain at this moment. Related Data Home Medications Medication Instructions Recorded Confirmed acyclovir 400 mg PO BID #180 tab-cap 05/21/16 08/15/19 finasteride 5 mg tablet 5 mg PO HS #90 tab-cap 06/19/18 08/15/19 fluoxetine 20 mg capsule 20 mg PO DAILY #90 tab-cap 03/11/19 08/15/19 simvastatin 40 mg tablet 40 mg PO HS #90 tab-cap 03/11/19 08/15/19 difluprednate 0.05 % eye drops 1 drp OPHTHALMIC .3 X weekly drp 07/27/19 08/15/19 oxycodone 5 mg PO Q6H PRN #12 cap 08/14/19 08/15/19 Previous Rx's Medication Instructions Recorded finasteride 5 mg tablet 5 mg PO HS #90 tab-cap 06/19/18 fluoxetine 20 mg capsule 20 mg PO DAILY #90 tab-cap 03/11/19 simvastatin 40 mg tablet 40 mg PO HS #90 tab-cap 03/11/19 oxycodone 5 mg PO Q6H PRN #12 cap 08/14/19 Allergies Allergy/AdvReac Type Severity Reaction Status Date / Time Sulfa (Sulfonamide Allergy Mild Unverified 08/15/19 15:42 Antibiotics) General Stated Complaint: Urinary SUSAN: 3 Review of Systems Narrative: Constitutional: Negative for weight loss, alert and oriented, well groomed, normal body habitus, appears comfortable. HEENT: Denies trauma, headaches, blurry vision, nasal discharge, sore throat, trouble swallowing. Chest: Denies chest pain, palpitations, irregular rhythm, hypertension. Respiratory: Denies Shortness of breath, cough, hemoptysis. GI: Denies abdominal pain, nausea, vomiting, diarrhea, constipation. : Denies flank pain, rectal bleeding. Positive Keller in place, gross hematuria noted in Keller output. Neuro: Denies dizziness, blurry vision, weakness, syncope, headache or facial numbness. Hematologic: Denies easy bruising, intolerance to heat or cold, hair loss. 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 Closed fracture of ankle (Inactive) Facial trauma (Resolved) Head injury (Resolved) History of CVA (cerebrovascular accident) (Resolved) History of CVA (cerebrovascular accident) (Resolved) Hyperlipidemia (Chronic) Osteoarthritis, hip, bilateral (Chronic) Osteoarthritis, knee (Chronic) Postoperative surgical complication involving right eye (Resolved) Surgical History Arthroplasty of knee bilateral Cystoscopy H/O cystoscopy (Resolved) H/O: vasectomy (Resolved) History of arthroscopy of knee (Inactive) History of bilateral knee arthroplasty (Resolved) History of detached retina repair (Resolved) History of excision of Zenker's diverticulum (Inactive 08/14/15) History of tonsillectomy and adenoidectomy (Resolved) History of total right hip arthroplasty (Resolved) Replacement of total knee joint (11/27/16) B/L Status post cystoscopy (Inactive) Status post removal of Zenker's diverticulum (Resolved) surgery done at [facility] Status post tonsillectomy (Inactive) Status post vasectomy (Inactive) Tonsillectomy and adenoidectomy AGE 7 Vasectomy Family History Mother , age 92 Essential hypertension Father , age 69 Neoplasm LUNG AND THROAT Lung cancer Throat cancer Sister No problems noted. Maternal Grandfather , age 72 Colon cancer Son No problems noted. Daughter No problems noted. Daughter No problems noted. Paternal Grandfather No problems noted. Maternal Grandmother No problems noted. Paternal Grandmother No problems noted. Social History Smoking/Tobacco Use Status: Never Alcohol Intake: current Alcohol Intake frequency: 0-2 drinks per day Alcohol type: beer Drug use: Never Substance use type: does not use Caregiver/Support person: No Household members: spouse Housing: house Communication Needs: Hard of Hearing Pets and animals: Yes Pets and animals: dog(s) Sexually active: No Do you think of yourself as: straight/heterosexual Current gender identity: decline to answer What is your relationship status?: How often do you talk on the phone with friends or family?: three or more times per week How often do you get together with friends or relatives?: three or more times per week How often do you attend christian or holiness services?: decline to answer Do you belong to any clubs or organized social groups?: yes Panel score (0-1 are the most socially isolated patients): 3 What type of physical activity do you participate in: none Liv/Jehovah'S Witness: Voodoo Special liv needs: No Seatbelt use: always Helmet use: No Drive intox or 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 Appears stated age. Normal body habitus. Head: Normocephalic, no trauma. Eyes: Pupils PERRLA, Red reflex noted, EOM's intact. Eyelids symmetrical withour lesions, discharge, or swelling. ENT: Bilateral TM's WNL, External ear normal to inspection, no mastoid TTP, swelling, or erythema, Nasal turbinates WNL, no nasal discharge. Normal dentition, Posterior pharynx WNL, no exudate. Chest: RRR, Normal S1, S2, distal pulses intact. Resp: Lungs clear to auscultation bilaterally, no wheezes, rales, or rhonchi. Abdomen: Normal to inspection, bowel sounds normoactive in all 4 quadrants, nontender to palpation. : No meatus trauma noted, no bleeding from the external meatus. Does have a Keller catheter in place with grossly hematuria output. Musculoskeletal: Normal gait, 5/5 strength to all four extremities. Skin: No suspicious rashes or lesions. Capillary refill ?2 sec. Neurologic: Cranial nerves II-XII intact. Alert and oriented x 3. DTR's intact. Hematologic/Lymphatic: No ecchymosis, no lymphadenopathy. Course Vital Signs Vital signs: Vital Signs Temperature 36.5 C 08/15/19 15:34 Pulse 72 08/15/19 15:34 Respiratory Rate 16 08/15/19 15:34 Blood Pressure 131/74 08/15/19 15:34 Pulse Oximetry 96 08/15/19 15:34 Temperature 36.5 C 08/15/19 15:34 Temperature Source Temporal Artery Scan 08/15/19 15:34 Pulse 72 08/15/19 15:34 Respiratory Rate 16 08/15/19 15:34 Blood Pressure 131/74 08/15/19 15:34 Pulse Oximetry 96 08/15/19 15:34 Oxygen Delivery Method Room Air 08/15/19 15:34 Oxygen Flow Rate 0 08/15/19 15:34 Pain Level 0 08/15/19 15:34
[2019-08-15 16:48] VITALS: BP 131/74; PULSE 72; RESP 16; TEMP 36.5; O2SAT 96
== END 2019-08-15 16:50 | disposition home or self-care (01) ==
PROVIDERS: Emergency Provider Registered Nurse Emergency; PCP Family Medicine
DX: T83.021A Displacement of indwelling urethral catheter, initial encounter (principal); R33.8 Other retention of urine; R31.0 Gross hematuria; Y83.6 Removal of other organ (partial) (total) as the cause of abnormal reaction of the patient, or of later complication, without mention of misadventure at the time of the procedure
CPT/HCPCS: 51702; 99284

== ENCOUNTER → 2019-08-20 08:11 | Outpatient (BNVA) | payer MEDICARE, BC, SELFPAY | PROVIDERS: PCP Family Medicine; Referring Provider Family Medicine; Visit Provider Urology | DX: N40.1 Benign prostatic hyperplasia with lower urinary tract symptoms (principal); N13.8 Other obstructive and reflux uropathy ==

== ENCOUNTER → 2019-08-27 11:28 | Outpatient (BNVA) | payer MEDICARE, BC, SELFPAY | PROVIDERS: PCP Family Medicine; Referring Provider Family Medicine; Visit Provider Urology | DX: N39.0 Urinary tract infection, site not specified (principal); R82.90 Unspecified abnormal findings in urine | CPT/HCPCS: 81003 ==

== ENCOUNTER 2019-08-27 13:14 | Outpatient (REF) | payer MEDICARE, BC, SELFPAY | END 2019-08-27 13:34 | LOC: LBN 13:14 | PROVIDERS: PCP Family Medicine; Visit Provider Urology | DX: N39.0 Urinary tract infection, site not specified (principal) | CPT/HCPCS: 87086 ==

== ENCOUNTER → 2019-09-03 08:01 | Outpatient (BNVA) | payer MEDICARE, BC, SELFPAY | PROVIDERS: PCP Family Medicine; Referring Provider Family Medicine; Visit Provider Urology | DX: N40.1 Benign prostatic hyperplasia with lower urinary tract symptoms (principal); N13.8 Other obstructive and reflux uropathy; R35.0 Frequency of micturition; R39.11 Hesitancy of micturition ==

== ENCOUNTER 2020-05-18 02:21 | Outpatient (CLI) | payer MEDICARE, BC, SELFPAY ==
[2020-05-18 07:40] LABS: HCT 44.3 % (40.0-50.0); HGB 14.6 g/dL (13.5-17.5); MCV 87.9 fL (80-95); MPV 8.7 fL (8.0-11.0); Platelet Count 195 10^3/uL (130-400); RBC 5.04 10^6/uL (4.36-5.78); RDW 14.5 % (11.8-14.1); RDW-SD 46.5 fL
[2020-05-18 08:29] LABS: ALT 31 U/L (16-63); AST 27 U/L (15-37); Albumin 3.7 g/dL (3.4-5.0); Alkaline Phosphatase 67 U/L (46-116); BUN 22 mg/dL (7-18); Bilirubin, Total 0.7 mg/dL (0.2-1.0); CREATININE 0.98 mg/dL (0.70-1.30); Calcium 8.5 mg/dL (8.5-10.1); Chloride 106 mmol/L (98-107); Glucose 95 mg/dL (74-106); Potassium 4.4 mmol/L (3.5-5.1); Sodium 141 mmol/L (136-145); Total Protein 7.2 g/dL (6.4-8.2)
== END 2020-05-18 02:41 ==
PROVIDERS: PCP Family Medicine; Visit Provider Family Medicine
DX: Z00.00 Encounter for general adult medical examination without abnormal findings (principal); E78.5 Hyperlipidemia, unspecified
CPT/HCPCS: 36415; 80053; 85027

== ENCOUNTER → 2020-07-27 10:23 | Outpatient (BNVA) | payer MEDICARE, BC, SELFPAY | PROVIDERS: PCP Family Medicine; Referring Provider Family Medicine; Visit Provider Physical Therapy Assistant | DX: Z12.11 Encounter for screening for malignant neoplasm of colon (principal); Z80.0 Family history of malignant neoplasm of digestive organs ==

== ENCOUNTER 2020-08-07 12:20 | Day surgery (SDC) | payer MEDICARE, BC, SELFPAY ==
--- NOTE | 2020-08-07 07:02 | COLE_ITS ---
Date of service: 08/07/20 Time of Service: 14:49 Colonoscopy Report Date of procedure: 08/07/20 Pre-op diagnosis general: Colon Cancer Screening and Family history Post-op diagnosis procedure note: same (and diverticulosis) Procedure: Colonoscopy Surgeon: Elizabeth Guerrero Anesthesia proc note operative: other (General/ASA 3/Josemanuel Kay CRNA) Estimated blood loss (mL): 0 Pathology: none sent Complications: None Disposition: same day Indications: The patient is here for Colonoscopy pre-op. His last screening was in 2009, which was unremarkable. He reprots a family history of colon cancer in his maternal grandfather. He has no family history of colon cancer. He has not had any bowel habit changes. -Discussed colonoscopy bowel prep as well as the procedure. Discussed possible complications of the procedure to include bleeding, pain, perforation, missed small lesion/polyp, sore throat, aspiration and adverse reaction to the medications. Questions were answered to patient?s satisfaction. No guarantees were implied or given. Prep: Miralax/Dulcolax Procedure Start Time: 14:49 Procedure End Time: 15:08 Retraction Time: 11 minutes Findings: Diverticulosis of the descending and sigmoid colon Procedure Description: After informed consent was obtained the patient was taken to the procedure room and placed in a left decubitous position. Monitors were applied and a time out was done. The patients name, date of , proc edure, allergies to medications and metal in their body was reviewed. The patient was then sedated. Once sedated and comfortable a rectal exam was done. External exam was normal. Internal exam revealed a normal sphincter tone and no palpable masses. The prostate felt smooth. The scope was then introduced and retro-flexed. No internal hemorrhoids, polyps or masses were identified on retro-flexion. The scope was then advanced to the cecum without difficulty. The ileocecal vlave and appendiceal orifice were identified. The prep was good. The scope was then slowly retracted over 11 minutes back into the rectum. There were no polyps. There was moderate diverticulosis noted of the descending and sigmoid colon. The scope was removed and the patient was woken up and taken back to Same day surgery in stable condition. The patient tolerated the procedure well and there were no immediate complications. Follow up: The patient should follow up in 5 years unless they develop changes in bowel habits or other new gastrointestinal complaints.
--- NOTE | 2020-08-07 07:03 | PDOC.DSDIS_ITS ---
Discharge Plan Disposition Patient Disposition: HOME Condition: Good Discharge Details Reason For Visit: colonoscopy Attending Provider: Elizabeth Guerrero Primary Care Provider: Armaan Hollis Home Meds and New Rx's Prescriptions: Continued aspirin 325 mg tablet 325 mg PO DAILY RF: 0 acyclovir 400 MG tablet 400 mg PO BID Qty: 180 RF: 4 Durezol 0.05 % drops 1 drp Ophthalmic .3 X weekly RF: 0 fluoxetine [Prozac] 20 mg capsule 20 mg PO DAILY Qty: 90 RF: 4 simvastatin 40 mg tablet 40 mg PO HS Qty: 90 RF: 4 Discontinued polyethylene glycol 3350 17 gram/dose powder 238 g PO ONCE Qty: 238 RF: 0 bisacodyl [Dulcolax (bisacodyl)] 5 mg tablet,delayed release (DR/EC) 5 mg PO ONCE Qty: 4 RF: 0 Discharge Instructions Instructions: Diverticulosis (DC) Additional Instructions: Findings: Diverticulosis Follow up: 5 years Please call if you develop: fevers >101.5 Nausea or Vomiting Abdominal pain that is not transient DAY SURGERY UNIT POST ENDOSCOPY INSTRUCTIONS 1. Because there will be medication in your system for the next 24 hours, you may feel a little sleepy. Your coordination will be affected. Therefore: a. Do not drive or operate dangerous equipment for 24 hours. b. Do not drink alcohol beverages for 24 hours (not even beer). c. Plan to go home and rest for the day. 2. Generally there are no restrictions on your activity after a day or so has gone by, but you may feel a bit fatigued for a few days. 3 After you arrive home you may have a light meal and return to a normal diet as you can tolerate it without feeling sick to your stomach. 4. After surgery, you may feel pain or discomfort. This should be only tra nsient, but if it persists please contact your doctor. 5. If there are any questions regarding the findings of your procedure, please feel free to contact your doctor. 6. If you are unable to contact your doctor with a problem, contact the hospital at [phone]. 7. Continue all your regular medications unless directed otherwise. I understand the above instructions and have no questions. Signature of Patient or Responsible Adult Escort Date/Time Name of Responsible Adult Escort Signature of Nurse Date/Time Activity:: Activity as Tolerated Diet:: High Fiber Diet Discharge Orders Discharge Orders: Discharge Order (Routine); Ordered 08/07/20 Ordered By: Elizabeth Guerrero
[2020-08-07 12:25] VITALS: BP 138/94; PULSE 69; RESP 95; TEMP 36.6; O2SAT 95
[2020-08-07] MEDS: Lactated Ringers 1,000 ML 80 ML IV (12:58)
[2020-08-07 15:50] VITALS: BP 139/85; PULSE 63; RESP 18; TEMP 36.3; O2SAT 95
== END 2020-08-07 16:28 | disposition home or self-care (01) ==
LOC: SUR 12:20
PROVIDERS: PCP Family Medicine; Visit Provider Surgery
PROC: 0DJD8ZZ Inspection of Lower Intestinal Tract, Via Natural or Artificial Opening Endoscopic (ICD-10-PCS; CPT 45378; principal; 2020-08-07 14:45)
DX: Z12.11 Encounter for screening for malignant neoplasm of colon (principal); Z80.0 Family history of malignant neoplasm of digestive organs; K57.30 Diverticulosis of large intestine without perforation or abscess without bleeding
CPT/HCPCS: G0105

== ENCOUNTER 2020-12-30 09:41 | Emergency (ER) | payer MEDICARE, BC, SELFPAY ==
[2020-12-30] VITALS (8 sets, daily range): BP systolic 131–160; BP diastolic 82–136; PULSE 60–86; RESP 18–20; TEMP 36–36.8; O2SAT 93–97
--- NOTE | 2020-12-30 10:23 | W.ED.GENAD ---
Discharge Plan Disposition Patient Disposition: HOME Condition: Improving Discharge Details Clinical Impression: Anterior epistaxis Primary Care Provider: None,None ED Provider: Jr Carolina Home Meds and New Rx's Prescriptions: New amoxicillin 875 mg tablet 875 mg PO BID Qty: 6 RF: 0 Continued acyclovir 400 MG tablet 400 mg PO BID Qty: 180 RF: 4 fluoxetine [Prozac] 20 mg capsule 20 mg PO DAILY Qty: 90 RF: 4 simvastatin 40 mg tablet 40 mg PO HS Qty: 90 RF: 4 aspirin 81 mg Tablet 81 mg PO DAILY RF: 0 peg [id number] 1-0.2-0.2 % Drops 2 drp OPHTHALMIC (EYE) BID-QID PRNRF: 0 Discharge Instructions Instructions: Nosebleed (ED) Additional Instructions: Nosebleed was controlled with a left 4.5 cm anterior Rhino Rocket. I feel that with a total of 7 cc of air. Amoxicillin as directed. Please watch for new or worsening symptoms and return to the ER for any concerns. I do recommend returning to the ER Friday afternoon to have the Rhino Rocket removed. I also recommend reaching out to ENT on Friday to discuss your recurrent nosebleeds and need for outpatient reevaluation. Referrals: Ross King DO [OSTEOPATHIC DOCTOR] - Discharge Data Discharge Date/Time-TO BE ENTERED AT DEPARTURE: 12/30/20 11:07 Medical Decision Making 70-year-old gentleman, presents for epistasis, multiple over the past week, now the swelling prolonged over the past hour. Initially he has blood coming out of both nostrils but after having him clear his nasal passage, bleeding is only from the left side. I cannot see an obvious source. There is no active bleeding in the oropharynx, likely anterior source. We will place a 4.5 cm anterior Rhino Rocket and reassess Rhino Rocket placed without difficulty, a total of 7 cc of air applied. Hemostasis obtained Patient was observed in the ER for over an hour, no signs of additional bleeding. He remained hemodynamically stable. Will provide prescription for amoxicillin twice daily for the next 3 days, instructed to return to the ER on Friday to have the Rhino Rocket removed, and his plan is to contact his ENT team as he has had a deviated septum in the past. He will contact Dr. King on Friday. Patient and family are comfortable this plan and have no additional questions or concerns. Standard discharge and return precautions Medical Records Medical records reviewed: Yes I reviewed the patient's medical records. HPI General Mode of arrival: ambulatory. Date/Time Provider Initiated Documentation: 12/30/20 09:42. Limitations to Documentation: no limitations. Information obtained by: patient and family. HPI Narrative: This is a 70-year-old male, past medical history that includes CVA, hyperlipidemia, osteoarthritis, takes a baby aspirin daily but no other anticoagulation, presenting for a left-sided nosebleed that began roughly 1 hour ago. He states that over the last week he has had 4 or 5 small nosebleeds from his left nostril but about 1 hour ago. Patient states that he does suffer from seasonal allergies. He attempted to pinch his nose for about 20 minutes but the bleeding did not stop. Now appears to be coming out both of his nostrils and he is getting some down the back of his throat. He denies headache, recent illness or trauma, chest pain, shortness of breath, numbness, tingling, weakness, easy bruising or bleeding, hematuria, black tarry stools or bright red blood in his stools. Related Data Home Medications Medication Instructions Recorded Confirmed acyclovir 400 mg PO BID #180 tab-cap 05/21/16 12/30/20 fluoxetine 20 mg capsule 20 mg PO DAILY #90 tab-cap 01/10/20 12/30/20 simvastatin 40 mg tablet 40 mg PO HS #90 tab-cap 05/24/20 12/30/20 amoxicillin 875 mg PO BID #6 tab 12/30/20 aspirin 81 mg PO DAILY 12/30/20 12/30/20 peg [id number] 2 drp OPHTHALMIC (EYE) BID-QID PRN 12/30/20 12/30/20 Previous Rx's Medication Instructions Recorded fluoxetine 20 mg capsule 20 mg PO DAILY #90 tab-cap 01/10/20 simvastatin 40 mg tablet 40 mg PO HS #90 tab-cap 05/24/20 amoxicillin 875 mg PO BID #6 tab 12/30/20 Allergies Allergy/AdvReac Type Severity Reaction Status Date / Time Sulfa (Sulfonamide Allergy Mild Unverified 12/30/20 09:53 Antibiotics) General Stated Complaint: Epistaxis SUSAN: 2 Review of Systems Constitutional Constitutional: Denies fatigue and Denies headache(s) ENT Ears, Nose, Mouth, and Throat: Denies headache(s) and Reports epistaxis Cardiovascular Cardiovascular: Denies chest pain and Denies dyspnea Respiratory Respiratory: Denies dyspnea Neurologic Neurologic: Denies headache(s) Endocrine Endocrine: Denies fatigue Hematologic/Lymphatic Hematologic/Lymphatic: Denies easy bleeding and Denies easy bruising 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 Closed fracture of ankle Facial trauma Head injury 2019-fell on ice f/u with neurology History of CVA (cerebrovascular accident) Hyperlipidemia Osteoarthritis, hip, bilateral Osteoarthritis, knee Postoperative surgical complication involving right eye Surgical History Arthroplasty of knee bilateral Cystoscopy H/O cystoscopy H/O: vasectomy History of arthroscopy of knee History of bilateral knee arthroplasty History of detached retina repair History of excision of Zenker's diverticulum (08/14/15) History of tonsillectomy and adenoidectomy History of total right hip arthroplasty Replacement of total knee joint (11/27/16) B/L Status post cystoscopy Status post removal of Zenker's diverticulum surgery done at [facility] Status post tonsillectomy Status post vasectomy Tonsillectomy and adenoidectomy AGE 7 Vasectomy Family History Mother , age 92 Essential hypertension Father , age 69 Neoplasm LUNG AND THROAT Lung cancer Throat cancer Sister No problems noted. Maternal Grandfather , age 72 Colon cancer Son No problems noted. Daughter No problems noted. Daughter No problems noted. Paternal Grandfather No problems noted. Maternal Grandmother No problems noted. Paternal Grandmother No problems noted. Social History Smoking/Tobacco Use Status: Never Smoking risk assessment performed?: Yes Alcohol Intake: current Alcohol Intake frequency: 0-2 drinks per day Alcohol type: beer Drug use: Never Substance use type: does not use Caregiver/Support person: No Household members: spouse Housing: house Communication Needs: Hard of Hearing Pets and animals: Yes Pets and animals: dog(s) Sexually active: No Do you think of yourself as: straight/heterosexual Current gender identity: decline to answer What is your relationship status?: How often do you talk on the phone with friends or family?: three or more times per week How often do you get together with friends or relatives?: three or more times per week How often do you attend taoist or samaritan services?: decline to answer Do you belong to any clubs or organized social groups?: yes Panel score (0-1 are the most socially isolated patients): 3 What type of physical activity do you participate in: none Liv/Christian: Episcopal Special liv needs: No Seatbelt use: always Helmet use: No Drive intox or ride w/intox 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 Do you feel safe at home: Yes Do you feel safe in your relationship?: Yes Exam Const General: cooperative, healthy appearing, comfortable, no acute distress and anxious Orientation: alert and awake [facility] Head: normal to inspection, normocephalic and atraumatic General nose exam: external nose normal and epistaxis bilaterally anterior source, active bleeding and source not visualized Face and sinus: normal facial exam Mouth: moist mucous membranes Throat: other (Posterior oropharynx dried blood) Eyes Conjunctivae: conjunctivae normal Neck Neck: normal visual inspection, full ROM, trachea midline and supple Resp Effort & Inspection: normal respiratory effort and able to speak in complete sentences Auscultation: clear to auscultation bilaterally Cardio Rate: regular rate Rhythm: regular rhythm Skin General skin exam: no rashes or lesions noted Neuro General: patient alert, patient awake, moves all extremities and no focal motor deficits Sensory Exam: no sensory deficits noted Psych Appearance: grossly normal Mental Status: mental status grossly normal Course Vital Signs Vital signs: Vital Signs Temperature 36 C L 12/30/20 09:51 Pulse 86 12/30/20 09:51 Respiratory Rate 20 12/30/20 09:51 Blood Pressure 136/107 H 12/30/20 09:51 Pulse Oximetry 93 12/30/20 09:51 Temperature 36.8 C 12/30/20 10:13 Temperature Source Skin 12/30/20 10:13 Pulse 60 12/30/20 10:13 Respiratory Rate 18 12/30/20 10:13 Respiratory Effort Non-Labored 12/30/20 09:56 Blood Pressure 136/82 12/30/20 10:16 Blood Pressure Position Sitting 12/30/20 09:51 Pulse Oximetry 97 12/30/20 10:13 Oxygen Delivery Method Room Air 12/30/20 10:13 Oxygen Flow Rate 0 12/30/20 10:13 Procedures Epistaxis Control Time Out Performed: Yes Nostril: left Direct Inspection: unable to visualize Clots Removed by: blowing nose Cautery Used: none Device Inserted: nasal tampon (4.5 cm Rhino Rocket) Patient Tolerated Procedure: well Complications: continued epistaxis, nasal trauma, pain and syncope
--- NOTE | 2021-01-01 10:22 | NUR.NOTE ---
Nursing Note: faxed referral to ENT
== END 2020-12-30 11:07 | disposition home or self-care (01) ==
PROVIDERS: Emergency Provider Physician Assistant
DX: R04.0 Epistaxis (principal)
CPT/HCPCS: 30901

== ENCOUNTER 2021-05-25 03:45 | Outpatient (CLI) | payer MEDICARE, BC, SELFPAY ==
[2021-05-25 10:35] LABS: Hemoglobin A1C 5.6 % (<5.7)
[2021-05-25 10:54] LABS: Anion Gap 8.5 mmol/L (3-11); BUN 18 mg/dL (7-18); CO2 29.5 mmol/L (21.0-32.0); CREATININE 0.8 mg/dL (0.70-1.30); Calcium 8.8 mg/dL (8.5-10.1); Calculated LDL 87 mg/dL (<100); Chloride 106 mmol/L (98-107); Cholesterol 155 mg/dL (<200); Glucose 92 mg/dL (74-106); HDL Cholesterol 60 mg/dL (40-60); Potassium 4.8 mmol/L (3.5-5.1); Sodium 144 mmol/L (136-145); Triglyceride 41 mg/dL (<150)
== END 2021-05-25 03:46 | disposition home or self-care (01) ==
LOC: LBO 03:45
PROVIDERS: PCP Family Medicine; Visit Provider Family Medicine
DX: E78.5 Hyperlipidemia, unspecified (principal); R73.01 Impaired fasting glucose; I10 Essential (primary) hypertension; E66.9 Obesity, unspecified; Z00.00 Encounter for general adult medical examination without abnormal findings
CPT/HCPCS: 36415; 80048; 80061; 83036

== ENCOUNTER 2021-09-19 01:28 | Outpatient (CLI) | payer MEDICARE, BC, SELFPAY ==
--- NOTE | 2021-09-19 06:15 | DI.CT_ITS ---
Exam(s) CT ABDOMEN PELVIS W EXAM: CT ABDOMEN PELVIS W CLINICAL HISTORY: L sided abd pain,LT FLANK PAIN,R10.9. TECHNIQUE: Imaging Protocol: Axial computed tomography images with coronal and sagittal reformatted images were created and reviewed CONTRAST MATERIAL: Intravenous: Omnipaque 100cc Oral: Yes. Oral contrast was administered for bowel opacification. COMPARISON: CT CTA THORAX from 09/17/2016 FINDINGS: VISUALIZED LUNG BASES: No nodules nor pleural effusions evident. Right hemidiaphragm is again noted be elevated. There is again noted interposition of otherwise normal-appearing small and large bowel loops between the right hepatic lobe and diaphragm. There does not appear to be an actual diaphragma tic hernia on this side. There is atelectasis of the adjacent lung tissue directly over the elevated hemidiaphragm. ABDOMEN: There is no ascites. LIVER: There are no focal hepatic lesions evident . GALLBLADDER/BILIARY: No obvious gallbladder pathology. CBD is not dilated. PANCREAS: No evidence of pancreatic mass nor dilatation of the pancreatic duct. SPLEEN: Spleen is not enlarged. No obvious intrasplenic lesions. A splenule medial to the spleen is unchanged from the prior study. The splenic and portal veins are patent ADRENALS: There are no significant adrenal masses. KIDNEYS:No cysts evident. No solid renal masses. No calculi nor hydronephrosis.. ABDOMINAL AORTA: Abdominal aorta is not enlarged. LYMPH NODES:There is no retroperitoneal nor paraaortic adenopathy. ABDOMINAL WALL: No evidence of significant anterior abdominal wall nor inguinal hernia. GI: There is no evidence of bowel obstruction, free air, nor abscess. PELVIS: GI: No evidence of appendicitis.No evidence of sigmoid diverticulitis. LYMPH NODES: There is no intrapelvic nor inguinal adenopathy. REPRODUCTIVE: Prostate gland is partially obscured by beam hardening artifact from right hip prosthes is. However, it does not appear grossly enlarged. URINARY BLADDER: Partially obscured by beam hardening artifact from right hip prosthesis. Urinary bl adder is not distended. There are no calculi ureterovesical junctions. OSSEOUS: No significant osseous lesions. Right hip prosthesis. Sacroiliac joints unremarkable. Degenerative disc disease in the lower lumbar spine. No listhesis IMPRESSION: 1. There is an elevated right hemidiaphragm which was evident on a prior chest CT scan of September 2016. Below this right elevated right hemidiaphragm are non edematous and nonobstructed small and large b owel loops interposed between the elevated right hemidiaphragm and right hepatic lobe, similar to the prior study. There is no bowel obstruction at this level nor elsewhere. The elevated right hemidia phragm does not exhibit an obvious diaphragmatic defect to suggest the presence of a diaphragmatic he rnia. There is mild atelectasis of the right lung base tissue above the plated right hemidiaphragm a gain noted. No pleural effusion. 2. No acute findings in the abdomen and pelvis. 3. Right hip prosthesis is noted. 4. RADIATION DOSE DELIVERED: 1,543.98mGy.cm Total DLP DATA REPOSITORY: All CT scans at this facility are submitted to the National Radiology Data Registry (NRDR) Dose Index Registry (DIR) with the [employer] (A[employer]). RADIATION OPTIMIZATION: All CT scans at this facility use at least one of these dose optimization te chniques: automated exposure control; mA and/or kV adjustment per patient size (includes targeted exa ms where dose is matched to clinical indication); or iterative reconstruction.
[2021-09-19] MEDS: Omnipaque 350 MG/ML 50 ML BTL PO (08:45)
[2021-09-19] MEDS: Breeza Beverage 473 ML BTL 976 ML PO (08:45)
[2021-09-19] MEDS: Normal Saline Flush 10 ML SYR IVP (09:34)
[2021-09-19] MEDS: Omnipaque 350 MG/ML 100 ML BTL IJ (09:35)
== END 2021-09-19 01:48 ==
PROVIDERS: PCP Family Medicine; Visit Provider Family Medicine
DX: R10.9 Unspecified abdominal pain (principal); J98.6 Disorders of diaphragm
CPT/HCPCS: 74177; 82565; J3490; Q9967

== ENCOUNTER 2023-01-08 11:42 | Outpatient (CLI) | payer MEDICARE, BC, SELFPAY ==
--- NOTE | 2023-01-08 11:30 | RT.EKG_ITS ---
APPROVED REPORT Exam: Resting ECG Reason for Exam: Patient complains of vertigo-like symptoms w/ fall Patient Location: O HR:59 bpm ECG Measurements Heart Rate 59 AXIS KS 157 P -13 QRSd 107 QRS -32 QT 439 T 32 QTc 435 Conclusion Sinus rhythm...normal P axis, V-rate 50- 99 Incomplete RBBB and LAFB...axis(240,-40), S>R II III aVF Abnormal R-wave progression, early transition...QRS area>0 in V2
== END 2023-01-08 11:43 | disposition home or self-care (01) ==
LOC: DI.CM 11:43
PROVIDERS: PCP Family Medicine; Visit Provider Family Medicine
DX: R42 Dizziness and giddiness (principal)
CPT/HCPCS: 93010

== ENCOUNTER 2023-01-10 01:19 | Outpatient (CLI) | payer MEDICARE, BC, SELFPAY ==
--- NOTE | 2023-01-10 07:00 | DI.CT_ITS ---
Exam(s) CT HEAD WO EXAM: CT HEAD WO CLINICAL HISTORY: accidental falls, NEAR SYNCOPE, RECURRENT FALLS, R55, R29.6. TECHNIQUE: Imaging Protocol: Axial computed tomography images with coronal and sagittal reformatted images were created and reviewed COMPARISON: CT CT HEAD WO from 07/31/2018 FINDINGS: Ventricles and Extra axial spaces: Normal in size and morphology for the patient's age. Hemorrhage: None. Cerebral parenchyma: Lateral view. No evidence of infarct or mass. Midline shift: None. Brainstem/Cerebellum: Normal. Calvarium: Normal. Visualized Paranasal sinuses/Mastoids: Clear. Soft Tissues: Unremarkable. IMPRESSION: No acute intracranial process. RADIATION DOSE DELIVERED: 865.41mGy.cm Total DLP DATA REPOSITORY: All CT scans at this facility are submitted to the National Radiology Data Registry (NRDR) Dose Index Registry (DIR) with the [employer] (ACR). RADIATION OPTIMIZATION: All CT scans at this facility use at least one of these dose optimization te chniques: automated exposure control; mA and/or kV adjustment per patient size (includes targeted exa ms where dose is matched to clinical indication); or iterative reconstruction.
== END 2023-01-10 01:39 ==
LOC: DI 01:20
PROVIDERS: PCP Family Medicine; Visit Provider Family Medicine
DX: R29.6 Repeated falls (principal); R55 Syncope and collapse
CPT/HCPCS: 70450

== ENCOUNTER 2023-01-13 12:42 | Outpatient (CLI) | payer MEDICARE, BC, SELFPAY | END 2023-01-13 12:43 | disposition home or self-care (01) | PROVIDERS: PCP Family Medicine; Visit Provider Family Medicine | DX: R55 Syncope and collapse (principal) | CPT/HCPCS: 93270 ==

== ENCOUNTER 2023-02-06 08:27 | Outpatient (CLI) | payer MEDICARE, BC, SELFPAY ==
--- NOTE | 2023-02-06 08:15 | RT.EKG_ITS ---
APPROVED REPORT Exam: Resting ECG Reason for Exam: PVC's Patient Location: O HR:60 bpm ECG Measurements Heart Rate 60 AXIS WI 154 P 53 QRSd 114 QRS -34 QT 422 T 15 QTc 422 Conclusion Sinus rhythm...normal P axis, V-rate 50- 99 Incomplete RBBB and LAFB...axis(240,-40), S>R II III aVF Baseline wander in lead(s) V6
== END 2023-02-06 08:28 | disposition home or self-care (01) ==
LOC: DI.CARD 08:30
PROVIDERS: PCP Family Medicine; Visit Provider Internal Medicine Cardiovascular Disease
DX: I49.3 Ventricular premature depolarization
CPT/HCPCS: 93010

== ENCOUNTER → 2023-02-06 11:13 | Outpatient (BNVA) | payer MEDICARE, BC, SELFPAY | PROVIDERS: PCP Family Medicine; Referring Provider Family Medicine; Visit Provider Internal Medicine Cardiovascular Disease | DX: I47.29 Other ventricular tachycardia (principal); E78.5 Hyperlipidemia, unspecified; I10 Essential (primary) hypertension | CPT/HCPCS: 93005; 99203; 99213 ==

== ENCOUNTER 2023-02-17 08:24 | Outpatient (CLI) | payer MEDICARE, BC, SELFPAY ==
--- NOTE | 2023-02-17 09:24 | W.CARDEVENT ---
Date of service: 02/17/23 Time of Service: 09:25 Cardiac Event Recorder Referring Provider:: Monika Jesus Indications:: Syncope Cardiac Event Note: This is a cardiac event monitor ordered for syncope. Patient was monitored for 28 days and 10 hours Predominant rhythm was sinus with an average heart rate of 65. Minimum was 45, maximum was 117 There were rare ventricular ectopic beats. There were 2 runs of nonsustained ventricular tachycardia. One was 6 beats in duration, the other 12 beats There was no atrial fibrillation, no high-grade AV block, no pauses greater than 3 seconds There were no apparent patient symptoms
== END 2023-02-17 08:25 | disposition home or self-care (01) ==
LOC: CARDOPNVT 08:24
PROVIDERS: PCP Family Medicine; Visit Provider Internal Medicine Cardiovascular Disease
DX: R55 Syncope and collapse (principal); I47.20 Ventricular tachycardia, unspecified
CPT/HCPCS: 93272

== ENCOUNTER → 2023-02-27 00:56 | Outpatient (CLI) | payer MEDICARE, BC, SELFPAY ==
--- NOTE | 2023-02-27 07:30 | DI.NM_ITS ---
APPROVED REPORT Exam: Pharmacologic Patient Location: Out-Patient Room/Bed: Stress Nurse: Sujatha Tellez RN Ordering Provider:VALERIE BRITT, Contact Number: [phone] BMI: 29.52 Baseline Rhythm: Sinus Bradycardia Comment: Incomplete RBBB, PVC's Indications: Ventricular Tachycardia, Abnormal EKG Medical History Medical History: VTACH, HLD, Impaired fastin glucose, HTN, Depression, cardiac arrhythmia, head injur y, retinal detachment, elevated right diaphragm Cardiac Medications: Simvastatin, fluoxetine, Aspirin Allergies: Sulfa Cardiac Risk Factors: +family history, HTN, HLD, elevated right diaphragm Previous Cardiac Procedures: None Pretest Chest Pain Characteristics: None Exercise History: Indeterminate Physical Disabilities: None Lung Sounds: Right lung dim. in base, otherwise clear throughout all moore Heart Sounds: Regular, distant Stress Test Details Test: Pharmacologic stress testing performed using 0.4 mg of regadenoson per 5 mL given IV over 10 s econds. Reason for pharmacologic stress test: too much artifact to read 12 lead during test when exercise a ttempted. Nuclear Acquisition: Rest Tc-99m/Stress Tc-99m 1 day Rest Isotope: Tc-99m Sestamibi. Dose: 11.0 Date: 02/27/2023 Injection Time: 09:25 Stress Isotope: Tc-99m Sestamibi. Dose: 32.0 Date: 02/27/2023 Injection Time: 11:20 HR Resting HR Supine: 59 bpm Max Heart Rate (APMHR): 149.212574 bpm Resting HR Standin bpm Target HR (85% APMHR): 126.574004 bpm Max HR Achieved: 81 bpm % of APMHR: 54.36 Recovery HR: 62 bpm BP Resting BP Supine: 154/86 mmHg Resting BP Standin/100 mmHg Max BP: 160/100 mmHg Recovery BP: 148/82 mmHg ECG Resting ECG: Sinus Rhythm, Incomplete RBBB Ectopy: PVC's Stress ECG: Sinus Rhythm, Incomplete RBBB ST Change: No significant ST segment changes noted Arrhythmia: PVC's, Rare PAC Recovery ECG: Sinus Rhythm Recovery ST Change: No significant ST segment changes noted Recovery Arrhythmia: None Clinical Stress Symptoms: None Rate Pressure Product: [id number] Stress ECG Conclusion 1. Electrocardiogram showed sinus rhythm, IVCD 2. Testing was accomplished using pharmacologic stress with regadenoson 3. Peak heart rate achieved was 54% of predicted for age 4. The electrocardiographic portion of the test was nondiagnostic 5. See MPI report Stress Test Summary STAGE Time (mins) Speed (mph) Grade (%) HR BP SpO2 SYMPTOMS METS Supine 59 154/86 Standing 61 154/100 1 3 1.7 10 78 4.5 1 min post Lexiscan injection 74 160/100 3 min post Lexiscan injection 66 150/82 6 min post Lexiscan injection 62 148/82 MPI Conclusion Myocardial perfusion is normal. There is no ischemia or evidence of prior infarction Ejection fraction is 56% with normal wall motion Radiologist Interpretation Radiologist agrees with Scrap Worker's Interpretation. Radiologist Interpretation by: Yon Delgado MD Interpretation Date/Time: 02/27/2023 18:46:20
[2023-02-27] MEDS: Regadenoson 0.4 MG/5 ML SYR IVP (11:44)
== END ==
PROVIDERS: PCP Family Medicine; Visit Provider Internal Medicine Cardiovascular Disease
DX: I47.20 Ventricular tachycardia, unspecified (principal); R94.31 Abnormal electrocardiogram [ECG] [EKG]
CPT/HCPCS: 78452; 93016; 93018; 93017; J2785

== ENCOUNTER 2023-04-23 10:10 | Emergency (ER) | payer MEDICARE, BC, SELFPAY ==
[2023-04-23] VITALS (7 sets, daily range): BP systolic 151–196; BP diastolic 95–110; PULSE 62–84; RESP 11–18; TEMP 37.3; O2SAT 92–95
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
== END 2023-04-23 11:50 | disposition home or self-care (01) ==
PROVIDERS: Emergency Provider Emergency Medicine; PCP Family Medicine
DX: Z77.098 Contact with and (suspected) exposure to other hazardous, chiefly nonmedicinal, chemicals (principal); Z09 Encounter for follow-up examination after completed treatment for conditions other than malignant neoplasm
CPT/HCPCS: 99281; 99282

== ENCOUNTER → 2023-05-06 01:01 | Outpatient (CLI) | payer MEDICARE, BC, SELFPAY ==
--- NOTE | 2023-05-06 06:45 | DI.US_ITS ---
APPROVED REPORT EXAM: Comprehensive 2D, Doppler, and color-flow Echocardiogram Patient Location: Out-Patient Professor Of Violin: Sera Burnett RDCS (AE) Indications: Check LV function, Nonsustained ventricular tachycardia Other Information Study Quality: Fair. Technically limited study due to body habitus right side diaphragm abnormality. LImited imaging windows available. . Conclusion Normal left ventricular wall thickness and chamber size. Ejection fraction is 55%. Wall motion is n ormal Normal right ventricular size and systolic function Both atria are normal in size There is no structural or hemodynamically significant valvular disease Wall motion Left Ventricle The left ventricle is normal size. The overall left ventricular systolic function appears normal. The re is normal left ventricular wall thickness. There is normal LV segmental wall motion. LVEF is 55%. Right Ventricle The right ventricle is normal size. The right ventricular systolic function is normal. Atria The left atrium size is grossly normal. The right atrium size is grossly normal. Aortic Valve The aortic valve is normal in structure. Aortic valve is trileaflet. There is no aortic valvular sten osis. No aortic regurgitation is present. Mitral Valve The mitral valve is normal in structure. No evidence of mitral valve stenosis. Trace mitral regurgita tion. Tricuspid Valve The tricuspid valve is normal in structure. There is no tricuspid valve stenosis. There is no tricusp id valve regurgitation noted. Pulmonic Valve Pulmonic valve is not well visualized. There is no pulmonic valvular stenosis. There is no pulmonic v alvular regurgitation. Great Vessels The aortic root is normal in size. Ascending aorta is not well visualized. Technically limited subcos cuauhtemoc exam. The IVC was not visualized. Pericardium Technically limited subcostal imaging. 2D Dimensions IVSD d PLAX 1.16 cm M: 0.6-1.2 Ao Root d 3.21 cm M: 3.1 - 3.7 LVPW d PLAX 1.25 cm M: 0.6 - 1.2 LVID d PLAX 5.37 cm M: 4.2 - 5.8 LVDs 3.80 cm M: 2.5 - 4.0 LV EF Teichholz 55.5 % FS 29.14 % LV EDV (Teich) 139.3 mL LV ESV (Teich) 62.0 mL Auto EF LV EDV A4C 142.0 mL LV EDV A2C 146.3 mL LV EDV BP 151.0 mL LV ESV A4C 63.5 mL LV ESV A2C 67.0 mL LV ESV BP 64.8 mL LVEF(%) A4C 55.3 % LVEF(%) A2C 54.2 % LVEF(%) BP 57.1 % LV SV A4C 78.5 ml LV SV A2C 79.2 ml LV SV BP 86.2 ml LV CO A4C 4.7 L/min LV CO A2C 4.9 L/min LV CO BP 4.8 L/min HR A4C 59.88 BPM HR A2C 61.23 BPM LV EDV Index (BP) LV Diastology MV E' medial 0.053 (>0.07 m/s) MV E Vmax 0.72 (0.4-1.3 m/s) MV E/E' MED 13.76 (<14) MV A Vmax 1.05 (0.4-1.3 m/s) MV E' lateral 0.060 (>0.1 m/s) E/A Ratio 0.7 MV E/E' LAT 12.11 (<14) MV E' Average 0.056 m/s MV E/E'(average) 12.88 Aortic Valve AoV Vmax 1.45 m/s LVOT Vmax 1.20 m/s AoV Peak Grad 8.4 mmHg LVOT Peak Grad 5.7 mmHg AoV Area (Vmax) 2.69 cm2 LVOT VTI 0.267 m AoV VTI 0.324 m LVOT Mean Grad 3.1 mmHg AoV Mean Miky. 1.00 m/s LVOT SV 86.95 mL AoV Mean Grad 4.6 mmHg LVOT Diam s 2.00 cm AoV Area (VTI) 2.68 cm2 Velocity Ratio 0.83 Mitral Valve MV DT 409 (160-240 msec) MV Vmax TIPS 0.94 m/s MV Mean Grad 1.2 (<2mmHg) MV VTI 0.392 m Pulmonary Valve PV Vmax 0.62 (0.5-1.5 m/s) RVOT Vmax 0.50 m/s PV Peak Grad 1.5 mmHg RVOT Peak Gr. 1.0 mmHg PV Mean Miky 0.50 m/s RVOT VTI 0.121 m PV Mean Grad 1.1 mmHg RVOT Mean Gr. 0.6 mmHg Tricuspid Valve TV S' 0.16 m/s
== END ==
PROVIDERS: PCP Family Medicine; Visit Provider Internal Medicine Cardiovascular Disease
DX: I45.4 Nonspecific intraventricular block (principal); I47.29 Other ventricular tachycardia
CPT/HCPCS: 93306

== ENCOUNTER → 2023-05-13 09:07 | Outpatient (BNVA) | payer MEDICARE, BC, SELFPAY | PROVIDERS: PCP Family Medicine; Referring Provider Family Medicine; Visit Provider Internal Medicine Cardiovascular Disease | DX: I47.29 Other ventricular tachycardia (principal) | CPT/HCPCS: 99212 ==

== ENCOUNTER → 2023-08-29 10:29 | Outpatient (CLI) | payer MEDICARE, BC, SELFPAY ==
--- NOTE | 2023-08-29 10:00 | DI.RAD_ITS ---
Exam(s) XR FOOT LT COMPLETE EXAM: XR FOOT LT COMPLETE CLINICAL HISTORY: Foot pain, M79.673, R/O bone spur on calcaneus bone. TECHNIQUE: 2D digital imaging was performed of the left foot. Three images were obtained. AP, obli que and lateral views were obtained. COMPARISON: No exams were available for comparison FINDINGS: BONES: No acute fracture is present. No bony destructive lesion is seen. There is a small plantar zaida caneal spur. Sideplate and screws are seen in the distal fibula. JOINTS: No dislocation present. SOFT TISSUE: Vascular calcifications are present. IMPRESSION: There is a tiny plantar calcaneal bone spur. DATA REPOSITORY: RADIATION DOSE DELIVERED:
== END ==
PROVIDERS: PCP Family Medicine; Visit Provider Nurse Practitioner Family
DX: M79.672 Pain in left foot (principal); M77.32 Calcaneal spur, left foot
CPT/HCPCS: 73630

== ENCOUNTER 2024-10-06 09:55 | Outpatient (CLI) | payer MEDICARE, BC, SELFPAY ==
[2024-10-06 09:28] LABS: Anion Gap 7.9 mmol/L (3-11); BUN 19 mg/dL (7-18); CO2 31.1 mmol/L (21.0-32.0); CREATININE 1.1 mg/dL (0.70-1.30); Calcium 8.9 mg/dL (8.5-10.1); Calculated LDL 84 mg/dL (<100); Chloride 106 mmol/L (98-107); Cholesterol 160 mg/dL (<200); Estimated GFR 71.32 (mL/min/1.73m2); Glucose 100 mg/dL (74-106); HDL Cholesterol 63 mg/dL (>or=40); Potassium 4.8 mmol/L (3.5-5.1); Sodium 145 mmol/L (136-145); Triglyceride 65 mg/dL (<150)
[2024-10-06 18:53] LABS: PSA, Screening 0.6 ng/mL (<=6.5)
[2024-10-07 10:30] LABS: Hepatitis C Ab w Rflx HCV PCR Negative (Negative)
== END 2024-10-06 09:56 | disposition home or self-care (01) ==
LOC: LBO 09:56
PROVIDERS: PCP Family Medicine; Visit Provider Family Medicine
DX: Z13.6 Encounter for screening for cardiovascular disorders (principal); Z13.1 Encounter for screening for diabetes mellitus; Z11.59 Encounter for screening for other viral diseases; Z12.5 Encounter for screening for malignant neoplasm of prostate
CPT/HCPCS: 36415; 80048; 80061; 84153; 86803

== ENCOUNTER 2025-01-09 18:29 | Emergency (ER) | payer MEDICARE, BC, SELFPAY ==
[2025-01-09 18:36] VITALS: BP 124/80; PULSE 79; RESP 18; TEMP 36.8; O2SAT 93
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
[2025-01-09] MEDS: Lidocaine/Epinephri/Tetracaine Topical Gel 3 ML TP (19:03)
[2025-01-09] MEDS: Diph,Pertuss(Acell),Tet Vac/Pf 0.5 ML SYR IM (19:57)
[2025-01-09] MEDS: Lidocaine 2% Multi-Dose 20 ML VIAL IJ (19:58)
== END 2025-01-09 20:36 | disposition home or self-care (01) ==
PROVIDERS: Emergency Provider Nurse Practitioner Family; PCP Family Medicine
DX: S61.216A Laceration without foreign body of right little finger without damage to nail, initial encounter (principal); W26.8XXA Contact with other sharp object(s), not elsewhere classified, initial encounter; Y93.89 Activity, other specified; Z23 Encounter for immunization
CPT/HCPCS: 12001; 90471; 90715; 99283; J2003

== ENCOUNTER 2025-01-18 13:05 | Emergency (ER) | payer MEDICARE, BC, SELFPAY ==
[2025-01-18 13:09] VITALS: BP 129/82; PULSE 70; RESP 20; TEMP 36.6; O2SAT 92
--- NOTE | 2025-01-18 13:14 | W.ED.GENAD ---
Discharge Plan Disposition Patient Disposition: Home Condition: Stable Discharge Details Clinical Impression: Encounter for removal of sutures Primary Care Provider: Monika Jesus ED Provider: Nolvia Abdalla Home Meds and New Rx's Prescriptions: No Action acyclovir 400 MG tablet 400 mg PO BID Qty: 180 Rx Instructions: Prescribed by [facility] [facility] simvastatin 40 mg tablet 40 mg PO HS Qty: 90 3RF fluoxetine 20 mg capsule 20 mg PO DAILY Qty: 90 3RF aspirin 81 mg Tablet 81 mg PO DAILY Discharge Instructions Instructions: Stitches Removal Additional Instructions: You were seen in the emergency department today for removal of stitches. This was performed in our triage area, and your cut appears to be healing very well. You can continue to cover it with a dressing if needed, and can consider using [id number] topical antibiotic ointment. Tylenol and ibuprofen can be used as needed for ongoing pain. Please follow-up with your primary care provider in the next few days to discuss this visit and any symptoms that change, worsen, or persist. Thank you for allowing us to be part of your care. Discharge Data Discharge Date/Time-TO BE ENTERED AT DEPARTURE: 01/18/25 13:27 HPI General Mode of arrival: ambulatory. Date/Time Provider Initiated Documentation: 01/18/25 13:06. Limitations to Documentation: no limitations. Information obtained by: patient and old records reviewed. HPI Narrative: This is a 74-year-old male patient with a past medical history significant for hypertension, and a recent visit for a right fifth digit laceration requiring sutures, presenting for suture removal. The wound occurred 10 days ago, he has been performing wound care as recommended, and has noted significant improvement in his pain. He has not noted any swelling, redness, drainage or discharge. He has controlled pain and no limitation in range of motion nor new neurodeficits. This is an isolated complaint and the patient is otherwise in his normal state of health. Related Data Home Medications ?Medication ?Instructions ?Recorded ?Confirmed acyclovir 400 mg tablet 400 mg PO BID #180 tab-caps 05/21/16 01/18/25 aspirin 81 mg tablet 81 mg PO DAILY 12/30/20 01/18/25 simvastatin 40 mg tablet 40 mg PO HS #90 tab-caps 08/17/24 01/18/25 fluoxetine 20 mg capsule 20 mg PO DAILY #90 tab-caps 12/17/24 01/18/25 Previous Rx's ?Medication ?Instructions ?Recorded simvastatin 40 mg tablet 40 mg PO HS #90 tab-caps 08/17/24 fluoxetine 20 mg capsule 20 mg PO DAILY #90 tab-caps 12/17/24 Allergies Allergy/AdvReac Type Severity Reaction Status Date / Time No Known Allergies Allergy Unverified 01/09/25 18:38 General Stated Complaint: SutureRem SUSAN: 5 Exam Narrative Exam Narrative: Gen: Awake and alert, in no apparent distress HEENT: Non-icteric sclera Neck: Supple Lungs: No apparent respiratory distress, normal respiratory effort. CV: Appears well perfused Abdomen: Non-distended MSK: Moves 4 extremities without apparent limitation in ROM. There is a 1 and half centimeter laceration to the lateral aspect of the fifth pinky, well-approximated and healing. 5 simple interrupted sutures are appreciated. Skin: Visualized skin without rashes, cyanosis. Neuro: Normal Gait, no obvious focal deficits or facial asymmetry. Speaks in full, clear sentences. Psych: Appropriate for situation. Course Vital Signs Vital signs: Vital Signs Temperature 36.6 C 01/18/25 13:09 Pulse 70 01/18/25 13:09 Respiratory Rate 20 01/18/25 13:09 Blood Pressure 129/82 01/18/25 13:09 Pulse Oximetry 92 01/18/25 13:09 Temperature 36.6 C 01/18/25 13:09 Temperature Source Oral 01/18/25 13:09 Pulse 70 01/18/25 13:09 Respiratory Rate 20 01/18/25 13:09 Blood Pressure 129/82 01/18/25 13:09 Blood Pressure Position Sitting 01/18/25 13:09 Pulse Oximetry 92 01/18/25 13:09 Oxygen Delivery Method Room Air 01/18/25 13:09 Oxygen Flow Rate 0 01/18/25 13:09 Pain Level 0 01/18/25 13:09 Medical Decision Making This is a 74-year-old male patient presenting on day 10 for suture removal from his right pinky. Reassuringly there is no evidence of wound infection, neurovascular deficit, and the patient is otherwise in his normal state of health. 5 sutures were removed by this provider, patient tolerated the procedure well and the wound was well-approximated at the completion of this process. At this time, the patient has had a full medical evaluation and is safe for discharge to home. They are hemodynamically stable, ambulatory, and tolerating PO. They are understanding of the follow-up plan and return precautions. They left our facility without incident. Nolvia Abdalla MD [facility] All Active Problems (Updated 01/18/25 @ 13:15 by Nolvia Abdalla MD) Encounter for removal of sutures (Acute) Finger laceration (Acute) Urge incontinence (Acute) Dupuytren's contracture of right hand (Acute) s/p xiaflex injection [facility] 05/2024 Foot pain (Acute) upcoming podiatry referral Hyperlipidemia (Chronic) Impaired fasting glucose (Acute) history of elevated blood sugar Essential hypertension (Acute) Depressive disorder (Acute) Castro hemangioma (Acute) Visual impairment (Acute) Actinic keratosis (Acute) Medical History (Updated 01/18/25 @ 13:15 by Nolvia Abdalla MD) Nonsustained ventricular tachycardia Cardiology evaluation; felt to be not pathologic, no further cardiac care needed. COVID-19 11/23/21 Vaccinated Boosted Umbilical hernia without obstruction and without gangrene found during preop for colonoscopy Retinal detachment, right (~2015) followed by [facility] Dr. Bowen Tremor, essential History of ischemic vertebrobasilar artery brainstem stroke (~2016) Sudden onset right arm weakness and hoarseness. Possible tiny brainstem stroke according to neurologist Resolved speech impairment after 6 weeks. 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 Closed fracture of ankle (~2010) trimalleolar History of arthroscopy of knee Status post cystoscopy Status post tonsillectomy Status post vasectomy Status post removal of Zenker's diverticulum (~2009) surgery done at [facility] History of bilateral knee arthroplasty History of detached retina repair History of tonsillectomy and adenoidectomy History of total right hip arthroplasty Family History Mother , age 92 Essential hypertension Father , age 69 Neoplasm LUNG AND THROAT Lung cancer Throat cancer Sister No problems noted. Maternal Grandfather , age 72 Colon cancer Son No problems noted. Daughter No problems noted. Daughter No problems noted. Paternal Grandfather No problems noted. Maternal Grandmother No problems noted. Paternal Grandmother No problems noted. Social History (Updated 09/27/24 @ 10:35 by Liz Ordaz) Smoking/Tobacco Use Status: Never Second Hand Exposure: Yes Smoking risk assessment performed?: Yes Alcohol Intake: current Alcohol Intake frequency: a few times a week Alcohol type: beer, wine and hard liquor Drug use: Never Substance use type: does not use Adopted: No Caregiver/Support person: No Household members: spouse Housing: house Number of Children: 3 number of grandchildren: 4 Communication Needs: Hard of Hearing, Blind and Corrective Lenses Education Level: college Details: [employer] liberal arts Do you need help understanding health information?: Often 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 Pets and animals: Yes Pets and animals: dog(s) Sexually active: No Do you think of yourself as: straight/heterosexual Current gender identity: male What is your relationship status?: How often do you talk on the phone with friends or family?: three or more times per week How often do you get together with friends or relatives?: three or more times per week How often do you attend adventism or adventist services?: 1-3 times per year Do you belong to any clubs or organized social groups?: yes Panel score (0-1 are the most socially isolated patients): 3 Duration: 30-45 minutes/day Frequency: 3-4 times per week Liv/Zoroastrian: Episcopal Special liv needs: No Seatbelt use: always Helmet use: Yes Helmet use: always Drive intox or ride w/intox fast food delivery driver: No Firearms in home: Yes Firearms unloaded and locked: Yes Do you feel safe at home: Yes Do you feel safe in your relationship?: Yes Victim of physical abuse: No Victim of emotional abuse: No Victim of sexual abuse: No Would you like helpful sources: No Additional Social history: Enjoys making things, repairing, building.
== END 2025-01-18 13:27 | disposition home or self-care (01) ==
PROVIDERS: Emergency Provider Emergency Medicine; PCP Family Medicine
DX: S61.216D Laceration without foreign body of right little finger without damage to nail, subsequent encounter (principal); X58.XXXD Exposure to other specified factors, subsequent encounter